=== PATIENT | female | born 1930 | race Caucasian/White ===

== ENCOUNTER 2018-09-14 17:11 | Inpatient (IN) | payer MEDICARE ==
--- NOTE | 2018-09-14 17:37 | ED Physician Chart ---
ED Chief Complaint/HPI - Patient Information Date Seen:: 09/14/18 Time Seen:: 17:25 Chief Complaint:: agitation History of Present Illness:: Patient's had nearly constant screaming for the last few months. She's also had an unknown amount of weight loss over the last 2 months. Patient is wheelchair-bound. Allergies:: Allergies Allergy/AdvReac Type Severity Reaction Status Date / Time codeine Allergy Verified 09/14/18 17:24 divalproex sodium Allergy Verified 09/14/18 17:23 [From Depakote] Sulfa (Sulfonamide Allergy Verified 09/14/18 17:25 Antibiotics) sulfamethoxazole Allergy Verified 09/14/18 17:23 [From Bactrim] trimethoprim [From Bactrim] Allergy Verified 09/14/18 17:23 sulfate Allergy Uncoded 09/14/18 17:24 Historian:: Family Member Review:: Nurse's Note Reviewed ED Review of Systems - Review of Systems General/Constitutional: No fever, No chills, No weight loss, No weakness, No diaphoresis, No edema, No loss of appetite Skin: No skin lesions, No rash, No bruising Head: No headache, No light-headedness Eyes: No loss of vision, No pain, No diplopia ENT: No earache, No nasal drainage, No sore throat, No tinnitus Neck: No neck pain, No swelling, No thyromegaly, No stiffness, No mass noted Cardio Vascular: No chest pain, No palpitations, No PND, No orthopnea, No edema Pulmonary: No SOB, No cough, No sputum, No wheezing GI: No nausea, No vomiting, No diarrhea, No pain, No melena, No hematochezia, No constipation, No hematemesis G/U: No dysuria, No frequency, No hematuria Musculoskeletal: No bone or joint pain, No back pain, No muscle pain Endocrine: No polyuria, No polydipsia Psychiatric: Prior psych history, Anxiety, Other (agitation) Hematopoietic: No bruising, No lymphadenopathy Allergic/Immuno: No urticaria, No angioedema Neurological: No syncope, No focal symptoms, No weakness, No paresthesia, No headache, No seizure, No dizziness, No confusion, No vertigo ED Past Medical History - Past Medical History Past Medical History: HTN, Dementia Family History: HTN Social History: Non Smoker, No Alcohol Surgical History: Appendectomy, Hysterectomy, other (tonsillectomy) Psychiatricy History: Dementia Medication: Reviewed ED Physical Exam - Physical Examination General/Constitutional: Awake, Well-developed, well-nourished Other Gen/Cons comments:: Chronically ill-appearing; almost constant screaming Head: Atraumatic Eyes: Lids, conjuctiva normal, PERRL Skin: Nl inspection, No rash ENMT: External ears, nose nl, Lips, teeth, gums nl Neck: No stridor Respiratory: Nl effort/Exclusion, Clear to Auscultation Other Cardio Vascular comments:: Heart sounds faint; pulse regular GI: No tenderness/rebounding/guarding Extremities: Normal digits & nails Neuro/Psych: No focal deficits ED Labs/Radiology/EKG Results - Lab Results Results: Laboratory Results WBC 13.2 Th/cmm (4.8-10.8) H 09/14/18 17:40 RBC 4.42 Mil/cmm (3.80-5.20) 09/14/18 17:40 Hgb 13.8 gm/dL (12-16) 09/14/18 17:40 Hct 40.5 % (41.0-60) L 09/14/18 17:40 MCV 91.7 fl (81-100) 09/14/18 17:40 MCH 31.2 pg (27.0-31.0) H 09/14/18 17:40 MCHC Differential 34.0 pg (28.0-36.0) 09/14/18 17:40 RDW 15.4 % (11.5-20.0) 09/14/18 17:40 Plt Count 425 Th/cmm (150-400) H 09/14/18 17:40 MPV 7.5 fl 09/14/18 17:40 Neutrophils % 83.8 % (40.0-80.0) H 09/14/18 17:40 Lymphocytes % 11.0 % (20.0-50.0) L 09/14/18 17:40 Monocytes % 4.5 % (2.0-10.0) 09/14/18 17:40 Eosinophils % 0.7 % (0.0-5.0) 09/14/18 17:40 Basophils % 0.0 % (0.0-2.0) 09/14/18 17:40 Sodium 139 mEq/L (136-145) 09/14/18 17:40 Potassium 4.1 mEq/L (3.5-5.1) 09/14/18 17:40 Chloride 103 mEq/L (98-107) 09/14/18 17:40 Carbon Dioxide 26.5 mEq/L (21.0-31.0) 09/14/18 17:40 Anion Gap 13.6 (7.0-16.0) 09/14/18 17:40 BUN 20 mg/dL (7-25) 09/14/18 17:40 Creatinine 0.7 mg/dL (0.6-1.2) 09/14/18 17:40 Est GFR ( Amer) TNP 09/14/18 17:40 Est GFR (Non-Af Amer) TNP 09/14/18 17:40 BUN/Creatinine Ratio 28.6 09/14/18 17:40 Glucose 125 mg/dL (70-105) H 09/14/18 17:40 Calcium 9.7 mg/dL (8.6-10.3) 09/14/18 17:40 Total Bilirubin 0.4 mg/dL (0.3-1.0) 09/14/18 17:40 AST 21 U/L (13-39) 09/14/18 17:40 ALT 15 U/L (7-52) 09/14/18 17:40 Alkaline Phosphatase 114 U/L (34-104) H 09/14/18 17:40 Total Protein 7.5 gm/dL (6.0-8.3) 09/14/18 17:40 Albumin 4.0 gm/dL (3.7-5.3) 09/14/18 17:40 Globulin 3.5 gm/dL 09/14/18 17:40 Albumin/Globulin Ratio 1.1 (1.0-1.8) 09/14/18 17:40 Triglycerides 139 mg/dL (<150) 09/14/18 17:40 Cholesterol 168 mg/dL (<200) 09/14/18 17:40 LDL Cholesterol Direct 94 mg/dL (75-193) 09/14/18 17:40 HDL Cholesterol 48 mg/dL (23-92) 09/14/18 17:40 - EKG Interpretations Rate & Rhythm: sinus tachycardia with a rate of 112 Norvell: normal axis Comments:: 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 Patient has a pulse ox of 97% on room air and was not observed to be coughing. Because of the patient's dementia and extreme agitation it would be very difficult to obtain a urine for urinalysis. ED Septic Shock - . Is Septic Shock (SBP<90, OR Lactate>4 mmol\L) present?: No ED Reassessment (Disposition) - Reassessment Reassessment Condition:: Unchanged - Diagnosis Diagnosis:: Dementia with extreme agitation - Patient Disposition Admitted to:: [facility] Admitting Medical Physician:: Vadim Taylor Admitting Psych Physician:: Brendan Espinoza
[2018-09-14 17:47] LABS: % EOSINOPHILS 0.7 % (0.0-5.0); % MONOCYTES 4.5 % (2.0-10.0); % NEUTROPHILS 83.8 % (40.0-80.0); EOSINOPHILE ABSOLUTE 0.1 Th/cmm (0.1-0.4); HEMATOCRIT 40.5 % (41.0-60); HEMOGLOBIN 13.8 gm/dL (12-16); LYMPHOCYTE ABSOLUTE 1.5 Th/cmm (1.5-3.0); MEAN CELL VOLUME 91.7 fl (81-100); MEAN CORPUSCULAR HEMOGLOBIN 31.2 pg (27.0-31.0); MEAN PLATELET VOLUME 7.5 fl; MONOCYTE ABSOLUTE 0.6 Th/cmm (0.3-1.0); PLATELET COUNT 425 Th/cmm (150-400); RED BLOOD COUNT 4.42 Mil/cmm (3.80-5.20); RED CELL DISTRIBUTION WIDTH 15.4 % (11.5-20.0); WHITE BLOOD COUNT 13.2 Th/cmm (4.8-10.8)
[2018-09-14 18:01] LABS: ALB/GLOB RATIO 1.1 (1.0-1.8); ALKALINE PHOSPHATASE 114 U/L (34-104); ANION GAP 13.6 (7.0-16.0); BILIRUBIN,TOTAL 0.4 mg/dL (0.3-1.0); BUN - UREA NITROGEN 20 mg/dL (7-25); CALCIUM SERUM 9.7 mg/dL (8.6-10.3); CARBON DIOXIDE 26.5 mEq/L (21.0-31.0); CHLORIDE 103 mEq/L (98-107); CHOLESTEROL 168 mg/dL (<200); CREATININE - SERUM 0.7 mg/dL (0.6-1.2); GLUCOSE 125 mg/dL (70-105); HDL -HIGH DENSITY LIPOPROTEIN 48 mg/dL (23-92); POTASSIUM SERUM 4.1 mEq/L (3.5-5.1); SGOT 21 U/L (13-39); SGPT/ALT 15 U/L (7-52); SODIUM SERUM 139 mEq/L (136-145); TOTAL PROTEIN,SERUM 7.5 gm/dL (6.0-8.3); TRIGLYCERIDES 139 mg/dL (<150)
[2018-09-14] MEDS ORDERED: Haloperidol Lactate 5 mg/mL 1mL Vial IM PRN (20:10)
[2018-09-14] MEDS ORDERED: Haloperidol Lactate 5 mg/mL 1mL Vial ONE (20:29)
[2018-09-14] MEDS ORDERED: Fleet Enema 135 mL RC PRN (22:37)
[2018-09-15] MEDS: cefTRIAXone 1 GM in Sodium Chloride 0.9% 50 ML IV SCH ×2 (01:29→22:47)
[2018-09-15 06:42] LABS: ALB/GLOB RATIO 1.1 (1.0-1.8); ALBUMIN 3.8 gm/dL (3.7-5.3); ALKALINE PHOSPHATASE 125 U/L (34-104); ANION GAP 15.4 (7.0-16.0); BILIRUBIN,TOTAL 0.4 mg/dL (0.3-1.0); BUN - UREA NITROGEN 18 mg/dL (7-25); CALCIUM SERUM 9.6 mg/dL (8.6-10.3); CHLORIDE 105 mEq/L (98-107); CREATININE - SERUM 0.6 mg/dL (0.6-1.2); GLUCOSE 143 mg/dL (70-105); POTASSIUM SERUM 3.4 mEq/L (3.5-5.1); SGOT 22 U/L (13-39); SGPT/ALT 14 U/L (7-52); SODIUM SERUM 141 mEq/L (136-145); TOTAL PROTEIN,SERUM 7.2 gm/dL (6.0-8.3)
[2018-09-15 06:55] LABS: % BASOPHILS 0.6 % (0.0-2.0); % EOSINOPHILS 1.1 % (0.0-5.0); % LYMPHOCYTES 10.1 % (20.0-50.0); % MONOCYTES 5.2 % (2.0-10.0); BASOPHILE ABSOLUTE 0.1 Th/cumm (0-0.2); EOSINOPHILE ABSOLUTE 0.1 Th/cmm (0.1-0.4); HEMATOCRIT 38.3 % (41.0-60); HEMOGLOBIN 12.7 gm/dL (12-16); LYMPHOCYTE ABSOLUTE 1.3 Th/cmm (1.5-3.0); MEAN CELL VOLUME 91.9 fl (81-100); MEAN CORPUSCULAR HEMOGLOBIN 30.5 pg (27.0-31.0); MEAN CORPUSCULAR HGB CONC 33.2 pg (28.0-36.0); MONOCYTE ABSOLUTE 0.7 Th/cmm (0.3-1.0); PLATELET COUNT 416 Th/cmm (150-400); RED BLOOD COUNT 4.17 Mil/cmm (3.80-5.20); RED CELL DISTRIBUTION WIDTH 15.4 % (11.5-20.0); WHITE BLOOD COUNT 13.2 Th/cmm (4.8-10.8)
--- NOTE | 2018-09-15 07:54 | Consultation ---
DATE OF CONSULTATION: 09/15/2018 PSYCHIATRIC CONSULT PATIENT'S AGE: 88. SEX: Female. PHYSICIAN: Dr. Taylor. BOTTLE HOUSE PUMPER: Dr. Vallecillo. TYPE OF THE REPORT: Psychiatric consult. REASON FOR THE CONSULT: Agitation. HISTORY OF PRESENT ILLNESS: The patient is an 88-year-old female with history of dementia. The patient was transferred from [facility] because of increased agitation and because of irritability and difficulty following directions. The patient has been easily agitated and irritable. Chart reviewed and the patient interviewed and discussed the patient's condition with the staff and reviewed records and labs. The patient has been yelling and screaming and during my interview, the patient was not able to follow any of my directions and can kept yelling and screaming constantly. She also has been restless and has been having mood swings. She also has been in angry mood and she was not able to answer any of my questions coherently. No information was able to be obtained from the patient because of her psychosis and because of her confusion. Most of the information was obtained from staff and from the chart and my trial to interview the patient. PAST PSYCHIATRIC HISTORY: The patient has history of dementia. PAST MEDICAL HISTORY: The patient has history of seizure disorder and the patient is on Dilantin. The patient also is status post hip surgery in November of last year. MENTAL STATUS EXAM: The patient appears her stated age. Yelling and screaming. Irritable mood. Disorganized thoughts. The patient is unable to answer any of my questions coherently and kept yelling and screaming during my interview. The patient also is restless and the patient is not able to follow any of my directions. ASSESSMENT: PRIMARY DIAGNOSIS: Dementia, severe, with psychotic features and behavioral disturbances. TREATMENT PLAN: We will continue to monitor her behavior and her condition. Also, we will add Risperdal in a dose of 0.25 mg twice a day and we will continue to follow up closely. Thanks to Dr. Taylor and we will follow up with you. [facility]# [id number]
[2018-09-15 08:16] LABS: URINE SOURCE CATH
[2018-09-15 08:18] LABS: URINE BILIRUBIN NEGATIVE (NEGATIVE); URINE BLOOD SMALL (NEGATIVE); URINE GLUCOSE (UA) NEGATIVE (NEGATIVE); URINE KETONE NEGATIVE (NEGATIVE); URINE LEUKOCYTE ESTERASE LARGE (NEGATIVE); URINE MICROSCOPIC INDICATED? YES; URINE NITRATE NEGATIVE (NEGATIVE); URINE PH 6.5 (4.6 - 8.0); URINE PROTEIN 30 mg/dL (NEGATIVE); URINE UROBILINOGEN 0.2 E.U./dL (0.2 - 1.0)
[2018-09-15 08:21] LABS: URINE CLARITY CLOUDY (CLEAR); URINE COLOR YELLOW
[2018-09-15 08:32] LABS: URINE BACTERIA MODERATE /hpf (NONE SEEN); URINE EPITHELIAL CELLS NONE SEEN /lpf (FEW); URINE WBC >100 /hpf (0-5)
--- NOTE | 2018-09-15 08:52 | Diagnostic Imaging Report ---
Portable chest x-ray HISTORY: Cough There is a severe scoliosis of the thoracic spine convexity to the right. Patient is rotated. Heart size is difficult to assess. No focal pulmonary processes. IMPRESSION: 1. No acute abnormalities 2. Severe scoliosis
--- NOTE | 2018-09-15 08:55 | Diagnostic Imaging Report ---
CT scan of the brain without intravenous contrast HISTORY: Stroke, CVA Total DLP equals 911 CTDI equals 44.2 Axial sections were obtained from the base of the skull to the vertex. Extensive artifact related to dental metallic hardware compromises evaluation of the posterior fossa. There is enlargement of the ventricular system size. Associated enlargement of cerebral sulci and subarachnoid cisterns. Findings are consistent with changes of generalized cerebral atrophy. No acute parenchymal abnormalities. No acute cerebral hemorrhage. Extensive hypodensity is seen within the supratentorial white matter regions without mass effect. The findings may be associated with chronic small vessel ischemic disease. No extra-axial masses or abnormal fluid collections. IMPRESSION: 1. No acute abnormalities 2. Cerebral atrophy 3. Extensive supratentorial white matter changes that may reflect chronic small vessel ischemic disease 4. Somewhat compromised exam of the posterior fossa related to artifact associated with metallic dental hardware
[2018-09-15] MEDS ORDERED: LOSARTAN PO SCH (09:00)
[2018-09-15] MEDS ORDERED: HYDROCHLOROTHIAZIDE PO SCH (09:00)
[2018-09-15] MEDS ORDERED: Probiotic Screen MC PRN (09:01)
[2018-09-15] MEDS ORDERED: cefTRIAXone 1 GM in Sodium Chloride 0.9% 50 ML IV ONE (09:24)
[2018-09-15] MEDS: Polyvinyl Alcohol Ophth Soln 15 mL Bottle EACH EYE SCH ×2 (10:27→17:32)
[2018-09-15] MEDS: Lactobacillus Rhamnosus GG 15 Billion CFU CAP.SPRINK PO SCH ×2 (10:28→17:33)
[2018-09-15] MEDS ORDERED: VTE Chemical Prophylaxis Screen/Admission MC PRN (15:51)
--- NOTE | 2018-09-15 17:26 | History & Physical ---
ADMIT DATE: 09/14/2018 PATIENT IDENTIFICATION: An 88-year-old female. CHIEF COMPLAINT: Increasing confusion and agitation. HISTORY OF PRESENT ILLNESS: An 88-year-old female presented to [facility] for evaluation of increasing agitation, aggressive behavior and significant change from the baseline. The patient has been having a significant amount of weight loss for last few months. The patient is pretty much wheelchair bound. She was evaluated by Emergency Room MD and noted to have a leukocytosis. According to the patient's family member that whenever she has this type of agitation and aggressive behavior, there is some infection playing a role. She was recently admitted at [facility] and she was diagnosed to have urinary tract infection. The patient is extremely agitated and unable to get the urine from her. She was also seen by the psychiatrist prior to my visit today. The patient currently does not provide any meaningful history. PAST MEDICAL HISTORY: Remarkable for: 1. Hypertension. 2. Dementia. 3. DJD. 4. Depression. 5. Glaucoma. MEDICATIONS AT HOME: The patient is taking multiple medicines which include eyedrops, mirtazapine, losartan, Lactobacillus, gabapentin, Fleet Enema, Aricept, Colace, Tylenol. ALLERGIES: THE PATIENT IS ALLERGIC TO CODEINE AND DEPAKOTE. SOCIAL HISTORY: She is a resident of [facility]. No history of smoking, alcohol, or drug use. FAMILY MEDICAL HISTORY: Unavailable. REVIEW OF SYSTEMS: Unable to get meaningful history from the patient. PHYSICAL EXAMINATION: GENERAL: An 88-year-old ill-appearing female lying in the bed. VITAL SIGNS: Temperature 97.7, pulse 86, respiratory rate was 18, blood pressure 163/77. HEENT: Normocephalic, atraumatic. Extraocular eye muscles are intact. Tongue was pink and coated. Absent upper and lower dentition noted. No facial asymmetry. NECK: Supple, no JVD, no hepatojugular reflex, no lymphadenopathy, thyromegaly or carotid bruit. HEART: Both heart sounds are regular. Grade 2/6 systolic murmur noted. CHEST: Lung equal in expansion, no expiratory wheezing. ABDOMEN: Soft. No guarding, no rigidity. Bowel sounds present. No palpable mass. EXTREMITIES: No edema, no cyanosis. Diffuse osteoarthritic changes noted. NEUROLOGIC: Unable to perform, though the patient is moving upper and lower extremities without any difficulty. AVAILABLE DIAGNOSTIC DATA: White count 13.2, hemoglobin 13.8, platelet count of 425. EKG normal sinus rhythm with a rate of 112. Old anterior wall W[place] noted. Chest x-ray done, which no congestion. CT head consistent with atrophy of brain. Urinalysis has been sent, which remarkable for cloudy urine, 30+ protein, large leukocyte esterase, small amount of blood, more than 100 wbc, moderate amount of bacteria. CLINICAL IMPRESSION: 1. Encephalopathy secondary to infectious etiology. 2. Urinary tract infection. 3. Hypertension. 4. Dementia. 5. Psychosis with dementia. 6. Degenerative joint disease. 7. Osteoporosis. 8. High risk for fall. PLAN: The patient is advised at this time to start IV Rocephin 1 gram daily, have Neurology and psychiatrist evaluation. Appropriate home medicine reconciliation. IV hydration, nutritional support, general nursing care and follow lab and follow business analysis consultant recommendations. Care plan has been reviewed and discussed with staff. [facility]# [id number]
[2018-09-15] MEDS: Heparin Sod 5,000Units/ML 5,000 UNITS/ML VIAL SUBQ SCH (20:29)
[2018-09-16] MEDS: Heparin Sod 5,000Units/ML 5,000 UNITS/ML VIAL SUBQ SCH ×2 (09:21→20:17)
[2018-09-16] MEDS: Lactobacillus Rhamnosus GG 15 Billion CFU CAP.SPRINK PO SCH ×2 (09:23→17:05)
[2018-09-16] MEDS: Polyvinyl Alcohol Ophth Soln 15 mL Bottle EACH EYE SCH ×2 (09:24→17:06)
[2018-09-16] MEDS: D5-0.45NS 1,000 ML IV SCH (13:33)
--- NOTE | 2018-09-16 21:56 | Progress Notes ---
DATE: 09/16/[address] Vallecillo. Case was discussed with staff of the patient, reviewed records. This is an 88-year-old female who was admitted on 09/14/2018. She was seen by Dr. Vallecillo yesterday because of extreme agitation, was initiated on Risperdal. The patient yesterday was very agitated, yelling and screaming, was unable to give any information. Today, she is more on the sedated side. The staff report that she is improving. She is also on Remeron 15 mg twice a day that was initiated by Dr. Taylor. The patient recommended to continue the same medication. The patient needs follow up with a psychiatrist when discharged. Thank you very much for allowing me to participate in the care of this most interesting lady. [facility]# [id number]
[2018-09-16] MEDS: cefTRIAXone 1 GM in Sodium Chloride 0.9% 50 ML IV SCH (22:05)
--- NOTE | 2018-09-17 02:07 | Progress Notes ---
DATE: 09/16/2018 IDENTIFICATION: An 88-year-old female. SUBJECTIVE: The patient seen and examined. The patient is lying in the bed. The patient has no new event. Urine culture is currently pending. The patient is not violent as per nursing staff, not aggressive as per nursing staff. PHYSICAL EXAMINATION: VITAL SIGNS: Temperature 97.6, pulse 88, respiratory rate 18, blood pressure 113/50. HEENT: Poor dentition. NECK: Supple, no JVD. HEART: Regular. CHEST: Lungs equal in expansion, no expiratory wheezing. ABDOMEN: Soft. EXTREMITIES: No edema. CLINICAL IMPRESSION: 1. Encephalopathy, infectious in etiology. 2. Complicated urinary tract infection. 3. Hypertension. 4. Dementia. 5. Degenerative joint disease. 6. Protein-calorie malnutrition. 7. Psychosis. 8. Osteoporosis. 9. High risk for fall. PLAN: 1. Continue antibiotic. 2. Await for cultures. 3. Provide IV fluid and nutritional support. 4. Psychiatric medication and psych followup. 5. General nursing care. 6. Follow labs. 7. Follow data warehouse consultant's recommendations. 8. Care plan reviewed and discussed with staff. JOB# [id number]
[2018-09-17 06:55] LABS: ALB/GLOB RATIO 1.1 (1.0-1.8); ALBUMIN 3.6 gm/dL (3.7-5.3); ALKALINE PHOSPHATASE 122 U/L (34-104); ANION GAP 11.9 (7.0-16.0); BILIRUBIN,TOTAL 0.5 mg/dL (0.3-1.0); BUN - UREA NITROGEN 16 mg/dL (7-25); CALCIUM SERUM 9.3 mg/dL (8.6-10.3); CARBON DIOXIDE 25.4 mEq/L (21.0-31.0); CHLORIDE 106 mEq/L (98-107); CREATININE - SERUM 0.5 mg/dL (0.6-1.2); GLUCOSE 119 mg/dL (70-105); POTASSIUM SERUM 3.3 mEq/L (3.5-5.1); SGOT 16 U/L (13-39); SGPT/ALT 12 U/L (7-52); SODIUM SERUM 140 mEq/L (136-145); TOTAL PROTEIN,SERUM 6.8 gm/dL (6.0-8.3)
[2018-09-17 06:56] LABS: % LYMPHOCYTES 12.2 % (20.0-50.0); % MONOCYTES 5.3 % (2.0-10.0); % NEUTROPHILS 81.5 % (40.0-80.0); EOSINOPHILE ABSOLUTE 0.1 Th/cmm (0.1-0.4); HEMATOCRIT 36.9 % (41.0-60); HEMOGLOBIN 12.2 gm/dL (12-16); LYMPHOCYTE ABSOLUTE 1.4 Th/cmm (1.5-3.0); MEAN CELL VOLUME 92.9 fl (81-100); MEAN CORPUSCULAR HEMOGLOBIN 30.6 pg (27.0-31.0); MEAN CORPUSCULAR HGB CONC 32.9 pg (28.0-36.0); MONOCYTE ABSOLUTE 0.6 Th/cmm (0.3-1.0); NEUTROPHILE ABSOLUTE 9.1 Th/cmm (1.8-8.0); PLATELET COUNT 343 Th/cmm (150-400); RED BLOOD COUNT 3.97 Mil/cmm (3.80-5.20); RED CELL DISTRIBUTION WIDTH 14.8 % (11.5-20.0); WHITE BLOOD COUNT 11.2 Th/cmm (4.8-10.8)
[2018-09-17] MEDS: Polyvinyl Alcohol Ophth Soln 15 mL Bottle EACH EYE SCH ×2 (08:34→17:11)
[2018-09-17] MEDS: Lactobacillus Rhamnosus GG 15 Billion CFU CAP.SPRINK PO SCH ×2 (08:35→16:56)
[2018-09-17] MEDS: Heparin Sod 5,000Units/ML 5,000 UNITS/ML VIAL SUBQ SCH ×2 (08:38→22:39)
[2018-09-17] MEDS: D5-0.45NS 1,000 ML IV SCH (13:16)
[2018-09-17] MEDS ORDERED: Potassium Chloride 20 mEq ER Tab PO ONE ×2 (13:42→13:45)
--- NOTE | 2018-09-17 22:17 | Progress Notes ---
DATE: 09/17/2018 Case was discussed with staff of the patient, reviewed records. The patient in general has been calmer, sleeping better, eating better. No side effects with the medication, no sedation, no nausea. She is not as agitated. The Risperdal has helped. The patient needs to be continued to be monitored. The patient needs follow up with the psychiatrist upon discharge. Thank you very much for allowing me to participate in the care of this most interesting gentleman. JOB# [id number]
[2018-09-17] MEDS: cefTRIAXone 1 GM in Sodium Chloride 0.9% 50 ML IV SCH (22:38)
--- NOTE | 2018-09-18 08:04 | Progress Notes ---
DATE: THE PATIENT'S IDENTIFICATION: An 88-year-old female. SUBJECTIVE: The patient was seen and examined. The patient is lying in the bed. The patient is more alert and awake. The patient was able to eat fairly well. OBJECTIVE: VITAL SIGNS: On exam; temperature 97, pulse is 80, respiratory rate 18, blood pressure 146/51. HEENT: No facial asymmetry. Poor dentition noted. NECK: Supple, no JVD, no hepatojugular reflex. No lymphadenopathy or thyromegaly. HEART: Both heart sounds are regular. CHEST AND LUNGS: Equal in expansion, no expiratory wheezing. ABDOMEN: Soft. No guarding. No rigidity. Bowel sounds are present. No palpable mass. EXTREMITIES: No edema, no cyanosis. NEUROLOGIC: Alert and awake, follows commands. AVAILABLE DIAGNOSTIC DATA: Has been reviewed. CLINICAL IMPRESSIONS: 1. Complicated urinary tract infection. 2. Encephalopathy. 3. Dementia. 4. Hypertension. 5. Degenerative joint disease. PLAN: The patient is currently clinically improving. At this time, the patient will be considered transfer to Geropsych Unit. Meanwhile, continue current medication as prescribed. Upon transfer, the patient's medication will be switched to p.o. antibiotic. We will give the patient's p.o. potassium as well. Follow up lab will be done. JOB# [id number]
[2018-09-18] MEDS: Lactobacillus Rhamnosus GG 15 Billion CFU CAP.SPRINK PO SCH ×2 (09:50→17:05)
[2018-09-18] MEDS: Heparin Sod 5,000Units/ML 5,000 UNITS/ML VIAL SUBQ SCH ×2 (09:59→20:35)
[2018-09-18] MEDS: D5-0.45NS 1,000 ML IV SCH (10:34)
[2018-09-18] MEDS: Polyvinyl Alcohol Ophth Soln 15 mL Bottle EACH EYE SCH ×3 (10:35→18:08)
--- NOTE | 2018-09-18 12:59 | Internal Medicine Prog Note ---
Internal Medicine Subjective - Subjective Service Date: 09/18/18 Patient seen and examined:: with staff Patient is:: awake, agitated, confused Patient Complaints of:: weight loss Per staff patient has:: no adverse event, no episodes of fall Internal Medicine Objective - Results Result Diagrams: 09/17/18 06:25 09/17/18 06:25 Recent Labs: Laboratory Last Values WBC 11.2 Th/cmm (4.8-10.8) H 09/17/18 06:25 RBC 3.97 Mil/cmm (3.80-5.20) 09/17/18 06:25 Hgb 12.2 gm/dL (12-16) 09/17/18 06:25 Hct 36.9 % (41.0-60) L 09/17/18 06:25 MCV 92.9 fl (81-100) 09/17/18 06:25 MCH 30.6 pg (27.0-31.0) 09/17/18 06:25 MCHC Differential 32.9 pg (28.0-36.0) 09/17/18 06:25 RDW 14.8 % (11.5-20.0) 09/17/18 06:25 Plt Count 343 Th/cmm (150-400) 09/17/18 06:25 MPV 8.0 fl 09/17/18 06:25 Neutrophils % 81.5 % (40.0-80.0) H 09/17/18 06:25 Lymphocytes % 12.2 % (20.0-50.0) L 09/17/18 06:25 Monocytes % 5.3 % (2.0-10.0) 09/17/18 06:25 Eosinophils % 1.0 % (0.0-5.0) 09/17/18 06:25 Basophils % 0.0 % (0.0-2.0) 09/17/18 06:25 Sodium 140 mEq/L (136-145) 09/17/18 06:25 Potassium 3.3 mEq/L (3.5-5.1) L 09/17/18 06:25 Chloride 106 mEq/L (98-107) 09/17/18 06:25 Carbon Dioxide 25.4 mEq/L (21.0-31.0) 09/17/18 06:25 Anion Gap 11.9 (7.0-16.0) 09/17/18 06:25 BUN 16 mg/dL (7-25) 09/17/18 06:25 Creatinine 0.5 mg/dL (0.6-1.2) L 09/17/18 06:25 Est GFR ( Amer) TNP 09/17/18 06:25 Est GFR (Non-Af Amer) TNP 09/17/18 06:25 BUN/Creatinine Ratio 32.0 09/17/18 06:25 Glucose 119 mg/dL (70-105) H 09/17/18 06:25 POC Glucose 125 MG/DL (70 - 105) H 09/15/18 09:36 Calcium 9.3 mg/dL (8.6-10.3) 09/17/18 06:25 Magnesium 2.0 mg/dL (1.9-2.7) 09/15/18 06:05 Total Bilirubin 0.5 mg/dL (0.3-1.0) 09/17/18 06:25 AST 16 U/L (13-39) 09/17/18 06:25 ALT 12 U/L (7-52) 09/17/18 06:25 Alkaline Phosphatase 122 U/L (34-104) H 09/17/18 06:25 Ammonia 71 umol/L (16-53) H 09/15/18 06:05 Total Protein 6.8 gm/dL (6.0-8.3) 09/17/18 06:25 Albumin 3.6 gm/dL (3.7-5.3) L 09/17/18 06:25 Globulin 3.2 gm/dL 09/17/18 06:25 Albumin/Globulin Ratio 1.1 (1.0-1.8) 09/17/18 06:25 Triglycerides 139 mg/dL (<150) 09/14/18 17:40 Cholesterol 168 mg/dL (<200) 09/14/18 17:40 LDL Cholesterol Direct 94 mg/dL (75-193) 09/14/18 17:40 HDL Cholesterol 48 mg/dL (23-92) 09/14/18 17:40 TSH 1.32 uIU/ml (0.34-5.60) 09/14/18 17:40 Urine Source CATH 09/15/18 08:00 Urine Color YELLOW 09/15/18 08:00 Urine Clarity CLOUDY (CLEAR) H 09/15/18 08:00 Urine pH 6.5 (4.6 - 8.0) 09/15/18 08:00 Ur Specific Irving 1.015 (1.005-1.030) 09/15/18 08:00 Urine Protein 30 mg/dL (NEGATIVE) H 09/15/18 08:00 Urine Glucose (UA) NEGATIVE mg/dL (NEGATIVE) 09/15/18 08:00 Urine Ketones NEGATIVE mg/dL (NEGATIVE) 09/15/18 08:00 Urine Blood SMALL (NEGATIVE) H 09/15/18 08:00 Urine Nitrate NEGATIVE (NEGATIVE) 09/15/18 08:00 Urine Bilirubin NEGATIVE (NEGATIVE) 09/15/18 08:00 Urine Urobilinogen 0.2 E.U./dL (0.2 - 1.0) 09/15/18 08:00 Ur Leukocyte Esterase LARGE (NEGATIVE) H 09/15/18 08:00 Urine RBC 10-25 /hpf (0-5) H 09/15/18 08:00 Urine WBC >100 /hpf (0-5) H 09/15/18 08:00 Ur Epithelial Cells NONE SEEN /lpf (FEW) 09/15/18 08:00 Urine Bacteria MODERATE /hpf (NONE SEEN) H 09/15/18 08:00 RPR NONREACTIVE (NONREACTIVE) 09/14/18 17:40 - Physical Exam Vitals and I&O: Vital Signs Temp 98 F 09/18/18 11:53 Pulse 80 09/18/18 11:53 Resp 18 09/18/18 11:53 BP 144/57 09/18/18 11:53 Pulse Ox 97 09/18/18 11:53 Intake & Output 09/17/18 09/18/18 09/18/18 18:59 06:59 18:59 Intake Total 1125 1000 Balance 1125 1000 Weight (lbs) 33.52 kg 34.156 kg Intake: Intake, IV Amount 1000 1000 D5-0.45NS 1,000 ml @ 50 1000 1000 mls/hr IV .Q20H VIC Rx#: [id number] Oral 125 Other: # Voids 3 3 # Bowel Movements 0 Weight Source Bedscale Bedscale Active Medications: Current Medications Acetaminophen (Tylenol) 650 mg PO Q4H PRN PRN Reason: Pain (Moderate) Stop: 11/14/18 05:35 Last Admin: 09/17/18 22:39 Dose: 650 mg Artificial Tears (Artificial Tears Ophth Soln) 2 drop EACH EYE BID [facility] Stop: 11/14/18 08:59 Last Admin: 09/18/18 10:40 Dose: Not Given Bisacodyl (Dulcolax 10 Mg Supp) 10 mg RC Q2D PRN PRN Reason: Constipation Stop: 11/13/18 22:36 Docusate Sodium (Colace) 100 mg PO BID [facility] Stop: 11/14/18 08:59 Last Admin: 09/18/18 09:47 Dose: 100 mg Donepezil HCl (Aricept) 5 mg PO HS [facility] Stop: 11/14/18 20:59 Last Admin: 09/17/18 22:39 Dose: 5 mg Gabapentin (Neurontin) 300 mg PO TID [facility] Stop: 11/14/18 08:59 Last Admin: 09/18/18 09:47 Dose: 300 mg Gentamicin Sulfate (Gentak 0.3% Ophth Soln) 1 drop EACH EYE TID [facility] Stop: 11/17/18 13:59 Heparin Sodium (Porcine) (Heparin) 5,000 units SUBQ Q12H [facility] Stop: 11/14/18 20:59 Last Admin: 09/18/18 09:59 Dose: 5,000 units Hydrochlorothiazide (Hctz) 25 mg PO DAILY [facility] Stop: 11/14/18 08:59 Last Admin: 09/18/18 09:56 Dose: 25 mg Ceftriaxone Sodium 1 gm/ (Sodium Chloride) 50 mls @ 100 mls/hr IV Q24HR [facility] Stop: 11/13/18 22:44 Last Admin: 09/17/18 22:38 Dose: 100 mls/hr Dextrose/Sodium Chloride (D5-0.45ns) 1,000 mls @ 50 mls/hr IV .Q20H [facility] Stop: 11/15/18 13:14 Last Admin: 09/18/18 10:34 Dose: 50 mls/hr Lactobacillus Rhamnosus (Culturelle 15b) 1 each PO BID [facility] Stop: 11/14/18 08:59 Last Admin: 09/18/18 09:50 Dose: 1 each Latanoprost (Xalatan 0.005% Ophth Soln) 1 drop EACH EYE HS [facility] Stop: 11/14/18 20:59 Last Admin: 09/17/18 23:17 Dose: 1 drop Losartan Potassium (Cozaar) 100 mg PO DAILY VIC Stop: 11/14/18 08:59 Last Admin: 09/18/18 09:56 Dose: 100 mg Mirtazapine (Remeron) 15 mg PO BID VIC; Protocol Stop: 11/14/18 08:59 Last Admin: 09/18/18 09:51 Dose: 15 mg Miscellaneous (Probiotic Screen) 1 ea PRN PRN PRN Reason: PROTOCOL Stop: 11/14/18 09:00 Miscellaneous (Vte Chemical Prophylaxis Screen/ Admission) 1 ea PRN PRN PRN Reason: PROTOCOL Stop: 11/14/18 15:50 Risperidone (Risperdal) 0.25 mg PO BID VIC; Protocol Stop: 11/14/18 11:59 Last Admin: 09/18/18 09:47 Dose: 0.25 mg Sodium Phosphate (Fleet Enema) 135 ml RC Q2D PRN PRN Reason: Constipation Stop: 11/13/18 22:36 Physical Exam: Patient is still very confused and agitated. General: demented Neck: Supple, No JVD Lungs: CTAB Cardiovascular: RRR, Normal S1 Abdomen: soft, non-tender Extremities: clear Neurological: no change, disorganized Internal Medicine Assmt/Plan - Assessment Assessment: Encephalopathy. UTI. Psychosis with Dementia. Osteoarthritis. High risk for fall. Htn. DJD.Depression. Glaucoma. - Plan Plan: Continuation of care. Monitor Vitals and Labs. Continue present meds as directed. Monitor Diet/Nutritional support. Monitor mental status progression. Monitor behavioral health status. Pain Management. Safety precaution. Supportive care. Fall precaution. Continue present care management. Nutritional Asmnt/Malnutr-PDOC - Dietary Evaluation Malnutrition Findings (Please click <Entered> for more info): see orders.
[2018-09-18] MEDS: Gentamicin 0.3% Ophth Soln 5mL Bottle EACH EYE SCH ×2 (17:06→20:51)
[2018-09-18] MEDS: cefTRIAXone 1 GM in Sodium Chloride 0.9% 50 ML IV SCH (22:39)
--- NOTE | 2018-09-19 00:11 | Progress Notes ---
DATE: 09/18/2018 SUBJECTIVE: The patient is seen and examined. PHYSICAL EXAMINATION: GENERAL: The patient is lying in the bed. The patient is very comfortable. No new event. VITAL SIGNS: Temperature 97.6, pulse 79, respiratory rate 18, blood pressure 145/90. HEENT: Poor dentition. Bilateral conjunctival congestion noted. NECK: Supple, no JVD. HEART: Regular. LUNGS: Clear to auscultation. ABDOMEN: Soft. EXTREMITIES: No edema. CLINICAL IMPRESSION: 1. Encephalopathy, improving. 2. Urinary tract infection. 3. Dementia. 4. Hypertension. 5. Degenerative joint disease. 6. Debility. 7. High risk for fall. PLAN: 1. Switch antibiotic to p.o. and transfer this patient to Geropsych unit. 2. Provide eye drops for conjunctivitis. 3. Continue other medicine as prescribed. 4. Care plan reviewed and discussed with staff. JOB# [id number]
[2018-09-19 04:59] LABS: % BASOPHILS 2.8 % (0.0-2.0); % EOSINOPHILS 2.1 % (0.0-5.0); % LYMPHOCYTES 13.3 % (20.0-50.0); % MONOCYTES 4.6 % (2.0-10.0); % NEUTROPHILS 77.2 % (40.0-80.0); BASOPHILE ABSOLUTE 0.3 Th/cumm (0-0.2); EOSINOPHILE ABSOLUTE 0.2 Th/cmm (0.1-0.4); HEMATOCRIT 34.1 % (41.0-60); HEMOGLOBIN 11.5 gm/dL (12-16); LYMPHOCYTE ABSOLUTE 1.3 Th/cmm (1.5-3.0); MEAN CELL VOLUME 91.6 fl (81-100); MEAN CORPUSCULAR HEMOGLOBIN 30.8 pg (27.0-31.0); MEAN CORPUSCULAR HGB CONC 33.6 pg (28.0-36.0); MEAN PLATELET VOLUME 8.2 fl; MONOCYTE ABSOLUTE 0.4 Th/cmm (0.3-1.0); NEUTROPHILE ABSOLUTE 7.3 Th/cmm (1.8-8.0); PLATELET COUNT 351 Th/cmm (150-400); RED BLOOD COUNT 3.73 Mil/cmm (3.80-5.20); RED CELL DISTRIBUTION WIDTH 14.6 % (11.5-20.0); WHITE BLOOD COUNT 9.5 Th/cmm (4.8-10.8)
[2018-09-19 05:52] LABS: ANION GAP 10.6 (7.0-16.0); BUN - UREA NITROGEN 7 mg/dL (7-25); CALCIUM SERUM 9.1 mg/dL (8.6-10.3); CARBON DIOXIDE 26.5 mEq/L (21.0-31.0); CHLORIDE 106 mEq/L (98-107); CREATININE - SERUM 0.4 mg/dL (0.6-1.2); GLUCOSE 108 mg/dL (70-105); POTASSIUM SERUM 3.1 mEq/L (3.5-5.1); SODIUM SERUM 140 mEq/L (136-145)
[2018-09-19] MEDS: D5-0.45NS 1,000 ML IV SCH (06:33)
[2018-09-19] MEDS: Lactobacillus Rhamnosus GG 15 Billion CFU CAP.SPRINK PO SCH ×2 (09:17→17:29)
[2018-09-19] MEDS: Heparin Sod 5,000Units/ML 5,000 UNITS/ML VIAL SUBQ SCH ×2 (09:18→22:16)
[2018-09-19] MEDS: Gentamicin 0.3% Ophth Soln 5mL Bottle EACH EYE SCH ×3 (09:18→22:16)
[2018-09-19] MEDS: Polyvinyl Alcohol Ophth Soln 15 mL Bottle EACH EYE SCH ×2 (09:18→17:28)
[2018-09-19] MEDS ORDERED: Potassium Chloride Elixir 20 mEq /15 mL UDC PO ONE (10:07)
--- NOTE | 2018-09-19 10:18 | Consultation ---
DATE OF CONSULTATION: 09/18/2018 HISTORY OF PRESENT ILLNESS: An 88-year-old female admitted on 09/14/2018. The patient noted to be very agitated, shouting inappropriate. Seems to be calm at the moment, but still very inappropriate, difficulty in communication. The patient is in the facility. PAST MEDICAL HISTORY: 1. Dementia. 2. Depression, psychosis. 3. Hypertension. 4. Degenerative joint disease. 5. Glaucoma. MEDICATIONS: Per reconciliation. Here, the patient is on Tylenol, donepezil, gabapentin 300 t.i.d., HCTZ and losartan, mirtazapine, Risperdal. REVIEW OF SYSTEMS: Twelve-point negative except for above. PHYSICAL EXAMINATION: VITAL SIGNS: Temperature 98.0, blood pressure 144/57, pulse is 80. NECK: Supple. No neck bruits. CARDIAC: Normal heart sounds. LUNGS: Clear. ABDOMEN: Soft. NEUROLOGIC: The patient is lying in bed. The patient is awake, alert. She has mittens on. She tries to take the IVs out. The patient, when you talk to her, does not seem to even understand. She will not give me her name. She rambles on inappropriately. It is almost like she has aphasia with inability to understand what I am saying and also is unable to name any objects such as pen and glasses. CRANIAL: Pupils react to light. Full eye movement, no nystagmus. No facial weakness. MOTOR: She will lift both arms up. She withdraws lower extremity, but weaker. Reflexes -1 upper extremity, difficult to get the lower extremity. INVESTIGATIONS: CT scan of the head shows severe atrophy. LABORATORY DATA: WBC 11.2, hemoglobin 12.2, platelets okay. The patient's workup shows ammonia to be high at 71 on 09/15. UA shows wbc's over 100. ASSESSMENT: 1. Encephalopathy. 2. Psychosis, probably made worse by patient's urinary tract infection with underlying dementia, seems to be pretty severe, with severe atrophy. 3. Considering her behavior, considering her possibility of aphasia, raises a possibility of FTD. At this time, I agree with present management, the patient's antipsychotic medication and antibiotics. JOB# [id number]
--- NOTE | 2018-09-19 19:37 | Progress Notes ---
DATE: SUBJECTIVE: Chart was reviewed and the patient interviewed. Also discussed the patient's condition with the staff and reviewed records and labs. The patient is still agitated and is still actively hallucinating and actively talking to herself. The patient also is still confused. The patient also is still rambling and is having difficulty expressing her needs. Otherwise, the patient continued to take Remeron at a dose of 50 mg twice a day and Risperdal 0.5 mg twice a day. ASSESSMENT: The patient is still psychotic and is still agitated. TREATMENT PLAN: We will increase Risperdal to 0.5 mg twice a day. Also, continue to monitor her behavior and her condition closely. Also, the patient is a candidate for Geropsych unit if she continued to be confused and she continues to be agitated. [facility]# [id number]
[2018-09-19] MEDS: cefTRIAXone 1 GM in Sodium Chloride 0.9% 50 ML IV SCH (22:15)
--- NOTE | 2018-09-19 23:13 | Progress Notes ---
DATE: 09/19/2018 SUBJECTIVE: The patient is in bed, somewhat sleepy, will awaken, somewhat less agitated than before. Still confused. MEDICATIONS: Donepezil, gabapentin, hydrochlorothiazide, Cozaar, Remeron, Risperdal. OBJECTIVE: VITAL SIGNS: 98.5, blood pressure 113/72, pulse is 96. NECK: Supple. No neck bruits. CARDIOVASCULAR: Normal heart sounds. LUNGS: Clear. NEUROLOGIC: The patient is sleepy, but less agitated, still very confused. Really does not even comprehend sometime when I asked her a question. Not able to name objects. INVESTIGATIONS: CT scan of the head shows severe atrophy. UA positive for wbc's. ASSESSMENT: 1. Encephalopathy. 2. Psychosis with underlying dementia, probably made worse urinary tract infection, pretty severe atrophy. The patient has abnormal behavior, possibility of frontotemporal dementia along with aphasia. PLAN: Continue present antipsychotic medication, antibiotics. JOB# [id number]
--- NOTE | 2018-09-20 03:41 | Progress Notes ---
DATE: IDENTIFICATION: An 88-year-old female. SUBJECTIVE: The patient is seen and examined. The patient is lying in the bed. No new event. Potassium reported low. PHYSICAL EXAMINATION: VITAL SIGNS: Temperature 98.3, pulse 70, respiratory rate 18, blood pressure 154/70. HEENT: No facial asymmetry. NECK: Supple, no JVD. HEART: Regular. LUNGS: Clear to auscultate. ABDOMEN: Soft. No guarding, no rigidity. Bowel sounds present. No palpable mass. EXTREMITIES: No edema. CLINICAL IMPRESSION: 1. Encephalopathy. 2. Urinary tract infection. 3. Dementia. 4. Osteoarthritis. 5. High risk for fall. 6. Degenerative joint disease. 7. Glaucoma. PLAN: 1. Replace potassium. 2. Nutritional support. 3. P.o. antibiotic. 4. General nursing care. 5. PT, OT. 6. Psych followup. 7. General nursing care. 8. Continue current treatment plan. 9. Care plan reviewed and discussed with staff. JOB# [id number]
[2018-09-20] MEDS: Lactobacillus Rhamnosus GG 15 Billion CFU CAP.SPRINK PO SCH ×2 (08:23→16:41)
[2018-09-20] MEDS: Heparin Sod 5,000Units/ML 5,000 UNITS/ML VIAL SUBQ SCH (08:32)
[2018-09-20] MEDS: Polyvinyl Alcohol Ophth Soln 15 mL Bottle EACH EYE SCH ×2 (08:32→16:41)
[2018-09-20] MEDS: Gentamicin 0.3% Ophth Soln 5mL Bottle EACH EYE SCH ×2 (08:32→13:34)
--- NOTE | 2018-10-02 10:12 | Discharge Summary ---
DATE OF DISCHARGE: 09/20/2018 MEDICAL DISCHARGE SUMMARY PATIENT'S ID: An 88-year-old female. Date of transfer to [facility] is 09/20/2018. PRINCIPAL DIAGNOSES: 1. Altered mental status secondary to infectious encephalopathy. 2. Complicated urinary tract infection. 3. Dementia. 4. Degenerative joint disease. 5. Osteoarthritis. 6. Glaucoma. 7. Hypokalemia. 8. High risk for fall. 9. Psychotic disorder. 10. Debility. 11. Hypertension. BRIEF STATEMENT FOR THE REASON FOR ADMISSION: An 88-year-old female presented to Emergency Room for evaluation of increasing agitation and altered mental status. The patient was noted to have leukocytosis with urinary tract infection. The patient was advised to be admitted for further treatment. Please refer to my medical H and P for further information. HOSPITAL COURSE: The patient was admitted to Med/Surg floor where the patient was placed on IV antibiotic. The patient was seen by neurologist as well as psychiatrist. Further workup noted to have a complicated urinary tract infection. The patient was given appropriate antibiotic. Blood cultures were negative. Neurologist did agree that the patient's altered mental status was secondary to encephalopathy. The patient did have a significant improvement from her mental status though the patient still has psychotic behavior. For that, the patient was followed by Dr. Yang. He suggested that the patient should be [facility]. The patient was accepted and transferred to [facility] on 09/19/2018. The patient will be transfer to [facility] on 09/20/2018. The patient was followed by geriatric psychiatrist as well as myself. At the time of discharge, all of her medications were reconciled. [facility]# [id number]
== END 2018-09-20 17:39 | DRG 872 ==
LOC: ER 17:11 → MSI 21:55
PROVIDERS: ADMIT Internal Medicine; ATTEND Internal Medicine
DX: A41.9 Sepsis, unspecified organism (principal); G93.40 Encephalopathy, unspecified; N39.0 Urinary tract infection, site not specified; F03.91 Unspecified dementia, unspecified severity, with behavioral disturbance; E46 Unspecified protein-calorie malnutrition; Z68.1 Body mass index [BMI] 19.9 or less, adult; M19.90 Unspecified osteoarthritis, unspecified site; M81.0 Age-related osteoporosis without current pathological fracture; I10 Essential (primary) hypertension; G40.909 Epilepsy, unspecified, not intractable, without status epilepticus; H40.9 Unspecified glaucoma; F29 Unspecified psychosis not due to a substance or known physiological condition; Z91.81 History of falling; Z90.49 Acquired absence of other specified parts of digestive tract; Z90.710 Acquired absence of both cervix and uterus
CPT/HCPCS: 36415-UA; 70450-TC; 71045-TC; 80048-TC; 80053-TC; 80061-TC; 81001-TC; 82140-TC; 82948-90; 83735-TC; 84443-TC; 85025-TC; 86592-TC; 87086-90; 93005; 96374; J0696; J1200; J1630; J1644; J2060; Z7610

== ENCOUNTER 2018-09-20 17:39 | Inpatient (IN) | payer MEDICARE ==
[2018-09-20 19:20] VITALS: BP 137/65
[2018-09-20] MEDS ORDERED: Magnesium Hydroxide (MOM) 30 mL UDC PO PRN (20:40)
[2018-09-20] MEDS ORDERED: Non-Formulary Item 1 EA (Mirtazapine [Mirtazapine] 7.5 MG) PO SCH (21:00)
[2018-09-20] MEDS: Heparin Sod 5,000Units/ML 5,000 UNITS/ML VIAL SUBQ SCH ×2 (21:30→21:36)
[2018-09-20] MEDS: Gentamicin 0.3% Ophth Soln 5mL Bottle EACH EYE SCH (21:34)
--- NOTE | 2018-09-20 22:42 | Progress Notes ---
DATE: PSYCHIATRIC PROGRESS NOTE SUBJECTIVE: Chart was reviewed and the patient interviewed. Also discussed the patient's condition with the staff and reviewed records and labs. The patient is sleepy and she is still calm and quiet. The patient seems to be slightly groggy this morning. The patient also has difficulty waking up this morning. Blood pressure also is dropping and today, her blood pressure is low. Otherwise, the patient is compliant with taking her medications and no agitation. ASSESSMENT: The patient is less anxious and sleeping. TREATMENT PLAN: We will decrease her Risperdal to 0.25 mg at bedtime and also decrease Remeron to 7.5 mg at bedtime and continue to follow up. [facility]# [id number]
--- NOTE | 2018-09-21 03:56 | Progress Notes ---
DATE: 09/20/2018 SUBJECTIVE: The patient seen and examined. The patient is lying in the bed. The patient is nonverbal. Awaiting transfer to Geropsych Unit. PHYSICAL EXAMINATION: VITAL SIGNS: Temperature 96.5, pulse 66, respiratory rate 18, blood pressure 124/51. HEENT: No facial asymmetry. NECK: Supple, no JVD, no lymphadenopathy or thyromegaly. HEART: Both heart sounds are regular. CHEST AND LUNGS: Equal in expansion, no expiratory wheezing. ABDOMEN: Soft. EXTREMITIES: No edema. NEUROLOGIC: Alert and awake, trying to follow commands. Available MAR has been reviewed. CLINICAL IMPRESSION: 1. Complicated urinary tract infection. 2. Encephalopathy, improved. 3. Hypertension. 4. Dementia. 5. Degenerative joint disease. 6. High risk for fall. PLAN: The patient is stable for discharge to Geropsych Unit. I have switched patient's IV antibiotic to p.o. Cipro for now. The patient will be followed by myself. Case discussed with the patient's assigned nurse. JOB# [id number]
[2018-09-21] MEDS: Lactobacillus Rhamnosus GG 15 Billion CFU CAP.SPRINK PO SCH ×2 (08:30→16:47)
[2018-09-21] MEDS: Heparin Sod 5,000Units/ML 5,000 UNITS/ML VIAL SUBQ SCH ×2 (08:31→21:26)
[2018-09-21] MEDS: Polyvinyl Alcohol Ophth Soln 15 mL Bottle EACH EYE SCH ×2 (08:33→17:00)
[2018-09-21] MEDS: Gentamicin 0.3% Ophth Soln 5mL Bottle EACH EYE SCH ×3 (08:33→21:33)
[2018-09-21] MEDS ORDERED: risperiDONE 1 mg/mL 30 mL Bottle PO SCH (09:00)
[2018-09-21] MEDS ORDERED: Non-Formulary Item 1 EA (Cranberry Fruit [Cranberry] 450 MG) PO SCH (09:00)
[2018-09-21] MEDS ORDERED: ACETAMINOPHEN PO PRN (09:14)
[2018-09-21] MEDS ORDERED: Fleet Enema 135 mL RC PRN (09:14)
--- NOTE | 2018-09-21 09:45 | History & Physical ---
ADMIT DATE: 09/20/2018 PATIENT IDENTIFICATION: An 88-year-old female. CHIEF COMPLAINT: "I am okay." HISTORY OF PRESENT ILLNESS: An 88-year-old female admitted by me at Med/Surg floor for increasing confusion and agitation along with encephalopathy where the patient was diagnosed to have complicated urinary tract infection. The patient was treated and stabilized and the patient is now being transferred to [facility] for further treatment. PAST MEDICAL HISTORY: Remarkable for, 1. Hypertension. 2. Dementia. 3. DJD. 4. Depression. 5. Glaucoma. MEDICATIONS: At the time of transfer has been reviewed and reconciled appropriately. ALLERGIES: THE PATIENT IS ALLERGIC TO CODEINE AND DEPAKOTE. SOCIAL HISTORY: She is a resident of care home. No smoking, alcohol or drug use. FAMILY MEDICAL HISTORY: Negative for diabetes and hypertension. REVIEW OF SYSTEMS: Unable to get meaningful history from the patient due to fluctuating mental status. PHYSICAL EXAMINATION: GENERAL: The patient is alert, awake, lying in the bed without any acute distress. VITAL SIGNS: Temperature 97.6, pulse is 74, respiratory rate 18, blood pressure is 146/80. SKIN: Warm to touch. Adequate skin turgor. HEENT: Normocephalic, atraumatic. Extraocular muscles are intact. Bilateral conjunctival congestion noted. Tongue was pink and coated. NECK: Supple, no JVD, no hepatojugular reflex. No lymphadenopathy, thyromegaly, or carotid bruit. HEART: Both heart sounds are regular. Grade 2/6 systolic murmur noted. CHEST AND LUNGS: Equal in expansion, no expiratory wheezing. ABDOMEN: Soft. No guarding, no rigidity. Bowel sounds present. No palpable mass. EXTREMITIES: No edema, no cyanosis. Diffuse osteoarthritic changes involving upper and lower extremities. NEUROLOGIC: Alert, awake, trying to follow commands, moving upper and lower extremity without any difficulty, some degree of spasticity noted. AVAILABLE DIAGNOSTIC DATA: Has been reviewed. CLINICAL IMPRESSION: 1. Psychiatric disorder. 2. Dementia. 3. Bilateral conjunctivitis. 4. Urinary tract infection. 5. Hypertension. 6. Dementia. 7. Osteoporosis. 8. Degenerative joint disease. 9. Fall risk. PLAN: 1. Continue Cipro for 5 days for UTI. 2. Gentamicin eyedrops for her conjunctivitis until it clears for at least 5 days. 3. Antihypertensive medicine. 4. Fall precautions. 5. Nutritional support. 6. General nursing care. 7. Appropriate home medicine reconciliation. 8. We will continue to follow this patient during the stay in the hospital. 9. Care plan reviewed and discussed with staff. JOB# [id number]
[2018-09-22] MEDS: Lactobacillus Rhamnosus GG 15 Billion CFU CAP.SPRINK PO SCH ×2 (08:39→16:24)
[2018-09-22] MEDS: Heparin Sod 5,000Units/ML 5,000 UNITS/ML VIAL SUBQ SCH ×2 (08:40→21:06)
[2018-09-22] MEDS: Polyvinyl Alcohol Ophth Soln 15 mL Bottle EACH EYE SCH ×2 (08:41→16:24)
[2018-09-22] MEDS: Gentamicin 0.3% Ophth Soln 5mL Bottle EACH EYE SCH ×3 (08:41→21:06)
[2018-09-22] MEDS: risperiDONE 1 mg/mL 30 mL Bottle PO SCH ×2 (08:42→16:24)
[2018-09-22] MEDS ORDERED: Probiotic Screen MC PRN (16:31)
--- NOTE | 2018-09-22 16:35 | Psychiatric Evaluation ---
DATE OF SERVICE: PSYCHIATRIC INITIAL EVALUATION AND MENTAL STATUS EXAM AGE: 88. SEX: Female. PHYSICIAN: Dr. Vallecillo. CHIEF COMPLAINT: Agitation and that shouting behavior. HISTORY OF PRESENT ILLNESS: The patient is an 88-year-old female who was transferred from [facility] because of increased agitation and shouting behavior. The patient has been increasingly irritable and increasingly agitated. The patient also has been having difficulty communication and has been not able to follow up with the staff directions. She also has been easily irritable and angry mood. PAST PSYCHIATRIC HISTORY: The patient has history of dementia as well as depression with psychosis. PAST MEDICAL HISTORY: The patient has hypertension and degenerative joint disease and glaucoma. SOCIAL HISTORY: The patient lives in a mcc. No known alcohol or drug use. No known legal issues or abuse issues. ALLERGIES: No known allergies. MENTAL STATUS EXAMINATION: The patient appears her stated age. Anxious. Irritable mood. Actively hallucinating and talking to herself. Disorganized thoughts. The patient did not answer question regarding hallucinations or delusions, but seems to be preoccupied. She did not answer question regarding suicide or homicide. The patient is alert and oriented to situation, place and person. Intact impaired, immediate, and recent memory, but intact remote memory. Poor insight and poor judgment. ASSESSMENT: PRIMARY DIAGNOSIS: Unspecified psychosis. SECONDARY DIAGNOSES: Dementia with psychosis and behavioral disturbances. TREATMENT PLAN: We will monitor the patient's condition and medications closely. We will start individual as well as milieu psychotherapy. We will adjust psychotropic medications and the patient is taking Risperdal 0.5 mg at bedtime and we will increase it to 0.5 mg twice a day and continue to follow up. ESTIMATED LENGTH OF STAY: 5-7 days. THE PATIENT'S STRENGTHS AND WEAKNESSES: The patient's strength is not clear at this time. Weakness is her ineffective coping and her agitation. AFTER DISCHARGE PLAN: Outpatient treatment and followup will continue and the patient will return to her [facility]. [facility]# [id number]
--- NOTE | 2018-09-22 22:09 | Progress Notes ---
DATE: SUBJECTIVE: Chart reviewed and the patient interviewed. Also discussed the patient's condition with the staff and reviewed records and labs. The patient is still confused and she is still rambling and unable to carry on coherent conversation. The patient also is still suspicious and paranoid. She is still hyperverbal, yelling, and screaming for no reason. The patient also still seems to be preoccupied and responding to stimuli. Otherwise, the patient is compliant with taking her medications and no side effects of medications. ASSESSMENT: The patient is still psychotic and is still agitated. TREATMENT PLAN: Continue to monitor her behavior and her condition closely. Also, we will increase Risperdal to 0.5 mg twice a day and continue to work on her behavior and her condition closely. JOB# [id number]
[2018-09-23] MEDS: Heparin Sod 5,000Units/ML 5,000 UNITS/ML VIAL SUBQ SCH ×2 (08:37→21:15)
[2018-09-23] MEDS: Gentamicin 0.3% Ophth Soln 5mL Bottle EACH EYE SCH ×3 (08:37→21:14)
[2018-09-23] MEDS: Lactobacillus Rhamnosus GG 15 Billion CFU CAP.SPRINK PO SCH ×2 (08:37→16:41)
[2018-09-23] MEDS: Polyvinyl Alcohol Ophth Soln 15 mL Bottle EACH EYE SCH ×2 (08:38→16:41)
[2018-09-23] MEDS: risperiDONE 1 mg/mL 30 mL Bottle PO SCH ×2 (08:38→16:41)
--- NOTE | 2018-09-24 01:32 | Progress Notes ---
DATE: 09/23/2018 SUBJECTIVE: Chart was reviewed and the patient interviewed. Also discussed the patient's condition with the staff and reviewed records and labs. The patient is still demanding and she is still confused. The patient also is having episodes of yelling for no apparent reason. The patient also has refused to take her medications at times, but most of the time the patient is compliant with taking her Risperdal, Remeron, Aricept, and gabapentin. ASSESSMENT: The patient is still agitated and needs close monitoring. TREATMENT PLAN: Continue monitoring her behavior and her condition closely. Also, continue adjusting psychotropic medications and followup. [facility]# [id number]
[2018-09-24] MEDS: Gentamicin 0.3% Ophth Soln 5mL Bottle EACH EYE SCH ×3 (12:15→21:38)
[2018-09-24] MEDS: Lactobacillus Rhamnosus GG 15 Billion CFU CAP.SPRINK PO SCH ×2 (12:15→16:41)
[2018-09-24] MEDS: risperiDONE 1 mg/mL 30 mL Bottle PO SCH ×2 (12:16→16:41)
[2018-09-24] MEDS: Polyvinyl Alcohol Ophth Soln 15 mL Bottle EACH EYE SCH ×2 (12:16→16:41)
--- NOTE | 2018-09-24 21:05 | Progress Notes ---
DATE: 09/24/2018 IDENTIFICATION: An 88-year-old female. SUBJECTIVE: The patient seen and examined. The patient is lying in the bed. No new event. OJBETIVE: VITAL SIGNS: Temperature 97.6, pulse 56, respiratory rate 18, blood pressure 96/56. Medication admission record has been reviewed. HEENT: No facial asymmetry. NECK: Supple, no JVD. HEART: Regular. LUNGS: Clear. ABDOMEN: Soft, no guarding or rigidity. Bowel sounds present. No palpable mass. EXTREMITIES: No edema. CLINICAL IMPRESSION: 1. Psychotic disorder. 2. Conjunctivitis. 3. Glaucoma. 4. Hypertension. 5. Degenerative joint disease. 6. Complicated urinary tract infection. 7. Dementia. 8. Fall risk. PLAN: 1. Discontinue antibiotic for tomorrow. 2. Continue eyedrops for 3 more days. 3. PT. 4. Psych medication. 5. Psych followup. 6. General nursing care. 7. Discontinue heparin in the view of her high risk for fall. 8. Monitor blood pressure. 9. Nutritional support. 10. Care plan reviewed and discussed with staff. JOB# [id number]
--- NOTE | 2018-09-24 22:42 | Progress Notes ---
DATE: 09/24/2018 SUBJECTIVE: Chart reviewed and the patient interviewed. Also discussed the patient's condition with the staff and reviewed records and labs. The patient is still confused and still have episodes of yelling and screaming for no reason. The patient also is still paranoid and suspicious and is demanding at time. She also is still in angry mood. Otherwise, the patient today seems to be more compliant with taking her medications with no side effects. ASSESSMENT: The patient is still psychotic and confused. TREATMENT PLAN: Continue to monitor her behavior and her condition closely. Also continue adjusting psychotropic medications and followup. JOB# [id number]
[2018-09-25] MEDS: Polyvinyl Alcohol Ophth Soln 15 mL Bottle EACH EYE SCH ×2 (09:07→16:08)
[2018-09-25] MEDS: Gentamicin 0.3% Ophth Soln 5mL Bottle EACH EYE SCH ×3 (09:07→21:17)
[2018-09-25] MEDS: Lactobacillus Rhamnosus GG 15 Billion CFU CAP.SPRINK PO SCH ×2 (09:07→16:08)
[2018-09-25] MEDS: risperiDONE 1 mg/mL 30 mL Bottle PO SCH ×2 (09:08→16:08)
--- NOTE | 2018-09-25 21:50 | Progress Notes ---
DATE: 09/25/2018 PSYCHIATRIC PROGRESS NOTE SUBJECTIVE: Chart was reviewed and the patient interviewed. Also discussed the patient's condition with the staff and reviewed records and labs. The patient continued to be psychotic and actively hallucinating. The patient also is still talking to herself and having episodes of yelling, saying "mom," repeatedly. She also seems to be preoccupied. The patient also is still reluctant encouragement to take her medications. The patient needs a lot of encouragement from staff to take her medications. ASSESSMENT: The patient is still psychotic. TREATMENT PLAN: Continue monitoring her behavior and her condition closely. Also, continue working on her irritability and psychosis. Continue to follow up. [facility]# [id number]
[2018-09-26] MEDS: risperiDONE 1 mg/mL 30 mL Bottle PO SCH ×2 (09:45→18:02)
[2018-09-26] MEDS: Polyvinyl Alcohol Ophth Soln 15 mL Bottle EACH EYE SCH ×2 (13:12→18:02)
[2018-09-26] MEDS: Lactobacillus Rhamnosus GG 15 Billion CFU CAP.SPRINK PO SCH ×2 (13:12→18:02)
[2018-09-26] MEDS: Gentamicin 0.3% Ophth Soln 5mL Bottle EACH EYE SCH ×2 (13:12→20:54)
--- NOTE | 2018-09-26 22:47 | Progress Notes ---
DATE: 09/26/2018 The patient coming in from [facility] with increased agitation, shouting behaviors, increasingly irritable, agitated, difficulty with communication, history of dementia as well, Dr. Vallecillo seeing the patient over the past few days, still psychotic, hallucinating, talking to self, episodes of yelling, preoccupied. The patient is refusing to speak with me today mostly withdrawn, keeping to herself, sleeping, but arousable, but not interacting. Staff noting she is pretty confused, AO to name only, needing a lot of prompting, redirection, ongoing concerns about impulsivity, safety. We will continue to monitor on an inpatient basis. Social service is in touch with daughter. JOB# [id number]
[2018-09-27] MEDS: Lactobacillus Rhamnosus GG 15 Billion CFU CAP.SPRINK PO SCH ×2 (09:05→17:45)
[2018-09-27] MEDS: Gentamicin 0.3% Ophth Soln 5mL Bottle EACH EYE SCH ×3 (09:06→21:17)
[2018-09-27] MEDS: Polyvinyl Alcohol Ophth Soln 15 mL Bottle EACH EYE SCH ×2 (09:06→17:46)
[2018-09-27] MEDS: risperiDONE 1 mg/mL 30 mL Bottle PO SCH ×2 (09:07→17:46)
--- NOTE | 2018-09-27 10:11 | Progress Notes ---
DATE: 09/27/2018 SUBJECTIVE: Chart was reviewed and the patient interviewed. Also discussed the patient's condition with the staff and reviewed records and labs. The patient continued to be confused. The patient also still needs redirections and the patient is still nonsensical and his thought processes are disorganized. The patient also still has episodes of yelling, "mom," but seems to be less than before. Otherwise, the patient is compliant with taking her medications with no side effects. ASSESSMENT: The patient is still psychotic and needs lot of redirections. TREATMENT PLAN: Continue Risperdal 0.25 mg twice a day and Aricept 5 mg at bedtime and Remeron 7.5 mg at bedtime. Also, continue to work on her severe irritability and anxiety and continue to follow up. [facility]# [id number]
[2018-09-28] MEDS: Lactobacillus Rhamnosus GG 15 Billion CFU CAP.SPRINK PO SCH ×2 (08:26→17:59)
[2018-09-28] MEDS: Polyvinyl Alcohol Ophth Soln 15 mL Bottle EACH EYE SCH ×2 (08:28→18:00)
[2018-09-28] MEDS: risperiDONE 1 mg/mL 30 mL Bottle PO SCH ×2 (08:29→18:00)
--- NOTE | 2018-09-28 18:59 | Progress Notes ---
DATE: SUBJECTIVE: Chart reviewed and the patient interviewed. Also discussed the patient's condition with the staff and reviewed records and labs. The patient is calmer today and she is not screaming and yelling like before. The patient also seems to be slightly groggy and sleepy. She also seems to have less irritability and slightly easier to redirect her. The patient also continued to comply with taking her medications with no side effects of medications. ASSESSMENT: The patient is less irritable and less agitated. TREATMENT PLAN: We will continue to monitor her behavior and her condition closely. Also, we will decrease Seroquel to 0.25 mg twice a day since the patient seems to be slightly sedated today and we will continue to adjust psychotropic medications and work on her behavior. JOB# [id number]
[2018-09-29] MEDS: risperiDONE 1 mg/mL 30 mL Bottle PO SCH ×2 (09:08→16:24)
[2018-09-29] MEDS: Lactobacillus Rhamnosus GG 15 Billion CFU CAP.SPRINK PO SCH ×2 (09:08→16:23)
[2018-09-29] MEDS: Polyvinyl Alcohol Ophth Soln 15 mL Bottle EACH EYE SCH ×2 (09:08→16:23)
--- NOTE | 2018-09-30 04:09 | Progress Notes ---
DATE: SUBJECTIVE: Chart reviewed and the patient interviewed. Also discussed the patient's condition with the staff and reviewed records and labs. The patient is still in angry and in irritable mood. The patient was yelling and screaming for no apparent reason and kept mentioning different names and confused and asking where she is at and continued yelling and screaming. Continue anxious and irritability. She also continued to be restless and continued to be unable to follow any of directions. ASSESSMENT: The patient is still agitated and irritable. TREATMENT PLAN: We will continue to monitor behavior and continue to adjust psychotropic medications and we will increase Risperdal to 0.5 mg twice a day and continue to follow up. [facility]# [id number]
[2018-09-30] MEDS: Polyvinyl Alcohol Ophth Soln 15 mL Bottle EACH EYE SCH ×2 (08:00→16:41)
[2018-09-30] MEDS: Lactobacillus Rhamnosus GG 15 Billion CFU CAP.SPRINK PO SCH ×2 (08:00→16:42)
[2018-09-30] MEDS: risperiDONE 1 mg/mL 30 mL Bottle PO SCH ×2 (08:00→16:41)
--- NOTE | 2018-09-30 22:42 | Progress Notes ---
DATE: 09/30/2018 An 88-year-old female who was transferred from [facility] with increased agitation, shouting behaviors, irritable, agitated. [id number], the patient refusing to speak with me this morning. Remains unruly, still agitated, upset. Dr. Vallecillo noting that she is still very angry, yelling, screaming at times, anxious, not able to really be cared for at a lower level of care and still unruly. Medications were noted. ASSESSMENT: The patient is still unruly, agitated, still acute, ongoing behavioral disturbances. PLAN: We will continue to monitor and titrate medications. JOB# [id number]
[2018-10-01] MEDS: Polyvinyl Alcohol Ophth Soln 15 mL Bottle EACH EYE SCH ×2 (09:46→16:05)
[2018-10-01] MEDS: risperiDONE 1 mg/mL 30 mL Bottle PO SCH ×2 (09:46→16:05)
[2018-10-01] MEDS: Lactobacillus Rhamnosus GG 15 Billion CFU CAP.SPRINK PO SCH ×2 (09:46→16:05)
--- NOTE | 2018-10-01 19:38 | Progress Notes ---
DATE: SUBJECTIVE: The patient seen on 10/01/2018. The patient is coming in for starting behaviors, agitation. On [id number], this morning, the patient slept fairly well with electro mechanical technician awakenings, amenable, talking to me, but she is pretty confused, disoriented, just asking me over and over, "why I am here, why am I here." She knows her name. She does not know where she is or the date or the year, currently in a [facility] chair, trying to get up at times, yelling and screaming intermittently poor orientation and some agitation. ASSESSMENT: Ongoing behavioural disturbances, but very confused on exam, disoriented. Currently on low dose Risperdal, Remeron. We will await study. She is also on Aricept. She may benefit from dosing of Namenda. We will continue to monitor. JOB# [id number]
--- NOTE | 2018-10-02 00:05 | Progress Notes ---
DATE: 10/01/2018 DATE OF SERVICE: 10/01/2018 SUBJECTIVE: The patient seen and examined. The patient is lying in the bed. The patient does not provide a meaningful history. The patient discussed with nursing staff about their concerns. PHYSICAL EXAMINATION: VITAL SIGNS: Temperature 98.2, pulse 74, respiratory rate 18, blood pressure 110/66. HEENT: Poor dentition. Bilateral conjunctival congestion decreased. NECK: Supple, no JVD. HEART: Regular. LUNGS: Clear to auscultate. ABDOMEN: Soft, no guarding or rigidity. Bowel sounds present. No palpable mass. EXTREMITIES: No edema. CLINICAL IMPRESSION: 1. Alzheimer dementia. 2. Hypertension. 3. Degenerative joint disease. 4. Osteoporosis. 5. Psychotic disorder. 6. Status post completed antibiotic for urinary tract infection. PLAN: 1. Psych medication. 2. Dementia medication. 3. Fall precautions. 4. Monitor blood pressure. 5. Antihypertensive medicine. 6. Eyedrops for glaucoma. 7. Nutritional support. 8. General nursing care. 9. Care plan reviewed and discussed with staff. JOB# [id number]
[2018-10-02] MEDS: Lactobacillus Rhamnosus GG 15 Billion CFU CAP.SPRINK PO SCH ×2 (10:03→17:13)
[2018-10-02] MEDS: Polyvinyl Alcohol Ophth Soln 15 mL Bottle EACH EYE SCH ×2 (10:04→17:13)
[2018-10-02] MEDS: risperiDONE 1 mg/mL 30 mL Bottle PO SCH ×2 (10:04→17:13)
--- NOTE | 2018-10-03 01:52 | Progress Notes ---
DATE: SUBJECTIVE: Chart was reviewed and the patient interviewed. Also discussed the patient's condition with the staff and reviewed records and labs. The patient is still confused and still has disorganized thoughts. She also is still yelling and screaming and severely anxious. The patient also still needs redirections, but she is still resisting care and she gets aggressive during helping her with her ADLs. Otherwise, the patient is compliant with taking medications with no side effects of medications. ASSESSMENT: The patient is still psychotic and aggressive. PLAN: We will continue monitoring her behavior closely. Also, we will increase the Risperdal to 1 mg twice a day and will continue to follow up. [facility]# [id number]
[2018-10-03] MEDS: Lactobacillus Rhamnosus GG 15 Billion CFU CAP.SPRINK PO SCH ×2 (08:57→16:29)
[2018-10-03] MEDS: risperiDONE 1 mg/mL 30 mL Bottle PO SCH ×2 (10:04→17:55)
[2018-10-03] MEDS: Polyvinyl Alcohol Ophth Soln 15 mL Bottle EACH EYE SCH ×2 (10:04→17:55)
--- NOTE | 2018-10-04 00:04 | Progress Notes ---
DATE: 10/03/2018 IDENTIFICATION: An 88-year-old female. SUBJECTIVE: The patient seen and examined. The patient is lying in the bed. No new event. The patient has been sitting in the chair. No new complaint. PHYSICAL EXAMINATION: VITAL SIGNS: Temperature 97.2, pulse 81, respiratory rate is 18, blood pressure 134/55. HEENT: No facial asymmetry. Tongue more pink and coated. NECK: Supple, no JVD. HEART: Regular. CHEST AND LUNGS: Equal in expansion, no expiratory wheezing. ABDOMEN: Soft. No guarding, no rigidity. Bowel sounds present. No palpable mass. EXTREMITIES: No edema. CLINICAL IMPRESSION: 1. Depression. 2. Dementia. 3. Hypertension. 4. Glaucoma. 5. Degenerative joint disease. 6. Status post complete treatment for conjunctivitis. 7. Dry eyes. 8. Fall risk. 9. Osteoporosis. PLAN: 1. Artificial tear drops. 2. Aricept. 3. Hydrochlorothiazide. 4. Eye drops for glaucoma. 5. Cozaar for hypertension. 6. Dementia medication. 7. Symptoms management. 8. Psych medication and psych followup. 9. Fall precautions. 10. Nutritional support. 11. Care plan reviewed and discussed with staff. JOB# [id number]
--- NOTE | 2018-10-04 02:24 | Progress Notes ---
DATE: 10/03/2018 The patient continues to be somewhat confused, disorganized and continues to have episodes of yelling and screaming. She continues to be at times anxious, but in general, she is progressing better. She is demented, confused, and continues to need redirection. No side effects of the medication, no sedation, no nausea and she is on Aricept 10 mg at bedtime and Risperdal that was increased yesterday to 1 mg twice a day with no side effects, no sedation or nausea, no extrapyramidal symptoms. We will continue to work with the patient in group therapy, milieu therapy, adjust the medication as needed. JOB# [id number]
[2018-10-04] MEDS: Lactobacillus Rhamnosus GG 15 Billion CFU CAP.SPRINK PO SCH (09:18)
[2018-10-04] MEDS: Polyvinyl Alcohol Ophth Soln 15 mL Bottle EACH EYE SCH (09:36)
--- NOTE | 2018-10-04 23:03 | Progress Notes ---
DATE: 10/04/[address] Vallecillo. Case was discussed with staff of the patient with recently plans and goals. The patient apparently is much calmer according to staff, she is doing much better. She is calm, cooperative. No acting out behavior in the last 2 days since the medication was increased. No sedation, no nausea, no extrapyramidal symptoms. The patient will be going to [facility], which is a nursing facility. So at this point, the patient continue to be at a lesser level of care since she is showing progress and the patient will be discharged to a lesser level of care. JOB# [id number]
--- NOTE | 2018-10-06 07:26 | Discharge Summary ---
DATE OF DISCHARGE: 10/04/2018 PATIENT'S AGE: 88-year-old. SEX: Female. PHYSICIAN: Ten Vallecillo MD, MPH FINAL DIAGNOSIS: PRIMARY DIAGNOSIS: Unspecified psychosis. SECONDARY DIAGNOSIS: Dementia, moderate to severe, with psychotic features and behavioral disturbances. REASON FOR HOSPITALIZATION: The patient was admitted to the hospital because of increased agitation and because of irritability and inability to follow directions in the intermediate. HOSPITAL COURSE: The patient continued to be severely irritable and agitated. The patient also was uncooperative with treatment and uncooperative with taking her medications. The patient needed lots of redirections. She was aggressive with the staff and she was in angry and in irritable mood. The patient was in the beginning refusing to take Risperdal, but later on the patient was taking Risperdal in a liquid form. Gradually, the patient's affect was brighter and the patient was calmer and not as agitated. The patient also was easier to redirect her. She also was interacting more. The patient denies any intention to harm herself or others. The patient was discharged from the hospital. Physical exam of the patient showed no major medical issues or major medical problems. AFTER DISCHARGE PLANS: The patient discharged from the hospital back to the intermediate with plans to follow her up there. EXPECTED OUTCOME AFTER DISCHARGE: Fair if the patient continued to take psychotropic medications and follow up with discharge plans. [facility]# [id number]
== END 2018-10-04 15:50 | DRG 885 ==
LOC: GERO 17:39
PROVIDERS: ADMIT Psychiatry & Neurology Psychiatry; ATTEND Psychiatry & Neurology Psychiatry
DX: F29 Unspecified psychosis not due to a substance or known physiological condition (principal); N39.0 Urinary tract infection, site not specified; G93.40 Encephalopathy, unspecified; F02.81 Dementia in other diseases classified elsewhere, unspecified severity, with behavioral disturbance; G30.9 Alzheimer's disease, unspecified; H10.9 Unspecified conjunctivitis; M19.90 Unspecified osteoarthritis, unspecified site; F41.9 Anxiety disorder, unspecified; I10 Essential (primary) hypertension; H40.9 Unspecified glaucoma; M81.0 Age-related osteoporosis without current pathological fracture; F32.9 Major depressive disorder, single episode, unspecified; Z91.81 History of falling
CPT/HCPCS: J1644; Z7610

== ENCOUNTER 2018-10-27 20:49 | Inpatient (IN) | payer MEDICARE, MEDICAID ==
--- NOTE | 2018-10-27 21:24 | ED Physician Chart ---
ED Chief Complaint/HPI - Patient Information Date Seen:: 10/27/18 Time Seen:: 21:20 Chief Complaint:: agitation History of Present Illness:: 88 yr old female with hx of dementia psychosis here from intermediate with agitation and hx of continous yelling on resperidol hx of utis and daughter thinks she may have one againg since she is cofused sleepy and not her self Allergies:: Allergies Allergy/AdvReac Type Severity Reaction Status Date / Time codeine Allergy Verified 09/14/18 17:24 divalproex sodium Allergy Verified 09/14/18 17:23 [From Depakote] Sulfa (Sulfonamide Allergy Verified 09/14/18 17:25 Antibiotics) sulfamethoxazole Allergy Verified 09/14/18 17:23 [From Bactrim] trimethoprim [From Bactrim] Allergy Verified 09/14/18 17:23 sulfate Allergy Uncoded 09/14/18 17:24 Vitals:: Vital Signs - 8 hr 10/27/18 20:50 Temp 100.9 F HR 99 RR 20 BP 101/54 O2 Sat % 95 ED Review of Systems - Review of Systems Skin: No skin lesions Head: No headache Eyes: No loss of vision ENT: Other (bad hearing) Neck: No neck pain Cardio Vascular: No chest pain Pulmonary: No SOB GI: No vomiting, No diarrhea G/U: No dysuria Endocrine: No polyuria Psychiatric: Prior psych history ED Past Medical History - Past Medical History Past Medical History: Other (see nurses notes) Family Medical History - Family Member Mother History Unknown: Yes ED Physical Exam - Physical Examination General/Constitutional: Awake Head: Atraumatic Eyes: Lids, conjuctiva normal Skin: Nl inspection ENMT: External ears, nose nl Neck: Nontender Respiratory: Nl effort/Exclusion Cardio Vascular: RRR GI: No tenderness/rebounding/guarding Extremities: No tenderness or effusion ED Assessment - Assessment General Assessment: psychosis depression ED Septic Shock - . Is Septic Shock (SBP<90, OR Lactate>4 mmol\L) present?: No - <6hrs of presentation: Vital Signs: Vital Signs - 8 hr 10/27/18 20:50 Temp 100.9 F HR 99 RR 20 BP 101/54 O2 Sat % 95 ED Reassessment (Disposition) - Reassessment Reassessment:: psychosi depression - Diagnosis Diagnosis:: as above - Patient Disposition Admitted to:: [facility] Condition at Disposition:: Stable
[2018-10-27 22:05] LABS: EOSINOPHILE ABSOLUTE 0.1 Th/cmm (0.1-0.4); MONOCYTE ABSOLUTE 0.2 Th/cmm (0.3-1.0); RED CELL DISTRIBUTION WIDTH 13.6 % (11.5-20.0); WHITE BLOOD COUNT 9.1 Th/cmm (4.8-10.8)
[2018-10-27 22:12] LABS: % BASOPHILS 0.5 % (0.0-2.0); % EOSINOPHILS 0.7 % (0.0-5.0); % LYMPHOCYTES 6.9 % (20.0-50.0); % MONOCYTES 2.3 % (2.0-10.0); % NEUTROPHILS 89.6 % (40.0-80.0); HEMATOCRIT 34.4 % (41.0-60); HEMOGLOBIN 11.5 gm/dL (12-16); LYMPHOCYTE ABSOLUTE 0.6 Th/cmm (1.5-3.0); MEAN CELL VOLUME 95.2 fl (81-100); MEAN CORPUSCULAR HEMOGLOBIN 31.9 pg (27.0-31.0); MEAN CORPUSCULAR HGB CONC 33.5 pg (28.0-36.0); NEUTROPHILE ABSOLUTE 8.2 Th/cmm (1.8-8.0); PLATELET COUNT 314 Th/cmm (150-400); RED BLOOD COUNT 3.62 Mil/cmm (3.80-5.20)
[2018-10-27] MEDS ORDERED: cefTRIAXone 1 GM in Sodium Chloride 0.9% 50 ML IV ONE (22:14)
[2018-10-27] MEDS ORDERED: Sodium Chloride 0.9% 1,000 ML IV ONE (22:15)
[2018-10-27 22:17] LABS: NEUTROPHILS 89.6 % (40-80)
[2018-10-27 22:18] LABS: EOSINOPHIL 0.7 % (0-5); LYMPHOCYTE 6.9 % (20-50); MONOCYTE 2.3 % (2-10)
[2018-10-27 23:11] LABS: ALB/GLOB RATIO 1.1 (1.0-1.8); ALBUMIN 3.3 gm/dL (3.7-5.3); ALKALINE PHOSPHATASE 122 U/L (34-104); ANION GAP 10.6 (7.0-16.0); BILIRUBIN,TOTAL 0.4 mg/dL (0.3-1.0); BUN - UREA NITROGEN 19 mg/dL (7-25); CALCIUM SERUM 9.2 mg/dL (8.6-10.3); CARBON DIOXIDE 28.3 mEq/L (21.0-31.0); CHLORIDE 101 mEq/L (98-107); CREATININE - SERUM 0.5 mg/dL (0.6-1.2); GLUCOSE 95 mg/dL (70-105); POTASSIUM SERUM 3.9 mEq/L (3.5-5.1); SGOT 22 U/L (13-39); SGPT/ALT 22 U/L (7-52); SODIUM SERUM 136 mEq/L (136-145); TOTAL PROTEIN,SERUM 6.4 gm/dL (6.0-8.3)
[2018-10-28 02:58] LABS: MEAN CELL VOLUME 94.8 fl (81-100); MEAN CORPUSCULAR HEMOGLOBIN 32.2 pg (27.0-31.0); MEAN CORPUSCULAR HGB CONC 33.9 pg (28.0-36.0); PLATELET COUNT 173 Th/cmm (150-400); RED BLOOD COUNT 2.16 Mil/cmm (3.80-5.20); RED CELL DISTRIBUTION WIDTH 13.6 % (11.5-20.0); WHITE BLOOD COUNT 4.5 Th/cmm (4.8-10.8)
[2018-10-28 03:06] LABS: AMYLASE SERUM 35 U/L (29-103); LIPASE 23 U/L (11-82)
[2018-10-28] MEDS ORDERED: Norepinephrine 4 mg/4mL Vial IV ONE (03:25)
[2018-10-28] MEDS ORDERED: Piperacillin Sodium/Tazobact 3.375 gm Vial IV ONE (04:53)
[2018-10-28] MEDS: D5-0.45NS 1,000 ML IV SCH ×3 (05:00→22:25)
[2018-10-28 06:07] VITALS: BP 122/46
[2018-10-28 06:33] LABS: ALB/GLOB RATIO 1.1 (1.0-1.8); ALKALINE PHOSPHATASE 110 U/L (34-104); ANION GAP 10.7 (7.0-16.0); BILIRUBIN,TOTAL 0.5 mg/dL (0.3-1.0); BUN - UREA NITROGEN 16 mg/dL (7-25); CALCIUM SERUM 8.3 mg/dL (8.6-10.3); CARBON DIOXIDE 22.9 mEq/L (21.0-31.0); CHLORIDE 106 mEq/L (98-107); CREATININE - SERUM 0.5 mg/dL (0.6-1.2); GLUCOSE 106 mg/dL (70-105); POTASSIUM SERUM 3.6 mEq/L (3.5-5.1); SGOT 19 U/L (13-39); SGPT/ALT 18 U/L (7-52); SODIUM SERUM 136 mEq/L (136-145); TOTAL PROTEIN,SERUM 5.7 gm/dL (6.0-8.3)
[2018-10-28] MEDS ORDERED: Piperacillin Sodium/Tazobact 2.25 gm Vial IV ONE (06:59)
[2018-10-28] MEDS ORDERED: Diatrizoate Meglumine/Diatri 30 mL Sol PO ONE (08:30)
--- NOTE | 2018-10-28 08:46 | Diagnostic Imaging Report ---
Portable chest x-ray HISTORY: Shortness of breath Compared with the prior exam of September 14, 2018, there is a severe scoliosis of the thoracolumbar spine. Accentuation of interstitial markings in the left lower lobe. However, no acute focal processes are seen. After scarring calcination seen in the aorta. IMPRESSION: 1. No definite acute pulmonary abnormalities
[2018-10-28 09:01] LABS: BAND NEUTROPHILE 0 % (0-10); LYMPHOCYTE 17 % (20-50); NEUTROPHILS 77 % (40-80)
[2018-10-28 09:02] LABS: BASOPHIL 0 % (0-3); EOSINOPHIL 2 % (0-5); MONOCYTE 4 % (2-10); PLATELET ESTIMATE ADEQUATE (NORMAL)
[2018-10-28 09:04] LABS: HEMATOCRIT 20.5 % (41.0-60)
--- NOTE | 2018-10-28 12:19 | Consultation ---
DATE OF CONSULTATION: 10/28/2018 PSYCHIATRIC CONSULT AGE: 88 SEX: Female. PHYSICIAN: Dr. Taylor. EXT JS DEVELOPER: Dr. Vallecillo. CHIEF COMPLAINT: Increased agitation and uncontrolled screaming. HISTORY OF PRESENT ILLNESS: The patient is an 88-year-old female who is living in [facility]. The patient was transferred to the hospital because of increased irritability and agitation and uncontrollable screaming for no reason. The patient has been feeling hopeless and helpless and has been yelling and screaming constantly for no reason. She also has not been ____ angry and in irritable mood. Also, hemoglobin dropped down to 7 and that is why the patient is in ICU. PAST PSYCHIATRIC HISTORY: The patient has a history of dementia and depression and psychosis. MEDICATIONS: The patient is taking Remeron, Risperdal, trazodone. SOCIAL HISTORY: The patient lives in [facility]. No known alcohol or drug use. MENTAL STATUS EXAM: The patient appears her stated age. Anxious. "Irritable mood." ____ referring to the mittens in her hand. The patient is irritable and is agitated and has difficulty following directions during my interview and seems to be severely paranoid. The patient denied suicidal or homicidal ideations. The patient is alert, but seems to be disoriented to time, place, person and situation. Impaired immediate and recent memory and her remote memory partially intact and she remembered her day and month, but not the year. ASSESSMENT: PRIMARY DIAGNOSIS: Unspecified psychosis. TREATMENT PLAN: We will continue to monitor her behavior and her condition closely. We will start individual as well as milieu therapy. We will also adjust psychotropic medications. The patient also is a candidate for Geropsych when medically cleared. Thanks to Dr. Taylor and we will follow up with you. JOB# [id number]
[2018-10-28] MEDS ORDERED: Fleet Enema 135 mL RC PRN (14:49)
[2018-10-28] MEDS ORDERED: ACETAMINOPHEN PO PRN (14:49)
--- NOTE | 2018-10-28 15:41 | History & Physical ---
ADMIT DATE: 10/28/2018 CHIEF COMPLAINT: Unable to obtain. HISTORY SOURCE: Reviewing the chart, talking to the Emergency Room MD. HISTORY OF PRESENT ILLNESS: An 88-year-old female with a history of Alzheimer's dementia, hypertension, DJD, glaucoma, depression, resides in a senior care, brought into the Emergency Room by paramedics after the patient was noted to have increasing agitation and aggressive behavior and disturbing to others. The patient was noted to have in the emergency room fever of 100.5 and hypotension. The patient was advised to be admitted in the medical floor. During her Emergency Room stay, the patient was extremely hypotensive, which required more than 2 liter of fluid along with Levophed drip. There was a question about urinary tract infection, but there was no evidence of urinary tract infection. The patient did have some dysphagia in senior care. The patient does not provide a meaningful history, so now patient being admitted to the hospital for further management. PAST MEDICAL HISTORY: Remarkable for: 1. Hypertension. 2. Dementia. 3. Degenerative joint disease. 4. Depression. 5. Glaucoma. MEDICATIONS: At the time of transfer has been reviewed and reconciled as well. ALLERGIES: THE PATIENT IS ALLERGIC TO CODEINE, DEPAKOTE AND SULFA. SOCIAL HISTORY: She is a resident of senior care. No smoking, alcohol or drug use. FAMILY HISTORY: Unavailable. REVIEW OF SYSTEMS: Unable to get meaningful history from the patient. PHYSICAL EXAMINATION: GENERAL: An 88-year-old, alert, awake, following simple command, not following any complex command, lying in the bed without any acute distress. VITAL SIGNS: Temperature at this time reported 98.6, pulse 80, respiratory rate is 18, blood pressure currently is 145/73, O2 sat of 99%. On arrival to Emergency Room, the patient's systolic blood pressure was 70. HEENT: Normocephalic, atraumatic. Extraocular muscles intact. Tongue was pink and coated. Absent upper and lower dentition noted. No facial asymmetry. NECK: Supple, no JVD, no hepatojugular reflex. No lymphadenopathy, thyromegaly, or carotid bruit. HEART: Both heart sounds are regular. Grade 2/6 systolic murmur noted. CHEST: Lung equal in expansion, no expiratory wheezing. ABDOMEN: Soft. No guarding, no rigidity. Liver and spleen palpable. No palpable mass. EXTREMITIES: No edema, no cyanosis. Diffuse osteoarthritic changes noted. Peripheral pulses are +1. NEUROLOGIC: Alert and awake, follows simple command. No facial asymmetry. Moving upper and lower extremities without any difficulty. AVAILABLE DIAGNOSTIC DATA: White count of 9.1, hemoglobin of 11.5 which subsequently came to 7.0, platelet count of 314. BUN and creatinine is 19 and 0.5, potassium 3.6, lactic acid 0.47, total bilirubin of 0.5, AST, ALT are 19 and 18, total protein 5.7, albumin 3, amylase and lipase of 25 and 30. Chest x-ray done on 10/28/2018 read by radiologist as no definite cardiopulmonary disease. CT scan of the abdomen and pelvis was requested, which is currently pending. CLINICAL IMPRESSION: 1. An 88-year-old resident of senior care, has significant psychiatric history, brought in to the Emergency Room for evaluation and management of increasing agitation and confusion. The patient was noted to have hypotension and fever on admission, which did require resuscitation with IV fluid and Levophed as well. The patient was now being admitted to ICU. Differential diagnosis of low-grade fever with hypotension with negative lactic acid level, needs to determine. Infectious etiology is always possible, though at the same time medication related as well as a cardiac etiology needs to ruled out. 2. Dementia. 3. Psychotic disorder exacerbation. 4. Hypertension by history. 5. Glaucoma. 6. Degenerative joint disease. 7. High risk for fall. PLAN: In the view of her symptomology, the patient is admitted to ICU though patient has remained hemodynamically stable. We will continue IV fluid for now. Discontinue Levophed drip. Continue to provide broad-spectrum antibiotic -- Zosyn considering patient may have healthcare-acquired infection either aspiration pneumonia or urinary tract infection though urinalysis is not supporting urinary tract infection. The patient may need further redo evaluation of urine and chest x-ray after aggressive hydration. The patient will be placed on appropriate home medication reconciliation. Blood cultures have been done. We will obtain psychiatric consult from Dr. Vallecillo and Infectious Disease consultation with Dr. Bhaskar Nicole for now. We will continue to monitor her vital signs and cardiac monitoring and we will give further recommendations once other lab data are available. I have discussed with the patient, assigned nurse about my treatment plan. JOB# [id number]
[2018-10-28] MEDS: Lactobacillus Rhamnosus GG 15 Billion CFU CAP.SPRINK PO SCH (17:10)
[2018-10-28] MEDS: Polyvinyl Alcohol Ophth Soln 15 mL Bottle EACH EYE SCH (17:10)
[2018-10-28 19:10] LABS: MEAN CELL VOLUME 92.1 fl (81-100); MEAN CORPUSCULAR HEMOGLOBIN 31.8 pg (27.0-31.0); MEAN CORPUSCULAR HGB CONC 34.6 pg (28.0-36.0); RED BLOOD COUNT 4.63 Mil/cmm (3.80-5.20); RED CELL DISTRIBUTION WIDTH 14.3 % (11.5-20.0)
[2018-10-28 19:11] LABS: WHITE BLOOD COUNT 9.2 Th/cmm (4.8-10.8)
[2018-10-28 19:12] LABS: HEMATOCRIT 42.7 % (41.0-60); HEMOGLOBIN 14.8 gm/dL (12-16); PLATELET COUNT 242 Th/cmm (150-400)
[2018-10-28 20:03] LABS: BAND NEUTROPHILE 3 % (0-10); NEUTROPHILS 80 % (40-80)
[2018-10-28 20:04] LABS: BASOPHIL 0 % (0-3); EOSINOPHIL 3 % (0-5); LYMPHOCYTE 12 % (20-50); MONOCYTE 2 % (2-10); PLATELET ESTIMATE ADEQUATE (NORMAL)
[2018-10-28] MEDS ORDERED: Non-Formulary Item 1 EA (Mirtazapine [Mirtazapine] 7.5 MG) PO SCH (21:00)
[2018-10-29 05:13] LABS: HEMATOCRIT 41.5 % (41.0-60); HEMOGLOBIN 13.9 gm/dL (12-16); MEAN CELL VOLUME 92.5 fl (81-100); MEAN CORPUSCULAR HEMOGLOBIN 30.9 pg (27.0-31.0); MEAN CORPUSCULAR HGB CONC 33.4 pg (28.0-36.0); PLATELET COUNT 228 Th/cmm (150-400); RED BLOOD COUNT 4.49 Mil/cmm (3.80-5.20); RED CELL DISTRIBUTION WIDTH 14.8 % (11.5-20.0); WHITE BLOOD COUNT 7.2 Th/cmm (4.8-10.8)
[2018-10-29 05:30] LABS: ALB/GLOB RATIO 1.1 (1.0-1.8); ALKALINE PHOSPHATASE 126 U/L (34-104); ANION GAP 9.1 (7.0-16.0); BILIRUBIN,TOTAL 0.7 mg/dL (0.3-1.0); BUN - UREA NITROGEN 9 mg/dL (7-25); CALCIUM SERUM 8.6 mg/dL (8.6-10.3); CARBON DIOXIDE 25.2 mEq/L (21.0-31.0); CHLORIDE 105 mEq/L (98-107); CREATININE - SERUM 0.4 mg/dL (0.6-1.2); GLUCOSE 96 mg/dL (70-105); MAGNESIUM 1.7 mg/dL (1.9-2.7); POTASSIUM SERUM 3.3 mEq/L (3.5-5.1); SGOT 25 U/L (13-39); SGPT/ALT 23 U/L (7-52); SODIUM SERUM 136 mEq/L (136-145); TOTAL PROTEIN,SERUM 5.7 gm/dL (6.0-8.3)
[2018-10-29 07:21] LABS: BAND NEUTROPHILE 0 % (0-10); BASOPHIL 0 % (0-3); EOSINOPHIL 2 % (0-5); LYMPHOCYTE 11 % (20-50); MONOCYTE 7 % (2-10); NEUTROPHILS 80 % (40-80); PLATELET ESTIMATE ADEQUATE (NORMAL)
[2018-10-29] MEDS: Lactobacillus Rhamnosus GG 15 Billion CFU CAP.SPRINK PO SCH ×2 (08:14→16:42)
[2018-10-29] MEDS: Polyvinyl Alcohol Ophth Soln 15 mL Bottle EACH EYE SCH ×2 (08:15→16:42)
--- NOTE | 2018-10-29 08:16 | Consultation ---
DATE OF CONSULTATION: INFECTIOUS DISEASE CONSULTATION REFERRING PHYSICIAN: Dr. Taylor. REASON FOR CONSULTATION: Suspect sepsis. HISTORY OF PRESENT ILLNESS: The patient is an 88-year-old female with a past medical history of dementia, hypertension, DJD, glaucoma, depression, [facility] from [facility] for increasing agitation and aggressive behavior and disturbing others. The patient was noted to have a temperature of 100.5 degrees Fahrenheit. The patient was started on Rocephin and vancomycin. Zosyn was added, later then discontinued today. The patient remains afebrile. Sepsis was suspected and ID consult was called for the antibiotic management. PAST MEDICAL HISTORY: Includes hypertension, dementia, DJD, depression, glaucoma and meningitis. ALLERGIES: THE PATIENT IS ALLERGIC TO DEPAKOTE AND SULFA. MEDICATIONS: As per medication reconciliation sheet. Antibiotic cordoba, the patient is on ____. SOCIAL HISTORY: The [facility] in a [facility]. No history of smoking, alcohol or drug use. REVIEW OF SYSTEMS: Unable to obtain. PHYSICAL EXAMINATION: GENERAL: The patient is comfortable, lying in bed, not in acute distress. HEENT: Head is normocephalic, atraumatic. Oral cavity moist, pink tongue. EYES: No pallor, no icterus. Pupils PERRLA, EOMI. NECK: Supple, no JVD, no carotid bruit. Trachea in midline. CHEST: Bilateral breath sounds. No crackles or wheezing. HEART: S1, S2 within normal limits. Regular rhythm. No murmur, no gallop. ABDOMEN: Soft, nontender, nondistended. Bowel sounds present. EXTREMITIES: No cyanosis, no clubbing, no edema. NEUROLOGIC: Alert and awake. LABORATORY DATA: Current lab shows WBC count is 9200, hemoglobin 14.8, hematocrit 42.5, platelets are 242,000, neutrophil is pending. Sodium 136, potassium 3.6, chloride 106, bicarbonate is 30.6. Sodium 136, potassium 3.6, chloride 106, bicarbonate is 22.9, BUN is 16, creatinine 0.5, glucose is 106. LFTs reviewed. Blood cultures negative. IMPRESSION: 1. Hypertension, improved. 2. Fever, improved. 3. Dementia. 4. Degenerative joint disease. 5. Depression. 6. Glaucoma. RECOMMENDATIONS: We will continue same treatment. The patient is off antibiotic, but if the patient develops fever or the patient's condition deteriorates, may resume the antibiotic including Zosyn. JOB# [id number]
--- NOTE | 2018-10-29 09:30 | Diagnostic Imaging Report ---
CT scan of the chest without intravenous contrast HISTORY: Shortness of breath Total DLP equals 150 CTDI equals 4.7 Axial sections were obtained from a level above the clavicles down to level below the diaphragm. There is a severe scoliosis of the thoracolumbar spine. Evaluation of the vascular and hilar structures limited due to the absence of intravenous contrast. There are small bilateral pleural effusions. No definite focal pulmonary parenchymal processes. The heart size appears generous. No obvious abnormal mediastinal or hilar masses. IMPRESSION: 1. Small bilateral pleural effusions. No definite focal pulmonary parenchymal processes. 2. Somewhat generous heart size 3. Limited evaluation of the vascular and hilar structures due to the absence of intravenous contrast.
--- NOTE | 2018-10-29 09:37 | Diagnostic Imaging Report ---
CT scan abdomen and pelvis with and without intravenous contrast. HISTORY gastrointestinal bleeding Total DLP equals 500 CTDI equals 11.0 Axial sections were obtained from the xiphoid process down to the pubic symphysis following gestation which is contrast. Limited sections through the lower chest demonstrate small bilateral pleural effusions (left greater than right). There is a severe scoliosis. No focal hepatic lesions are seen. The spleen appears normal. There is very limited/suboptimal delineation of the margins of the stomach and proximal small bowel as the patient was unable to tolerate sufficient oral/bowel contrast. Limited intra-abdominal fat. Margins of the pancreas are not well delineated. No focal renal lesions. No hydronephrosis. Atherosclerotic calcification seen. The exam of the pelvis is somewhat limited due to artifact associated with surgical hardware about the right hip. Mildly distended stool-filled and contrast-filled large bowel noted. There is a small amount of what appears to be loculated free fluid in the right lower pelvis. Etiology uncertain. Clinical correlation is needed. IMPRESSION: 1. Very limited exam as the patient was unable to tolerate sufficient oral/bowel contrast. Poor delineation of the stomach and proximal small bowel. 2. Small amount of free fluid within the right lower pelvis. Etiology uncertain. Clinical correlation is needed 3. No free intraperitoneal air. 4. Small bilateral pleural effusions 5. Severe scoliosis
[2018-10-29] MEDS: D5-0.45NS 1,000 ML IV SCH (13:45)
--- NOTE | 2018-10-29 16:36 | Progress Notes ---
DATE: IDENTIFICATION: An 88-year-old female. SUBJECTIVE: The patient is seen and examined. The patient is lying in the bed. The patient remained hemodynamically stable. Blood cultures are so far negative. Hemoglobin is reported 13.9. The patient's potassium is 3.3. The patient did eat a little and she takes her medication by mouth. PHYSICAL EXAMINATION: VITAL SIGNS: Temperature 98, pulse is 61, respiratory rate 16, blood pressure 107/50. HEENT: No facial asymmetry. Poor dentition noted. NECK: Supple, no JVD. HEART: Regular. LUNGS: Clear to auscultate. ABDOMEN: Soft. No guarding or rigidity. Bowel sounds present. No palpable mass. EXTREMITIES: No edema. CLINICAL IMPRESSION: 1. Hypotension, resolved. 2. Hypertension. 3. Dementia. 4. Psychotic disorder. 5. Hypokalemia. 6. Hypertension. 7. Degenerative joint disease. 8. High risk for fall. 9. Psychotic disorder exacerbation. PLAN: 1. Transfer this patient to telemetry unit. 2. Continue IV antibiotic for now. 3. Potassium supplement. 4. Follow up lab. 5. PT, OT. 6. General nursing care. 7. If the patient is stable, the patient will be discharged to Geropsych Unit. JOB# [id number]
--- NOTE | 2018-10-30 02:00 | Consultation ---
DATE OF CONSULTATION: 10/29/2018 SUBJECTIVE: Chart was reviewed and the patient interviewed and discussed the patient with the staff in ICU. The patient is still having episodes of yelling and screaming, but not as much. During my interview, the patient said "I am depressed." The patient then started yelling and screaming when I was about to leave the room. The patient could not elaborate for why she feels depressed. She seems to be sad. It seems like being in [facility] has been bothering her. Otherwise, the patient is compliant with taking her medications with no side effects. ASSESSMENT: The patient is still depressed and also still has episodes of agitation. TREATMENT PLAN: Continue monitoring her behavior and her condition and continue also stabilizing psychotropic medications and followup. JOB# [id number]
[2018-10-30] MEDS: D5-0.45NS 1,000 ML IV SCH (04:00)
[2018-10-30 05:34] LABS: % BASOPHILS 0.1 % (0.0-2.0); % EOSINOPHILS 2.1 % (0.0-5.0); % LYMPHOCYTES 11.2 % (20.0-50.0); % MONOCYTES 10.2 % (2.0-10.0); % NEUTROPHILS 76.4 % (40.0-80.0); EOSINOPHILE ABSOLUTE 0.1 Th/cmm (0.1-0.4); HEMATOCRIT 43.1 % (41.0-60); HEMOGLOBIN 14.2 gm/dL (12-16); LYMPHOCYTE ABSOLUTE 0.7 Th/cmm (1.5-3.0); MEAN CORPUSCULAR HEMOGLOBIN 30.6 pg (27.0-31.0); MEAN CORPUSCULAR HGB CONC 32.8 pg (28.0-36.0); MONOCYTE ABSOLUTE 0.7 Th/cmm (0.3-1.0); PLATELET COUNT 227 Th/cmm (150-400); RED BLOOD COUNT 4.64 Mil/cmm (3.80-5.20); RED CELL DISTRIBUTION WIDTH 14.4 % (11.5-20.0); WHITE BLOOD COUNT 6.5 Th/cmm (4.8-10.8)
[2018-10-30 05:54] LABS: ALBUMIN 2.9 gm/dL (3.7-5.3); ALKALINE PHOSPHATASE 130 U/L (34-104); ANION GAP 10.8 (7.0-16.0); BILIRUBIN,TOTAL 0.5 mg/dL (0.3-1.0); BUN - UREA NITROGEN 8 mg/dL (7-25); CALCIUM SERUM 8.3 mg/dL (8.6-10.3); CARBON DIOXIDE 26.4 mEq/L (21.0-31.0); CHLORIDE 103 mEq/L (98-107); CREATININE - SERUM 0.5 mg/dL (0.6-1.2); GLUCOSE 96 mg/dL (70-105); POTASSIUM SERUM 3.2 mEq/L (3.5-5.1); SGOT 25 U/L (13-39); SGPT/ALT 23 U/L (7-52); SODIUM SERUM 137 mEq/L (136-145); TOTAL PROTEIN,SERUM 5.7 gm/dL (6.0-8.3)
[2018-10-30] MEDS: Lactobacillus Rhamnosus GG 15 Billion CFU CAP.SPRINK PO SCH ×2 (08:58→17:18)
[2018-10-30] MEDS: Polyvinyl Alcohol Ophth Soln 15 mL Bottle EACH EYE SCH ×2 (08:58→17:18)
[2018-10-30] MEDS ORDERED: Potassium Chloride 20 mEq ER Tab PO ONE (13:00)
[2018-10-30] MEDS: Albuterol/Ipratropium Neb 3 ML AERS HHN PRN (15:16)
--- NOTE | 2018-10-30 23:11 | Progress Notes ---
DATE: 10/30/2018 SUBJECTIVE: Chart was reviewed and the patient interviewed. Also discussed the patient's condition with the staff and reviewed records and labs. The patient is still having episodes of yelling and screaming, but seems to be less than before. The patient also still needs lots of redirections. She also still gets easily agitated, especially when staff tried to help her with her ADLs. Otherwise, the patient is compliant with taking her medications and she still seems to be depressed. ASSESSMENT: The patient is still agitated and depressed. TREATMENT PLAN: We will continue monitoring her behavior and her condition closely. Also, continue adjusting psychotropic medications and work on behavioral modification. JOB# [id number]
--- NOTE | 2018-10-31 01:29 | Progress Notes ---
DATE: 10/30/2018 IDENTIFICATION: This is an 88-year-old female. SUBJECTIVE: The patient seen and examined. The patient is lying in the bed. The patient does not provide any meaningful history. The patient is on Telemetry unit. PHYSICAL EXAMINATION: VITAL SIGNS: Temperature 98.7, pulse is 100, respiratory rate 18, blood pressure 132/90. HEENT: No facial asymmetry. NECK: Supple, no JVD. HEART: Irregular. CHEST AND LUNGS: Equal in expansion, no expiratory wheezing. ABDOMEN: Soft. No guarding, no rigidity. Bowel sounds present. No palpable mass. EXTREMITIES: No edema. AVAILABLE DIAGNOSTIC DATA: White count of 6.5, hemoglobin 14.2, platelet count of 227. Potassium of 3.2, chloride of 103. BUN and creatinine 8 and 0.5. Alkaline phosphatase 130, albumin of 2.9. Stool occult blood came out positive. Blood cultures and MRSA growth is currently unremarkable. CLINICAL IMPRESSION: 1. Status post hypotension, etiology probably from medication associated with sepsis. 2. Dementia. 3. Psychotic disorder. 4. Degenerative joint disease. 5. High risk for fall. 6. Hypokalemia. PLAN: 1. Replace potassium. 2. Discontinue antibiotic. 3. PT and OT. 4. General nursing care. 5. Psych followup. 6. The patient can be discharged to psych facility once the patient is accepted. JOB# [id number]
[2018-10-31 05:23] LABS: % BASOPHILS 0.1 % (0.0-2.0); % EOSINOPHILS 0.4 % (0.0-5.0); % LYMPHOCYTES 14.4 % (20.0-50.0); % MONOCYTES 10.4 % (2.0-10.0); % NEUTROPHILS 74.7 % (40.0-80.0); LYMPHOCYTE ABSOLUTE 1.1 Th/cmm (1.5-3.0); MEAN CELL VOLUME 93.1 fl (81-100); MEAN CORPUSCULAR HGB CONC 33.3 pg (28.0-36.0); MONOCYTE ABSOLUTE 0.8 Th/cmm (0.3-1.0); NEUTROPHILE ABSOLUTE 5.4 Th/cmm (1.8-8.0); PLATELET COUNT 237 Th/cmm (150-400); RED BLOOD COUNT 4.52 Mil/cmm (3.80-5.20); RED CELL DISTRIBUTION WIDTH 14.2 % (11.5-20.0); WHITE BLOOD COUNT 7.3 Th/cmm (4.8-10.8)
[2018-10-31 05:35] LABS: ALB/GLOB RATIO 1.1 (1.0-1.8); ALBUMIN 2.7 gm/dL (3.7-5.3); ALKALINE PHOSPHATASE 122 U/L (34-104); ANION GAP 10.6 (7.0-16.0); BILIRUBIN,TOTAL 0.5 mg/dL (0.3-1.0); BUN - UREA NITROGEN 13 mg/dL (7-25); CALCIUM SERUM 8.2 mg/dL (8.6-10.3); CARBON DIOXIDE 27.3 mEq/L (21.0-31.0); CHLORIDE 101 mEq/L (98-107); CREATININE - SERUM 0.6 mg/dL (0.6-1.2); GLUCOSE 98 mg/dL (70-105); MAGNESIUM 1.7 mg/dL (1.9-2.7); SGOT 43 U/L (13-39); SGPT/ALT 21 U/L (7-52); SODIUM SERUM 136 mEq/L (136-145); TOTAL PROTEIN,SERUM 5.2 gm/dL (6.0-8.3)
[2018-10-31 05:48] LABS: POTASSIUM SERUM 2.9 mEq/L (3.5-5.1)
--- NOTE | 2018-10-31 06:27 | Progress Notes ---
DATE: SUBJECTIVE: Chart reviewed and the patient interviewed. Also discussed the patient's condition with the staff and reviewed records and labs. The patient is still restless and is still easily agitated, but seems to be calmer than before. The patient also still needs redirections. She still has episodes of yelling and screaming, but seems to be less than before. Otherwise, she is compliant with taking medications and there are no side effects of medications. ASSESSMENT: The patient seems to be slightly calmer. TREATMENT PLAN: Continue monitoring her behavior and her condition and continue to work on behavior modification and on her irritability. JOB# [id number]
[2018-10-31] MEDS: Albuterol/Ipratropium Neb 3 ML AERS HHN PRN (07:09)
[2018-10-31] MEDS: Lactobacillus Rhamnosus GG 15 Billion CFU CAP.SPRINK PO SCH ×2 (08:44→16:19)
[2018-10-31] MEDS: Polyvinyl Alcohol Ophth Soln 15 mL Bottle EACH EYE SCH ×2 (08:47→16:19)
[2018-10-31] MEDS ORDERED: Potassium Chloride Elixir 20 mEq /15 mL UDC PO ONE (10:25)
[2018-10-31] MEDS ORDERED: Mag Sulfate 2gm/50mL Premix 2 GM/50 ML BAG IV ONE (13:53)
--- NOTE | 2018-10-31 23:25 | Discharge Summary ---
DATE OF DISCHARGE: 10/31/2018 CLINICAL IMPRESSION: 1. Symptomatic anemia, status post blood transfusion, etiology multifactorial. 2. Hypotension, multifactorial etiology, secondary to medication related with and poor p.o. intake. 3. Protein-calorie malnutrition. 4. Dementia. 5. Psychiatric disorder. 6. Degenerative joint disease. 7. Hypokalemia. 8. Osteoporosis. 9. High risk for fall. 10. Debility. 11. Hypomagnesemia. REASON FOR ADMISSION: An 88-year-old female transferred from skilled nursing to acute care facility for increasing agitation and aggressive behavior. The patient was seen by Emergency Room MD and noted to have hypotension and severe anemia. The patient was advised to be admitted. Please refer to my medical H and P for further information. HOSPITAL COURSE: The patient was admitted to ICU in the view of hypotension and severe anemia. Blood transfusion was given, IV fluid was given. In the Emergency Room Levophed drip was started, but subsequently discontinued. The patient was empirically placed on IV antibiotic. Infectious Disease consultation was requested along with psychiatrist. The patient was seen by Infectious Disease and empiric antibiotic was continued. The patient did have a CT scan of her chest in order to evaluate for aspiration pneumonia, which revealed small bilateral pleural effusion, but no definite focal pulmonary ____. The patient was also noted to have questionable UTI, but there was no clinical evidence of UTI. The patient did not have any drop of hemoglobin and low blood pressure after the patient was resuscitated. The patient was subsequently transferred to telemetry unit. The patient did have electrolyte imbalance, which was corrected as well. The patient was followed by psychiatrist and accepted to psych unit. The patient was discharged to psychiatric [facility] Unit where the patient will be followed by myself as well as psychiatrist. Nutritional support will be provided. JOB# [id number]
== END 2018-10-31 18:54 | disposition home or self-care (01) | DRG 315 ==
LOC: ER 20:49 → UNDOADMIN 10-28 02:43 → ICU 10-28 02:43 → TELE 10-30 11:15
PROVIDERS: ADMIT Internal Medicine; ATTEND Internal Medicine
PROC: 30233N1 Transfusion of Nonautologous Red Blood Cells into Peripheral Vein, Percutaneous Approach (ICD-10-PCS; principal; 2018-10-28)
DX: I95.89 Other hypotension (principal); F23 Brief psychotic disorder; Z68.1 Body mass index [BMI] 19.9 or less, adult; J90 Pleural effusion, not elsewhere classified; E44.0 Moderate protein-calorie malnutrition; D64.9 Anemia, unspecified; I10 Essential (primary) hypertension; E87.6 Hypokalemia; G30.9 Alzheimer's disease, unspecified; F02.80 Dementia in other diseases classified elsewhere, unspecified severity, without behavioral disturbance, psychotic disturbance, mood disturbance, and anxiety; M19.90 Unspecified osteoarthritis, unspecified site; H40.9 Unspecified glaucoma; F32.9 Major depressive disorder, single episode, unspecified; R50.9 Fever, unspecified; M81.0 Age-related osteoporosis without current pathological fracture; E83.42 Hypomagnesemia; Z88.5 Allergy status to narcotic agent; Z91.81 History of falling; Z88.2 Allergy status to sulfonamides
CPT/HCPCS: 36415-UA; 71045-TC; 71250-TC; 80053-TC; 82150-TC; 82270-TC; 82948-90; 83605; 83690-TC; 83735-TC; 84484-TC; 85007-TC; 85025-TC; 86850-TC; 86900-TC; 86901-TC; 86922-TC; 93005; 94640; 94760; 96375; J0696; J2543; J3370; J3475; J3480; J7030; J7040; P9016; X6452; Z7610

== ENCOUNTER 2018-10-31 19:31 | Inpatient (IN) | payer MEDICARE, MEDICAID ==
--- NOTE | 2018-10-31 21:03 | Progress Notes ---
DATE: IDENTIFICATION: An 88-year-old female. SUBJECTIVE: The patient seen and examined. The patient is nonverbal, does not provide any meaningful history. PHYSICAL EXAMINATION: VITAL SIGNS: Temperature 97.8, pulse 64, respiratory rate 18, blood pressure 104/61. HEENT: No facial asymmetry. NECK: Supple, no JVD. HEART: Regular. LUNGS: Clear to auscultation. ABDOMEN: Soft. No guarding, no rigidity. EXTREMITIES: No edema. AVAILABLE DIAGNOSTIC DATA: Potassium of 2.9 with normal BUN and creatinine, albumin of 2.7. CLINICAL IMPRESSION: 1. Hypokalemia. 2. Protein-calorie malnutrition. 3. Severe anemia status post blood transfusion. No active evidence of any gastrointestinal bleed. 4. Alzheimer's type dementia. 5. Psychotic disorder. 6. Degenerative joint disease. 7. Osteoporosis. 8. High risk for fall. PLAN: 1. Replace potassium. 2. DC antibiotic. 3. Transfer this patient to [facility]. 4. We will continue to follow this patient at [facility]. 5. Follow up lab will be done tomorrow at [facility]. 6. Care plan reviewed and discussed with staff. JOB# [id number]
[2018-10-31 21:57] VITALS: BP 117/58
[2018-10-31] MEDS ORDERED: Maalox 30 mL Cup PO PRN (22:12)
[2018-10-31] MEDS ORDERED: Albuterol/Ipratropium Neb 3 ML AERS HHN PRN (22:21)
[2018-10-31] MEDS ORDERED: Magnesium Hydroxide (MOM) 30 mL UDC PO PRN (22:21)
[2018-10-31] MEDS ORDERED: Fleet Enema 135 mL RC PRN (22:21)
[2018-10-31] MEDS ORDERED: Heparin Sod 5,000Units/ML 5,000 UNITS/ML VIAL SUBQ SCH (22:30)
[2018-11-01 08:14] LABS: CHOLESTEROL 121 mg/dL (<200); HDL -HIGH DENSITY LIPOPROTEIN 34 mg/dL (23-92); TRIGLYCERIDES 84 mg/dL (<150)
[2018-11-01] MEDS: Polyvinyl Alcohol Ophth Soln 15 mL Bottle EACH EYE SCH ×2 (09:01→17:20)
[2018-11-01] MEDS: Multivitamin Tab PO SCH (09:55)
[2018-11-01] MEDS: Lactobacillus Rhamnosus GG 15 Billion CFU CAP.SPRINK PO SCH ×2 (09:56→17:21)
[2018-11-01 11:44] LABS: ANION GAP 16.3 (7.0-16.0); BUN - UREA NITROGEN 16 mg/dL (7-25); CALCIUM SERUM 8.5 mg/dL (8.6-10.3); CARBON DIOXIDE 21.1 mEq/L (21.0-31.0); CHLORIDE 104 mEq/L (98-107); CREATININE - SERUM 0.4 mg/dL (0.6-1.2); GLUCOSE 81 mg/dL (70-105); MAGNESIUM 2.2 mg/dL (1.9-2.7); POTASSIUM SERUM 3.4 mEq/L (3.5-5.1); SODIUM SERUM 138 mEq/L (136-145)
--- NOTE | 2018-11-01 11:49 | History & Physical ---
ADMIT DATE: PATIENT IDENTIFICATION: The patient is an 88-year-old female. CHIEF COMPLAINT: None, unable to provide. HISTORY OF PRESENT ILLNESS: An 88-year-old resident of long-term initially presented to [facility] Emergency Room for aggressive behavior with agitation, where the patient was noted to have fever, hypotension, and severe anemia, which did require ICU admissions. The patient was medically stabilized and [facility]. The patient does not provide a meaningful history due to her underlying dementia. PAST MEDICAL HISTORY: Remarkable for: 1. Dementia. 2. Degenerative joint disease. 3. Depression. 4. Glaucoma. 5. History of urinary tract infection. MEDICATIONS: Has been reviewed and reconciled. ALLERGIES: CODEINE, DEPAKOTE, AND SULFA. SOCIAL HISTORY: She is a resident of long-term. No history of smoking cigarette, alcohol, or drug use. FAMILY HISTORY: Unavailable. REVIEW OF SYSTEMS: Unable to get meaningful history from the patient. PHYSICAL EXAMINATION: GENERAL: The patient is an 88-year-old, alert, awake, lying in the bed, screaming at times not following any commands, but looks very comfortable. VITAL SIGNS: Temperature 97.6, pulse is 84, respiratory rate 18, blood pressure 136/80. SKIN: Warm to touch. Adequate skin turgor. No petechia, no purpura. HEENT: Normocephalic, atraumatic. Extraocular muscles are intact. Tongue was pink and coated. Absent upper and lower dentition noted. No facial asymmetry. NECK: Supple, no JVD, no hepatojugular reflex. No lymphadenopathy, thyromegaly, or carotid bruit. HEART: Both heart sounds are regular. CHEST AND LUNGS: Equal in expansion, no expiratory wheezing. ABDOMEN: Soft. No guarding, no rigidity. Liver and spleen not palpable. No palpable mass. EXTREMITIES: No edema, no cyanosis, no calf tenderness noted. Peripheral pulses are +2. Diffuse osteoarthritic changes noted on the major and minor joint. NEUROLOGIC: The patient is alert, awake, lying in the bed without any acute distress. No facial asymmetry noted. Moving upper and lower extremity without any difficulty. Due to her dementia, complete neurological examination is not possible. AVAILABLE DIAGNOSTIC DATA: None for my review. CLINICAL IMPRESSION: 1. Hypokalemia, hypomagnesemia, replaced yesterday and needs further evaluation. 2. History of hypertension, currently normotensive. 3. Psychotic disorder exacerbation. 4. Dementia. 5. Dysphagia. 6. Glaucoma. 7. Degenerative joint disease. 8. High risk for fall. PLAN: 1. Psychotic evaluation and management deferred to psychiatrist. 2. Basic metabolic panel and magnesium will be checked. 3. The patient is to resume her prior medications for her underlying problems. The patient will have continuation of medication for her hypertension, which is Cozaar and losartan along with Xalatan for the glaucoma and the patient currently on DVT prophylaxis with heparin, which I will discontinue. The patient will be followed by us during the stay in the hospital, p.r.n. inhalation therapy will be continued. Further recommendation will be given once admission labs are available. The patient is medically stable at this time to participate in activity per the Ger[facility] Unit. I sincerely thank you, Dr. Ten Vallecillo for giving me the opportunity to prior participating in patient of yours. [facility]# [id number]
[2018-11-01] MEDS ORDERED: Potassium Chloride 20 mEq ER Tab PO ONE (14:10)
--- NOTE | 2018-11-01 19:21 | Psychiatric Evaluation ---
DATE OF SERVICE: PSYCHIATRIC INITIAL EVALUATION AND MENTAL STATUS EXAM THE PATIENT'S AGE: 88. SEX: Female. PHYSICIAN: Dr. Vallecillo. CHIEF COMPLAINT: Confusion and agitation. HISTORY OF PRESENT ILLNESS: The patient is an 88-year-old female who was transferred from med-surg unit to the Geropsych Unit because of increased agitation and confusion. The patient has been agitated and shouting and screaming and also resisting care and getting agitated and aggressive with the staff when they try to help her with her ADLs. The patient has dementia and has been extremely paranoid. PAST PSYCHIATRIC HISTORY: The patient has history of dementia with psychosis as well as depression. PAST MEDICAL HISTORY: The patient has hypertension and degenerative joint disease as well as glaucoma. SOCIAL HISTORY: The patient lives in a nursing facility. No known alcohol or drug use. No history of abuse or any legal issues. ALLERGIES: No known allergies. MENTAL STATUS EXAMINATION: The patient appears her stated age. Anxious. Confused. Unable to carry on coherent conversation. The patient gets irritable and agitated easily, especially when asking her questions. The patient did not answer questions regarding auditory or visual hallucinations, but actively responding. The patient did not answer questions regarding suicide or homicide. The patient is alert, but disoriented to time, place, person and situation. Impaired immediate, recent and remote memories. Poor insight and judgment. ASSESSMENT: PRIMARY DIAGNOSIS: Unspecified psychosis. SECONDARY DIAGNOSES: Dementia, severe, with psychosis and behavioral disturbances. TREATMENT PLAN: We will monitor the patient's behavior and condition closely. We will start individual as well as milieu psychotherapy. We will continue current psychotropic medications and we will adjust the dose of Remeron and Risperdal. ESTIMATED LENGTH OF STAY: 5-7 days. THE PATIENT'S STRENGTHS AND WEAKNESSES: The patient is compliant with taking her medications. Weaknesses are her poor impulse control and her forgetfulness and confusion. AFTER DISCHARGE PLAN: The patient will return to nursing facility and outpatient treatment and followup. CRITERIA FOR DISCHARGE: The patient will not be agitated or psychotic and we will stabilize psychotropic medications and we will establish outpatient treatment plans. JOB# [id number]
[2018-11-01] MEDS ORDERED: Non-Formulary Item 1 EA (Mirtazapine [Mirtazapine] 7.5 MG) PO SCH (21:00)
[2018-11-02 06:09] LABS: A1C 5.3 % (4.8-5.6)
[2018-11-02] MEDS: Lactobacillus Rhamnosus GG 15 Billion CFU CAP.SPRINK PO SCH ×2 (08:34→16:04)
[2018-11-02] MEDS: Multivitamin Tab PO SCH (08:34)
[2018-11-02] MEDS: Polyvinyl Alcohol Ophth Soln 15 mL Bottle EACH EYE SCH ×2 (08:49→16:02)
[2018-11-02 11:29] LABS: % BASOPHILS 1.2 % (0.0-2.0); % EOSINOPHILS 0.1 % (0.0-5.0); % LYMPHOCYTES 8.6 % (20.0-50.0); % NEUTROPHILS 87.1 % (40.0-80.0); BASOPHILE ABSOLUTE 0.1 Th/cumm (0-0.2); HEMATOCRIT 46.2 % (41.0-60); LYMPHOCYTE ABSOLUTE 0.8 Th/cmm (1.5-3.0); MEAN CELL VOLUME 93.1 fl (81-100); MEAN CORPUSCULAR HEMOGLOBIN 30.3 pg (27.0-31.0); MEAN CORPUSCULAR HGB CONC 32.5 pg (28.0-36.0); MONOCYTE ABSOLUTE 0.3 Th/cmm (0.3-1.0); NEUTROPHILE ABSOLUTE 7.9 Th/cmm (1.8-8.0); PLATELET COUNT 284 Th/cmm (150-400); RED BLOOD COUNT 4.96 Mil/cmm (3.80-5.20); RED CELL DISTRIBUTION WIDTH 14.4 % (11.5-20.0); WHITE BLOOD COUNT 9.1 Th/cmm (4.8-10.8)
[2018-11-02 11:41] LABS: ALB/GLOB RATIO 1.1 (1.0-1.8); ALKALINE PHOSPHATASE 113 U/L (34-104); ANION GAP 13.8 (7.0-16.0); BILIRUBIN,TOTAL 0.6 mg/dL (0.3-1.0); BUN - UREA NITROGEN 19 mg/dL (7-25); CALCIUM SERUM 8.4 mg/dL (8.6-10.3); CARBON DIOXIDE 23.9 mEq/L (21.0-31.0); CHLORIDE 106 mEq/L (98-107); CREATININE - SERUM 0.5 mg/dL (0.6-1.2); GLUCOSE 92 mg/dL (70-105); POTASSIUM SERUM 3.7 mEq/L (3.5-5.1); SGOT 48 U/L (13-39); SGPT/ALT 24 U/L (7-52); SODIUM SERUM 140 mEq/L (136-145); TOTAL PROTEIN,SERUM 5.7 gm/dL (6.0-8.3)
[2018-11-02 12:11] LABS: ALLEN TEST Positive; PaCO2 31.3 mmHg (35.0-45.0); PaO2 92.8 mmHg (80.0-100.0); sO2c 97.5 % (92.0-100.0)
--- NOTE | 2018-11-02 12:40 | Diagnostic Imaging Report ---
Exam: Portable summation of chest HISTORY: Shortness of breath Findings: Portable summation of the chest at 1123 views compared to prior examination 10/27/2018 demonstrates extensive left basilar infiltrate and effusion. Severe scoliosis again appreciated. There is evidence of osteopenia. The right lung parenchyma is well aerated IMPRESSION: left lower lobe infiltrate and effusion. Follow-up exams recommended.
[2018-11-02] MEDS ORDERED: Nitroglycerin 0.2 mg/hr Tdm TD SCH (12:45)
[2018-11-02] MEDS ORDERED: Albuterol/Ipratropium Neb 3 ML AERS HHN PRN (12:56)
[2018-11-02] MEDS ORDERED: Albuterol/Ipratropium Neb 3 ML AERS HHN SCH (13:00)
[2018-11-02] MEDS ORDERED: Furosemide 40 mg/4mL UDC PO SCH (17:00)
[2018-11-03] MEDS ORDERED: Potassium Chloride 20 mEq ER Tab PO SCH (09:00)
--- NOTE | 2018-11-03 17:23 | Discharge Summary ---
DATE OF DISCHARGE: 11/02/2018 AGE: 88. SEX: Female. FINAL DIAGNOSIS/PRIMARY DIAGNOSIS: Unspecified psychosis. SECONDARY DIAGNOSIS: Dementia, moderate to severe psychosis and behavioral disturbances. REASON FOR HOSPITALIZATION: The patient was transferred from Med/Surg unit because of confusion and agitation and shouting behavior. HOSPITAL COURSE: The patient was admitted to the [facility]ops[facility] Unit. The patient was still agitated and restless. The patient was given Risperdal in a dose of 1 mg in the morning and 1 mg at bedtime. The patient was at times refused to take medications. The patient was still agitated and restless and about the same time, Dr. Taylor decided to transfer the patient to Med/Surg because of other complications with her medical condition. AFTER DISCHARGE PLANS: The patient discharged from the hospital to ICU with plans for follow her up there. EXPECTED OUTCOME AFTER DISCHARGE: Depends on the patient's condition in ICU. [facility]# [id number]
== END 2018-11-02 18:45 | disposition short-term general hospital (02) | DRG 885 ==
LOC: GERO 19:31
PROVIDERS: ADMIT Psychiatry & Neurology Psychiatry; ATTEND Psychiatry & Neurology Psychiatry
DX: F23 Brief psychotic disorder (principal); E46 Unspecified protein-calorie malnutrition; F02.81 Dementia in other diseases classified elsewhere, unspecified severity, with behavioral disturbance; Z68.1 Body mass index [BMI] 19.9 or less, adult; E87.6 Hypokalemia; D64.9 Anemia, unspecified; G30.9 Alzheimer's disease, unspecified; M19.90 Unspecified osteoarthritis, unspecified site; M81.0 Age-related osteoporosis without current pathological fracture; I10 Essential (primary) hypertension; H40.9 Unspecified glaucoma; E83.42 Hypomagnesemia; R13.10 Dysphagia, unspecified; Z91.81 History of falling; Z88.5 Allergy status to narcotic agent; Z88.2 Allergy status to sulfonamides
CPT/HCPCS: 36415-UA; 36600-90; 71045-TC; 80048-TC; 80053-TC; 80061-TC; 82803-TC; 83036-90; 83735-TC; 83880-TC; 84484-TC; 85025-TC; 93005; 93307-TC; 94640; 94760; J1644; Z7610

== ENCOUNTER 2018-11-02 19:22 | Inpatient (IN) | payer MEDICARE, MEDICAID ==
[2018-11-02 21:01] VITALS: BP 107/67
--- NOTE | 2018-11-02 22:11 | Progress Notes ---
DATE: SUBJECTIVE: Chart was reviewed and the patient interviewed. Also discussed the patient's condition with the staff and reviewed records and labs. The patient still has yelling and screaming episodes and still has difficulty following staff directions. The patient also is restless and she is still easily agitated. She also still has severe mood swings. The patient also still has difficulty swallowing medications. Also, according to staff, the patient lost weight. Dr. Taylor is aware of her weight loss. Otherwise, the patient is compliant with taking her medications with no side effects. ASSESSMENT: The patient is still psychotic and is still irritable and agitated. TREATMENT PLAN: Continue to monitor her behavior and her condition closely. Also, increase Risperdal to 1 mg twice a day and 1 mg at bedtime. Also, we will do swallow evaluation and continue to follow up. [facility]# [id number]
--- NOTE | 2018-11-03 00:52 | Progress Notes ---
DATE: IDENTIFICATION: The patient is an 88-year-old female. SUBJECTIVE: The patient seen and examined and I was called to see the patient because the patient was altered and not following any commands. Upon my arrival, the patient is alert, awake and talking and eating her own food with minimal help. The patient has dementia and has a period of agitations. The patient has been on Risperdal along with Remeron and other medications for her psychotic illness. PHYSICAL EXAMINATION: VITAL SIGNS: Temperature 97.6, pulse is 100, respiratory rate is 18, blood pressure 132/86. HEENT: No facial asymmetry. NECK: Supple, no JVD. HEART: Regular. CHEST: Lung equal in size. Mild expiratory wheezing. ABDOMEN: Soft. No guarding, no rigidity. Bowel sounds present. No palpable mass. EXTREMITIES: No edema. AVAILABLE DIAGNOSTIC DATA: White count of 9.1, hemoglobin 15, platelet count 284, pH of 7.46, pCO2 of 31.3, pO2 of 92, BUN, and creatinine 19 and 0.5. B-type natriuretic to 1160. Currently, the patient is not on diuretics. IMPRESSION: 1. Her episode of acute respiratory distress earlier. The patient's chest x-ray is currently pending. BNP is elevated. The patient looks comfortable with currently prescribed medication. The patient has no sign of infection at this time and her creatinine is also reported normal. 2. Psychotic disorder exacerbation. 3. Dementia. 4. High risk for fall. 5. Dysphagia. PLAN: In the view of elevated BNP, the patient currently on hypertensive medications. I will cut down the dose of Cozaar to 50 mg. We will start the patient on Lasix and potassium for now. We will evaluate the chest x-ray. If the patient's condition deteriorates, then we will consider the patient to be transferred. Otherwise, we will try to manage this patient's to [facility] Unit. Hydrochlorothiazide will be discontinued as well. The patient will have follow up lab and I will follow this patient closely. The patient may need to be transferred to telemetry unit, if the patient has respiratory distress. I will also get the 2D echocardiogram and Cardiology evaluation. JOB# [id number]
[2018-11-03 05:27] LABS: % BASOPHILS 0.1 % (0.0-2.0); % EOSINOPHILS 1.5 % (0.0-5.0); % LYMPHOCYTES 20.8 % (20.0-50.0); % MONOCYTES 10.2 % (2.0-10.0); % NEUTROPHILS 67.4 % (40.0-80.0); EOSINOPHILE ABSOLUTE 0.1 Th/cmm (0.1-0.4); HEMATOCRIT 47.4 % (41.0-60); HEMOGLOBIN 15.6 gm/dL (12-16); LYMPHOCYTE ABSOLUTE 1.4 Th/cmm (1.5-3.0); MONOCYTE ABSOLUTE 0.7 Th/cmm (0.3-1.0); NEUTROPHILE ABSOLUTE 4.5 Th/cmm (1.8-8.0); PLATELET COUNT 317 Th/cmm (150-400); RED BLOOD COUNT 5.04 Mil/cmm (3.80-5.20)
[2018-11-03 05:43] LABS: WHITE BLOOD COUNT 6.7 Th/cmm (4.8-10.8)
[2018-11-03 05:45] LABS: ALB/GLOB RATIO 1.1 (1.0-1.8); ALBUMIN 3.3 gm/dL (3.7-5.3); ALKALINE PHOSPHATASE 119 U/L (34-104); ANION GAP 12.5 (7.0-16.0); BILIRUBIN,TOTAL 0.6 mg/dL (0.3-1.0); BUN - UREA NITROGEN 17 mg/dL (7-25); CALCIUM SERUM 8.6 mg/dL (8.6-10.3); CARBON DIOXIDE 31.4 mEq/L (21.0-31.0); CHLORIDE 101 mEq/L (98-107); CREATININE - SERUM 0.5 mg/dL (0.6-1.2); GLUCOSE 94 mg/dL (70-105); MAGNESIUM 1.9 mg/dL (1.9-2.7); SGOT 43 U/L (13-39); SGPT/ALT 26 U/L (7-52); SODIUM SERUM 142 mEq/L (136-145); TOTAL PROTEIN,SERUM 6.4 gm/dL (6.0-8.3)
[2018-11-03 06:10] LABS: POTASSIUM SERUM 2.9 mEq/L (3.5-5.1)
[2018-11-03] MEDS ORDERED: POTASSIUM PHOSPHATE IV ONE (07:26)
[2018-11-03] MEDS ORDERED: SODIUM CHLORIDE IV ONE (07:26)
[2018-11-03] MEDS ORDERED: Albuterol/Ipratropium Neb 3 ML AERS HHN PRN ×2 (07:32→08:59)
--- NOTE | 2018-11-03 08:20 | Diagnostic Imaging Report ---
Exam: Portable chest x-ray HISTORY: Hypotension Prior exam: 11/02/2018 Findings: Portable exam of chest was reviewed. The study demonstrates unchanged appearance of the scoliotic convexity of the thoracolumbar spine. Again noted left basilar infiltrate and effusion slightly decreased compared to the prior study.. The right lung parenchyma is well aerated. IMPRESSION: Slight decrease in left basilar infiltrate and effusion compared to prior study of 11/02/2018.
[2018-11-03] MEDS ORDERED: Fleet Enema 135 mL RC PRN (08:59)
[2018-11-03] MEDS: Potassium Chloride 20 mEq ER Tab PO SCH (09:00)
[2018-11-03] MEDS: Polyvinyl Alcohol Ophth Soln 15 mL Bottle EACH EYE SCH ×2 (09:00→17:49)
[2018-11-03] MEDS: Multivitamin Tab PO SCH (09:00)
[2018-11-03] MEDS: Lactobacillus Rhamnosus GG 15 Billion CFU CAP.SPRINK PO SCH ×2 (09:00→17:45)
[2018-11-03] MEDS: Aspirin 81mg Chewable Tab PO SCH (09:00)
[2018-11-03] MEDS ORDERED: Potassium Chloride 20 mEq ER Tab PO ONE (09:20)
[2018-11-03] MEDS ORDERED: VTE Chemical Prophylaxis Screen/Admission MC PRN (09:24)
--- NOTE | 2018-11-03 10:18 | History & Physical ---
ADMIT DATE: PATIENT IDENTIFICATION: The patient is an 88-year-old female. CHIEF COMPLAINT: Unable to obtain, but respiratory distress noted by nursing staff. HISTORY OF PRESENT ILLNESS: An 88-year-old female, resident of detention, followed by me at [facility] Unit while she was getting her psychiatric treatment and I was managing her medical illness, where the patient was noted to have acute respiratory distress associated with altered mental status. I was called in to see the patient and I did evaluate her. After being evaluated by me, it was noted her BNP was more than 2000 and troponin was 2. EKG was nondiagnostic. Based on her abnormal labs with respiratory distress, I advised the patient to be transferred to ICU. I do not get any meaningful history from the patient due to underlying dementia. PAST MEDICAL HISTORY: Remarkable for: 1. Dementia. 2. Depression. 3. Hypertension. 4. Degenerative joint disease. 5. History of recurrent urinary tract infection. MEDICATIONS: Currently, the patient has been placed on medication, which includes breathing treatment, DuoNeb, Lipitor, Coreg, Aricept, Lasix, potassium, Neurontin, Xalatan, Ativan, Cozaar, Namenda, Remeron, Nitro-Dur patch and potassium. ALLERGIES: The patient is allergic to CODEINE, DEPAKOTE, SULFA. SOCIAL HISTORY: The patient resides in a detention. No history of smoking cigarette, alcohol, or drug use. FAMILY MEDICAL HISTORY: Unavailable. REVIEW OF SYSTEMS: Unable to obtain meaningful history from the patient. PHYSICAL EXAMINATION: GENERAL: The patient is alert, awake, follows simple commands. VITAL SIGNS: Temperature 98.6, pulse 85, respiratory rate 18, blood pressure is 150/90. HEENT: Normocephalic, atraumatic. Extraocular muscles are intact. Tongue was pink and coated. Poor dentition noted. Multiple absent teeth noted. NECK: Supple, no JVD, no hepatojugular reflex. No lymphadenopathy, thyromegaly or carotid bruit. HEART: Both heart sounds are regular. Grade 2/6 systolic murmur noted. CHEST AND LUNGS: Equal in expansion with no expiratory wheezing. Fine basilar crackles noted. ABDOMEN: Soft. No guarding, no rigidity. Bowel sounds are present. No palpable mass. EXTREMITIES: No edema, no cyanosis. Peripheral pulses are +1. No calf tenderness noted. NEUROLOGIC: Alert, awake, follows commands. Decreased power throughout the upper and lower extremity noted. AVAILABLE DIAGNOSTIC DATA: Performed on 11/02/2018, reviewed, which did reveal the patient's BNP of more than 2000. Chest x-ray revealed questionable infiltrate. The ABG was pO2 of 92.1, pCO2 of 31.3 with pH of 7.46 and hemoglobin was also reported normal. EKG was nondiagnostic for any acute ST-T changes, representing acute ischemia. Troponin was reported 2. CLINICAL IMPRESSION: 1. Acute respiratory distress, etiology most likely secondary to acute pulmonary edema in the presence of elevated BNP of more than 2000 and chest x-ray has infiltrate, though there is a left lower lobe infiltrate, clinically looks more like acute pulmonary edema, etiology of pulmonary edema most likely secondary to cardiac in origin, considering troponin has been significantly elevated. The patient's troponin has been elevated to 2. 2. Coronary artery disease with most likely non-Q wave myocardial infarction. 3. Dementia. 4. Hypertension. 5. Psychotic disorder. 6. Degenerative joint disease. 7. Osteoporosis. 8. Dysphagia. PLAN: The patient has been transferred to ICU. At this time, the patient will be placed on oxygen, nitrates, beta blockers, statins, low molecular weight heparin, aspirin along with other medication as patient is receiving. Cardiac enzymes will be obtained as well along with Cardiology consultation from Dr. Christiano Nicole. We will follow Dr. Nicole's recommendation. The patient will be also followed by psychiatrist since the patient was followed by psychiatrist in Geropsych Unit. We will discuss with the patient's family about the patient's current condition, diagnosis and treatment plan. In the view of her advanced age, I do not think the patient is an ideal candidate for aggressive intervention. We will also obtain 2D echocardiogram as well in order to evaluate wall motion abnormality as well as valvular disease. The patient's overall long-term prognosis is guarded. Symptomatic therapy will be ordered as well. Care plan has been reviewed and discussed with assigned RN. JOB# [id number]
[2018-11-03] MEDS: Nitroglycerin 0.2 mg/hr Tdm TD SCH (10:52)
[2018-11-03] MEDS: Albuterol/Ipratropium Neb 3 ML AERS HHN SCH ×2 (13:09→19:00)
--- NOTE | 2018-11-03 13:38 | General Progress Note ---
Subjective - Review of Systems Service Date: 11/03/18 Subjective: Patient is still lethargic patient failed swallow eval Objective - Results Result Diagrams: 11/03/18 04:45 11/03/18 04:45 Recent Labs: Laboratory Last Values WBC 6.7 Th/cmm (4.8-10.8) D 11/03/18 04:45 RBC 5.04 Mil/cmm (3.80-5.20) 11/03/18 04:45 Hgb 15.6 gm/dL (12-16) 11/03/18 04:45 Hct 47.4 % (41.0-60) 11/03/18 04:45 MCV 94.0 fl (81-100) 11/03/18 04:45 MCH 31.0 pg (27.0-31.0) 11/03/18 04:45 MCHC Differential 33.0 pg (28.0-36.0) 11/03/18 04:45 RDW 14.0 % (11.5-20.0) 11/03/18 04:45 Plt Count 317 Th/cmm (150-400) 11/03/18 04:45 MPV 7.9 fl 11/03/18 04:45 Neutrophils % 67.4 % (40.0-80.0) 11/03/18 04:45 Lymphocytes % 20.8 % (20.0-50.0) 11/03/18 04:45 Monocytes % 10.2 % (2.0-10.0) H 11/03/18 04:45 Eosinophils % 1.5 % (0.0-5.0) 11/03/18 04:45 Basophils % 0.1 % (0.0-2.0) 11/03/18 04:45 Sodium 142 mEq/L (136-145) 11/03/18 04:45 Potassium 2.9 mEq/L (3.5-5.1) L* 11/03/18 04:45 Chloride 101 mEq/L (98-107) 11/03/18 04:45 Carbon Dioxide 31.4 mEq/L (21.0-31.0) H 11/03/18 04:45 Anion Gap 12.5 (7.0-16.0) 11/03/18 04:45 BUN 17 mg/dL (7-25) 11/03/18 04:45 Creatinine 0.5 mg/dL (0.6-1.2) L 11/03/18 04:45 Est GFR ( Amer) TNP 11/03/18 04:45 Est GFR (Non-Af Amer) TNP 11/03/18 04:45 BUN/Creatinine Ratio 34.0 11/03/18 04:45 Glucose 94 mg/dL (70-105) 11/03/18 04:45 Calcium 8.6 mg/dL (8.6-10.3) 11/03/18 04:45 Magnesium 1.9 mg/dL (1.9-2.7) 11/03/18 04:45 Total Bilirubin 0.6 mg/dL (0.3-1.0) 11/03/18 04:45 AST 43 U/L (13-39) H 11/03/18 04:45 ALT 26 U/L (7-52) 11/03/18 04:45 Alkaline Phosphatase 119 U/L (34-104) H 11/03/18 04:45 Troponin I 1.57 ng/mL (0.01-0.05) H* D 11/03/18 04:45 B-Natriuretic Peptide 891.0 pg/mL (5.0-100.0) H 11/03/18 04:45 Total Protein 6.4 gm/dL (6.0-8.3) 11/03/18 04:45 Albumin 3.3 gm/dL (3.7-5.3) L 11/03/18 04:45 Globulin 3.1 gm/dL 11/03/18 04:45 Albumin/Globulin Ratio 1.1 (1.0-1.8) 11/03/18 04:45 - Physical Exam Vitals and I&O: Vital Signs Temp 97.5 F 11/03/18 04:00 Pulse 90 11/03/18 13:19 Resp 26 11/03/18 13:19 BP 152/93 11/03/18 10:52 Pulse Ox 98 11/03/18 13:19 Intake & Output 11/02/18 11/03/18 11/03/18 18:59 06:59 18:59 Intake Total 200 Balance 200 Weight (lbs) 36.287 kg Intake: Oral 200 Other: # Voids 4 # Bowel Movements 2 Stool Characteristics Soft Soft Brown Brown Weight Source Bedscale Active Medications: Current Medications Acetaminophen (Tylenol) 325 mg PO Q4HR PRN PRN Reason: Pain (Mild) Stop: 01/02/19 08:58 Albuterol/Ipratropium (Duoneb Neb) 3 ml HHN [id number] [facility] Stop: 01/02/19 12:59 Last Admin: 11/03/18 13:09 Dose: 3 ml Albuterol/Ipratropium (Duoneb Neb) 3 ml HHN Q2H PRN PRN Reason: Wheezing Stop: 01/02/19 07:31 Albuterol/Ipratropium (Duoneb Neb) 3 ml HHN [id number] [facility]IC Stop: 01/02/19 12:59 Albuterol/Ipratropium (Duoneb Neb) 3 ml HHN Q2H PRN PRN Reason: Wheezing Stop: 01/02/19 08:58 Artificial Tears (Artificial Tears Ophth Soln) 2 drop EACH EYE BID [facility] Stop: 01/02/19 08:59 Aspirin (Aspirin Chewable) 81 mg PO DAILY [facility] Stop: 01/02/19 09:14 Atorvastatin Calcium (Lipitor) 40 mg PO DAILY [facility]; Protocol Stop: 01/02/19 09:14 Bisacodyl (Dulcolax 10 Mg Supp) 10 mg RC Q2D PRN PRN Reason: Constipation Stop: 01/02/19 08:58 Carvedilol (Coreg) 3.125 mg PO BID [facility] Stop: 01/02/19 08:59 Donepezil HCl (Aricept) 10 mg PO HS [facility] Stop: 01/02/19 20:59 Enoxaparin Sodium (Lovenox) 40 mg SUBQ Q12HR [facility] Stop: 01/02/19 20:59 Furosemide (Lasix) 40 mg IVP DAILY [facility] Stop: 01/01/19 22:59 Last Admin: 11/03/18 10:51 Dose: 40 mg Gabapentin (Neurontin) 300 mg PO TID [facility] Stop: 01/02/19 08:59 Lactobacillus Rhamnosus (Culturelle 15b) 1 each PO BID [facility] Stop: 01/02/19 08:59 Latanoprost (Xalatan 0.005% Ophth Soln) 1 drop EACH EYE HS [facility] Stop: 01/02/19 20:59 Lorazepam (Ativan) 0.5 mg PO Q4HR PRN; Protocol PRN Reason: Agitation Stop: 01/02/19 08:58 Last Admin: 11/03/18 10:53 Dose: 0.5 mg Losartan Potassium (Cozaar) 25 mg PO DAILY [facility] Stop: 01/02/19 08:59 Memantine (Namenda) 5 mg PO DAILY [facility] Stop: 01/02/19 08:59 Mirtazapine (Remeron) 7.5 mg PO HS [facility]; Protocol Stop: 01/02/19 20:59 Miscellaneous (Vte Chemical Prophylaxis Screen/ Admission) 1 ea MC PRN PRN PRN Reason: PROTOCOL Stop: 01/02/19 09:23 Multivitamins/Vitamin C (Theragran) 1 tab PO DAILY [facility] Stop: 01/02/19 08:59 Nitroglycerin (Transderm-Nitro) 1 patch TD DAILY [facility] Stop: 01/02/19 08:59 Last Admin: 11/03/18 10:52 Dose: 1 patch Potassium Chloride (Klor-Con) 20 meq PO DAILY [facility] Stop: 01/02/19 08:59 Risperidone (Risperdal) 1 mg PO DAILY [facility]; Protocol Stop: 01/02/19 08:59 Risperidone (Risperdal) 1 mg PO HS [facility]; Protocol Stop: 01/02/19 20:59 Senna (Senna) 8.6 mg PO BID [facility] Stop: 01/02/19 08:59 Sodium Phosphate (Fleet Enema) 135 ml RC Q2D PRN PRN Reason: IF DULCOLAX INEFFECTIVE Stop: 01/02/19 08:58 Trazodone HCl (Desyrel) 25 mg PO HS PRN; Protocol PRN Reason: Insomnia Stop: 01/02/19 08:58 General: No acute distress HEENT: Mucous membr. moist/pink Neck: Supple, JVD, +2 carotid pulse wo bruit (flight) Cardiovascular: Regular rate, Normal S1, Normal S2, Systolic murmurs Lungs: Clear to auscultation, Normal air movement Abdomen: Bowel sounds, Soft, Other (no organomegaly) Extremities: Edema (no edema) Neurological: Reflexes 2+ - Procedures Procedures: Procedures Procedure Code Date TRANSFUSE NONAUT RED BLOOD CELLS IN PERIPH VEIN, [facility] 49709S8 10/28/18 Assessment/Plan - Assessment Assessment: Non-Q-wave myocardial infarction Congestive heart failure systolic dysfunction acute Cardiomyopathy Major depression Schizoaffective disorder Dementia Osteoporosis Dysphagia protein calorie malnutrition Urinary tract infection - Plan Plan: Continue present management patient to have anticoagulation
--- NOTE | 2018-11-03 13:50 | Cardiology ---
11/02/[address] Vallecillo. M-MODE ECHOCARDIOGRAM: Mitral valve, anterior leaflet of mitral valve shows decreased excursion, EF velocity. Posterior leaflet of the mitral valve shows decreased excursion. Left ventricular posterior wall shows increased thickness, normal excursion. Interventricular septum shows increased thickness, normal excursion, hypertrophy of the left ventricle, ejection fraction 35%. Left atrium shows normal dimension, normal excursion of aortic leaflets. CONCLUSION: Hypertrophy of the left ventricle, cardiomyopathy, and ejection fraction 35%. 2D ECHO: Long axis view showed enlarged left ventricular cavity with decreased ejection fraction. Mitral valve shows decreased excursion. Left atrium normal. Aortic root shows normal dimension, normal excursion of aortic leaflets. Short view of mitral valve normal. Short axis view of aortic valve normal. Apical four chamber view shows enlarged left ventricular cavity with decreased ejection fraction, hypertrophy of the left ventricle 35%. Left atrium normal. Right ventricular cavity, right atrium normal, no pericardial effusion. CONCLUSION: Hypertrophy of the left ventricle, cardiomyopathy, and ejection fraction 35%. Doppler study shows moderate mitral regurgitation, moderate aortic regurgitation, mild tricuspid regurgitation, right ventricular systolic pressure 29 mmHg. [facility]# [id number]
--- NOTE | 2018-11-03 14:40 | Progress Notes ---
DATE: The patient was transferred from [facility] Med-Surg floor because of complications in her physical condition. Dr. Taylor is continued to monitor her condition in ICU. The patient is currently calm, but still has episodes of irritability and agitation. At this time, because of her medical condition. I will hold the psychotropic medications until further evaluation of her medical condition as well as her psychological condition and will continue to follow up. [facility]# [id number]
[2018-11-03] MEDS: Enoxaparin 40 mg/0.4 mL 0.4mL Syr SUBQ SCH (20:12)
--- NOTE | 2018-11-03 21:26 | Consultation ---
DATE OF CONSULTATION: 11/03/[address] Taylor. HISTORY AND PHYSICAL: This is an 88-year-old female patient who was transferred from [facility] because of altered level of consciousness, possibly secondary to medication. The patient is still at the present time is lethargic and the patient failed swallow evaluation. The patient has elevated troponin level and hence Cardiology consult is requested. PAST MEDICAL HISTORY: Dementia, major depression, hypertension, urinary tract infection, psychotic disorders, schizoaffective disorder, osteoporosis, dysphagia. FAMILY HISTORY: Unremarkable. SOCIAL HISTORY: No history of smoking, alcohol abuse. ALLERGIES: No known allergies. PHYSICAL EXAMINATION: VITAL SIGNS: Blood pressure 130/80, pulse 78, respirations 28. HEAD: Normocephalic. No lumps. EYES: Pupils equal, reactive to light. Fundi show AV nicking, sclerae white, conjunctivae pink. NECK: Carotid 2+. Normal upstroke. JVD flat. Thyroid not palpable. Lymph nodes not palpable. CHEST: Shows increased AP diameter. No kyphosis, scoliosis. LUNGS: Bilateral bronchovesicular breath sounds. HEART: PMI fifth intercostal space with lateral to midclavicular line. S1, S2, S3, S4. ABDOMEN: Soft. Liver, spleen not palpable. No organomegaly. Bowel sounds active. NEUROLOGIC: Unremarkable. EXTREMITIES: Peripheral pulses 2+. No pedal edema. CLINICAL IMPRESSION: Non-Q-wave myocardial infarction, dementia, major depression, hypertension, urinary tract infection, psychotic disorder, osteoporosis, schizoaffective disorder, and dysphagia. PLAN: The patient to continue on Lovenox. We will get echocardiogram and monitor the patient. JOB# [id number]
[2018-11-04 05:02] LABS: % BASOPHILS 0.1 % (0.0-2.0); % EOSINOPHILS 0.8 % (0.0-5.0); % LYMPHOCYTES 19.6 % (20.0-50.0); % MONOCYTES 5.8 % (2.0-10.0); % NEUTROPHILS 73.7 % (40.0-80.0); EOSINOPHILE ABSOLUTE 0.1 Th/cmm (0.1-0.4); HEMATOCRIT 44.4 % (41.0-60); HEMOGLOBIN 14.6 gm/dL (12-16); LYMPHOCYTE ABSOLUTE 1.4 Th/cmm (1.5-3.0); MEAN CELL VOLUME 93.5 fl (81-100); MEAN CORPUSCULAR HEMOGLOBIN 30.7 pg (27.0-31.0); MEAN CORPUSCULAR HGB CONC 32.9 pg (28.0-36.0); MONOCYTE ABSOLUTE 0.4 Th/cmm (0.3-1.0); NEUTROPHILE ABSOLUTE 5.3 Th/cmm (1.8-8.0); PLATELET COUNT 293 Th/cmm (150-400); RED BLOOD COUNT 4.75 Mil/cmm (3.80-5.20); RED CELL DISTRIBUTION WIDTH 14.3 % (11.5-20.0); WHITE BLOOD COUNT 7.2 Th/cmm (4.8-10.8)
[2018-11-04 05:23] LABS: ALKALINE PHOSPHATASE 105 U/L (34-104); ANION GAP 11.9 (7.0-16.0); BILIRUBIN,TOTAL 0.6 mg/dL (0.3-1.0); BUN - UREA NITROGEN 18 mg/dL (7-25); CALCIUM SERUM 8.6 mg/dL (8.6-10.3); CARBON DIOXIDE 30.3 mEq/L (21.0-31.0); CHLORIDE 104 mEq/L (98-107); CHOLESTEROL 131 mg/dL (<200); CREATININE - SERUM 0.5 mg/dL (0.6-1.2); GLUCOSE 84 mg/dL (70-105); HDL -HIGH DENSITY LIPOPROTEIN 33 mg/dL (23-92); MAGNESIUM 1.9 mg/dL (1.9-2.7); POTASSIUM SERUM 3.2 mEq/L (3.5-5.1); SGOT 31 U/L (13-39); SGPT/ALT 21 U/L (7-52); SODIUM SERUM 143 mEq/L (136-145); TOTAL PROTEIN,SERUM 6.1 gm/dL (6.0-8.3); TRIGLYCERIDES 113 mg/dL (<150)
[2018-11-04] MEDS: Albuterol/Ipratropium Neb 3 ML AERS HHN SCH ×3 (06:44→19:12)
[2018-11-04] MEDS: Lactobacillus Rhamnosus GG 15 Billion CFU CAP.SPRINK PO SCH ×2 (09:03→17:01)
[2018-11-04] MEDS: Potassium Chloride 20 mEq ER Tab PO SCH (09:03)
[2018-11-04] MEDS: Aspirin 81mg Chewable Tab PO SCH (09:04)
[2018-11-04] MEDS: Multivitamin Tab PO SCH (09:05)
[2018-11-04] MEDS: Enoxaparin 40 mg/0.4 mL 0.4mL Syr SUBQ SCH ×2 (09:06→20:56)
--- NOTE | 2018-11-04 09:27 | Diagnostic Imaging Report ---
Exam: Portable chest x-ray HISTORY: Congestive heart failure Findings: Portable upright examination of chest at 0730 hours reviewed and compared to prior study of the 11/03/2018. The study again demonstrates NG tube with the tip in the stomach. Severe scoliosis thoracic spine again appreciated. Unchanged appearance of left basilar infiltrate and small effusion. IMPRESSION: Unchanged upper approximation 11/03/2018, mild left basilar infiltrate and effusion.
--- NOTE | 2018-11-04 09:31 | Diagnostic Imaging Report ---
Exam: KUB of the abdomen. HISTORY NG tube placement Findings: Portable supine examination of the abdomen at 2108 demonstrates NG tube in the stomach.
[2018-11-04] MEDS: Nitroglycerin 0.2 mg/hr Tdm TD SCH ×2 (10:20→10:26)
[2018-11-04] MEDS: Polyvinyl Alcohol Ophth Soln 15 mL Bottle EACH EYE SCH ×2 (10:29→17:02)
--- NOTE | 2018-11-04 15:14 | General Progress Note ---
Subjective - Review of Systems Service Date: 11/04/18 Subjective: Patient is still lethargic patient failed swallow eval Objective - Results Result Diagrams: 11/04/18 04:35 11/04/18 04:35 Recent Labs: Laboratory Last Values WBC 7.2 Th/cmm (4.8-10.8) 11/04/18 04:35 RBC 4.75 Mil/cmm (3.80-5.20) 11/04/18 04:35 Hgb 14.6 gm/dL (12-16) 11/04/18 04:35 Hct 44.4 % (41.0-60) 11/04/18 04:35 MCV 93.5 fl (81-100) 11/04/18 04:35 MCH 30.7 pg (27.0-31.0) 11/04/18 04:35 MCHC Differential 32.9 pg (28.0-36.0) 11/04/18 04:35 RDW 14.3 % (11.5-20.0) 11/04/18 04:35 Plt Count 293 Th/cmm (150-400) 11/04/18 04:35 MPV 7.8 fl 11/04/18 04:35 Neutrophils % 73.7 % (40.0-80.0) 11/04/18 04:35 Lymphocytes % 19.6 % (20.0-50.0) L 11/04/18 04:35 Monocytes % 5.8 % (2.0-10.0) 11/04/18 04:35 Eosinophils % 0.8 % (0.0-5.0) 11/04/18 04:35 Basophils % 0.1 % (0.0-2.0) 11/04/18 04:35 Sodium 143 mEq/L (136-145) 11/04/18 04:35 Potassium 3.2 mEq/L (3.5-5.1) L 11/04/18 04:35 Chloride 104 mEq/L (98-107) 11/04/18 04:35 Carbon Dioxide 30.3 mEq/L (21.0-31.0) 11/04/18 04:35 Anion Gap 11.9 (7.0-16.0) 11/04/18 04:35 BUN 18 mg/dL (7-25) 11/04/18 04:35 Creatinine 0.5 mg/dL (0.6-1.2) L 11/04/18 04:35 Est GFR ( Amer) TNP 11/04/18 04:35 Est GFR (Non-Af Amer) TNP 11/04/18 04:35 BUN/Creatinine Ratio 36.0 11/04/18 04:35 Glucose 84 mg/dL (70-105) 11/04/18 04:35 Calcium 8.6 mg/dL (8.6-10.3) 11/04/18 04:35 Magnesium 1.9 mg/dL (1.9-2.7) 11/04/18 04:35 Total Bilirubin 0.6 mg/dL (0.3-1.0) 11/04/18 04:35 AST 31 U/L (13-39) 11/04/18 04:35 ALT 21 U/L (7-52) 11/04/18 04:35 Alkaline Phosphatase 105 U/L (34-104) H 11/04/18 04:35 Troponin I 0.81 ng/mL (0.01-0.05) H* D 11/04/18 04:35 B-Natriuretic Peptide 891.0 pg/mL (5.0-100.0) H 11/03/18 04:45 Total Protein 6.1 gm/dL (6.0-8.3) 11/04/18 04:35 Albumin 3.0 gm/dL (3.7-5.3) L 11/04/18 04:35 Globulin 3.1 gm/dL 11/04/18 04:35 Albumin/Globulin Ratio 1.0 (1.0-1.8) 11/04/18 04:35 Triglycerides 113 mg/dL (<150) 11/04/18 04:35 Cholesterol 131 mg/dL (<200) 11/04/18 04:35 LDL Cholesterol Direct 72 mg/dL (75-193) L 11/04/18 04:35 HDL Cholesterol 33 mg/dL (23-92) 11/04/18 04:35 - Physical Exam Vitals and I&O: Vital Signs Temp 97.8 F 11/04/18 12:00 Pulse 93 11/04/18 15:00 Resp 24 11/04/18 15:00 BP 122/73 11/04/18 15:00 Pulse Ox 96 11/04/18 15:00 Intake & Output 11/03/18 11/04/18 11/04/18 18:59 06:59 18:59 Intake Total 150 Output Total 700 200 Balance -700 -50 Weight (lbs) 32.857 kg 34.019 kg Intake: Oral 150 Output: Urine 700 200 Other: # Bowel Movements 1 Stool Characteristics Soft Brown Weight Source Bedscale Bedscale Active Medications: Current Medications Acetaminophen (Tylenol) 325 mg PO Q4HR PRN PRN Reason: Pain (Mild) Stop: 01/02/19 08:58 Albuterol/Ipratropium (Duoneb Neb) 3 ml HHN [id number] [facility] Stop: 01/02/19 12:59 Last Admin: 11/04/18 12:33 Dose: 3 ml Albuterol/Ipratropium (Duoneb Neb) 3 ml HHN Q2H PRN PRN Reason: Wheezing Stop: 01/02/19 08:58 Artificial Tears (Artificial Tears Ophth Soln) 2 drop EACH EYE BID [facility] Stop: 01/02/19 08:59 Last Admin: 11/04/18 10:29 Dose: 2 drop Aspirin (Aspirin Chewable) 81 mg PO DAILY [facility] Stop: 01/02/19 09:14 Last Admin: 11/04/18 09:04 Dose: 81 mg Atorvastatin Calcium (Lipitor) 40 mg PO DAILY [facility]; Protocol Stop: 01/02/19 09:14 Last Admin: 11/04/18 09:03 Dose: 40 mg Bisacodyl (Dulcolax 10 Mg Supp) 10 mg RC Q2D PRN PRN Reason: Constipation Stop: 01/02/19 08:58 Carvedilol (Coreg) 3.125 mg PO BID [facility] Stop: 01/02/19 08:59 Last Admin: 11/04/18 09:03 Dose: 3.125 mg Donepezil HCl (Aricept) 10 mg PO HS [facility] Stop: 01/02/19 20:59 Last Admin: 11/03/18 20:12 Dose: 10 mg Enoxaparin Sodium (Lovenox) 40 mg SUBQ Q12HR [facility] Stop: 01/02/19 20:59 Last Admin: 11/04/18 09:06 Dose: 40 mg Furosemide (Lasix) 40 mg IVP DAILY [facility] Stop: 01/01/19 22:59 Last Admin: 11/04/18 09:05 Dose: 40 mg Gabapentin (Neurontin) 300 mg PO TID [facility] Stop: 01/02/19 08:59 Last Admin: 11/04/18 14:56 Dose: 300 mg Lactobacillus Rhamnosus (Culturelle 15b) 1 each PO BID [facility] Stop: 01/02/19 08:59 Last Admin: 11/04/18 09:03 Dose: 1 each Latanoprost (Xalatan 0.005% Ophth Soln) 1 drop EACH EYE HS [facility] Stop: 01/02/19 20:59 Last Admin: 11/03/18 20:14 Dose: 1 drop Lorazepam (Ativan) 0.5 mg PO Q4HR PRN; Protocol PRN Reason: Agitation Stop: 01/02/19 08:58 Last Admin: 11/03/18 10:53 Dose: 0.5 mg Losartan Potassium (Cozaar) 25 mg PO DAILY [facility] Stop: 01/02/19 08:59 Last Admin: 11/04/18 09:02 Dose: Not Given Memantine (Namenda) 5 mg PO DAILY [facility] Stop: 01/02/19 08:59 Last Admin: 11/04/18 09:02 Dose: 5 mg Mirtazapine (Remeron) 7.5 mg PO HS [facility]; Protocol Stop: 01/02/19 20:59 Last Admin: 11/03/18 20:12 Dose: 7.5 mg Miscellaneous (Vte Chemical Prophylaxis Screen/ Admission) 1 ea PRN PRN PRN Reason: PROTOCOL Stop: 01/02/19 09:23 Multivitamins/Vitamin C (Theragran) 1 tab PO DAILY [facility] Stop: 01/02/19 08:59 Last Admin: 11/04/18 09:05 Dose: 1 tab Nitroglycerin (Transderm-Nitro) 1 patch TD DAILY [facility] Stop: 01/02/19 08:59 Last Admin: 11/04/18 10:26 Dose: 1 patch Potassium Chloride (Klor-Con) 20 meq PO DAILY [facility] Stop: 01/02/19 08:59 Last Admin: 11/04/18 09:03 Dose: 20 meq Risperidone (Risperdal) 1 mg PO DAILY [facility]; Protocol Stop: 01/02/19 08:59 Last Admin: 11/04/18 09:00 Dose: Not Given Risperidone (Risperdal) 1 mg PO HS [facility]; Protocol Stop: 01/02/19 20:59 Senna (Senna) 8.6 mg PO BID [facility] Stop: 01/02/19 08:59 Last Admin: 11/04/18 09:02 Dose: 8.6 mg Sodium Phosphate (Fleet Enema) 135 ml RC Q2D PRN PRN Reason: IF DULCOLAX INEFFECTIVE Stop: 01/02/19 08:58 Trazodone HCl (Desyrel) 25 mg PO HS PRN; Protocol PRN Reason: Insomnia Stop: 01/02/19 08:58 General: No acute distress HEENT: Mucous membr. moist/pink Neck: Supple, JVD, +2 carotid pulse wo bruit (flight) Cardiovascular: Regular rate, Normal S1, Normal S2, Systolic murmurs Lungs: Clear to auscultation, Normal air movement Abdomen: Bowel sounds, Soft, Other (no organomegaly) Extremities: Edema (no edema) Neurological: Reflexes 2+ - Procedures Procedures: Procedures Procedure Code Date TRANSFUSE NONAUT RED BLOOD CELLS IN PERIPH VEIN, [facility] [id number] 10/28/18 Assessment/Plan - Assessment Assessment: Non-Q-wave myocardial infarction Congestive heart failure systolic dysfunction acute Cardiomyopathy Major depression Schizoaffective disorder Dementia Osteoporosis Dysphagia protein calorie malnutrition Urinary tract infection - Plan Plan: Continue present management patient to have anticoagulation Nutritional Asmnt/Malnutr-PDOC - Dietary Evaluation Malnutrition Findings (Please click <Entered> for more info): Nutritional Asmnt/Malnutrition Start: 11/03/18 15: 31 Text: Status: Active Freq: Protocol: Document 11/03/18 15:31 MBON (Rec: 11/03/18 16:02 [email or web address] [id number]) Nutritional Asmnt/Malnutrition Patient General Information Nutritional Screening High Risk Diagnosis NON Q-Wave OK Pertinent Medical Hx/Surgical Hx Dementia, Deperssion, HTN, Degenerative joihnt disease, HX of recurrent UTI Subjective Information A 88 years old female was admitted from snf d/t Non Q-WAVE OK. Per chart, Pt is currently on NPO d/t swallow eval. Current Diet Order/ Nutrition Support NPO Pertinent Medications Lipitor, Dulcolax, Lovenox, Lasix, Cultreelle, Cozaar, Remeron, Theragran, Senna, Fleet Enema Pertinent Labs 11/03 POTASS 2.9, Cr 0.5, Alb 3 .3 Nutritional Hx/Data Height 1.5 m Height (Calculated Centimeters) 149.9 Current Weight (lbs) 36.287 kg Weight (Calculated Kilograms) 36.3 Weight (Calculated Grams) 99699.4 [place] Body Weight 43.2 kg Body Mass Index (BMI) 16.1 Weight Status Underweight GI Symptoms GI Symptoms None Last BM 11/03 Skin Integrity/Comment: Anthony 13, Discoloration on right wrist amd right hand, reddened on sacral Current %PO Negligible < 25% Estimated Nutritional Goals BEE in Kcals: Adj wt of IBW Calories/Kcals/Kg 30-35 Kcal/kg Kcals Calculated 6301-9083 Kcal Protein: Adj wt of IBW Protein g/k-1.2 g/kg Protein Calculated 40-48 g Fluid: ml 4085-8269 ml (1ml/Kcal) Nutritional Problem 1. Problem Problem Inadequate Oral Intake Etiology Swallow Eval Signs/Symptoms: NPO status Malnutrition Related to Morbid Obesity Malnutrition related to morbid obesity No Intervention/Recommendation Comments 1. Monitor NPO status, wt, labs and skin integrity 2. F/U as high risk in 1-2 days Expected Outcomes/Goals Expected Outcomes/Goals 1. PO intake to meet at least 75% of nutritional needs. 2. Wt stability, skin to remain intact, labs to approach WNL.
[2018-11-05 05:06] LABS: % BASOPHILS 0.1 % (0.0-2.0); % EOSINOPHILS 0.6 % (0.0-5.0); % LYMPHOCYTES 15.1 % (20.0-50.0); % MONOCYTES 3.7 % (2.0-10.0); % NEUTROPHILS 80.5 % (40.0-80.0); EOSINOPHILE ABSOLUTE 0.1 Th/cmm (0.1-0.4); HEMATOCRIT 44.1 % (41.0-60); HEMOGLOBIN 14.7 gm/dL (12-16); LYMPHOCYTE ABSOLUTE 1.4 Th/cmm (1.5-3.0); MEAN CELL VOLUME 93.5 fl (81-100); MEAN CORPUSCULAR HEMOGLOBIN 31.1 pg (27.0-31.0); MEAN CORPUSCULAR HGB CONC 33.3 pg (28.0-36.0); MONOCYTE ABSOLUTE 0.4 Th/cmm (0.3-1.0); NEUTROPHILE ABSOLUTE 7.6 Th/cmm (1.8-8.0); PLATELET COUNT 272 Th/cmm (150-400); RED BLOOD COUNT 4.72 Mil/cmm (3.80-5.20); RED CELL DISTRIBUTION WIDTH 14.2 % (11.5-20.0); WHITE BLOOD COUNT 9.5 Th/cmm (4.8-10.8)
[2018-11-05 05:37] LABS: ALKALINE PHOSPHATASE 108 U/L (34-104); ANION GAP 12.2 (7.0-16.0); BILIRUBIN,TOTAL 0.6 mg/dL (0.3-1.0); BUN - UREA NITROGEN 23 mg/dL (7-25); CALCIUM SERUM 8.5 mg/dL (8.6-10.3); CARBON DIOXIDE 28.9 mEq/L (21.0-31.0); CHLORIDE 98 mEq/L (98-107); CREATININE - SERUM 0.5 mg/dL (0.6-1.2); GLUCOSE 104 mg/dL (70-105); MAGNESIUM 1.8 mg/dL (1.9-2.7); POTASSIUM SERUM 3.1 mEq/L (3.5-5.1); SGOT 28 U/L (13-39); SGPT/ALT 21 U/L (7-52); SODIUM SERUM 136 mEq/L (136-145); TOTAL PROTEIN,SERUM 6.1 gm/dL (6.0-8.3)
[2018-11-05] MEDS: Albuterol/Ipratropium Neb 3 ML AERS HHN SCH ×3 (06:47→18:59)
[2018-11-05] MEDS: Potassium Chloride 20 mEq ER Tab PO SCH (08:57)
[2018-11-05] MEDS: Lactobacillus Rhamnosus GG 15 Billion CFU CAP.SPRINK PO SCH ×2 (08:57→16:51)
[2018-11-05] MEDS: Aspirin 81mg Chewable Tab PO SCH (08:57)
[2018-11-05] MEDS: Multivitamin Tab PO SCH (08:57)
[2018-11-05] MEDS: Nitroglycerin 0.2 mg/hr Tdm TD SCH (08:58)
[2018-11-05] MEDS: Enoxaparin 40 mg/0.4 mL 0.4mL Syr SUBQ SCH ×2 (09:01→21:02)
[2018-11-05] MEDS: Polyvinyl Alcohol Ophth Soln 15 mL Bottle EACH EYE SCH ×2 (09:03→16:50)
--- NOTE | 2018-11-05 10:38 | Diagnostic Imaging Report ---
Exam: Portable chest x-ray HISTORY: NG tube placement Findings: Portable examination of the chest at 1010 reviewed demonstrates NG tube in the stomach.
--- NOTE | 2018-11-05 11:58 | Progress Notes ---
DATE: IDENTIFICATION: An 88-year-old female. SUBJECTIVE: The patient is seen and examined. The patient is lying in the bed. The patient has NG tube now. The patient is currently very calm, hemodynamically stable. Discussed with nursing staff about her concern. The patient is not following any command at this time. OBJECTIVE: VITAL SIGNS: Temperature 97.8, pulse is 84, respiratory rate 18, blood pressure 146/82, O2 sat 96%. Medication admission record is reviewed. HEENT: Nasogastric tube noted. NECK: Supple, no JVD. HEART: Regular. LUNGS: Clear to auscultate. ABDOMEN: Soft. No guarding, no rigidity. Bowel sounds present. No palpable mass. EXTREMITIES: No edema. CLINICAL IMPRESSION: 1. Acute respiratory failure. 2. Elevated troponin, resolving, mostly from non-Q wave myocardial infarction. 3. Hypertension. 4. Psychotic disorder. 5. Dementia. 6. Degenerative joint disease. PLAN: The patient to ____ patient with ____ for now. Continue to provide symptomatic therapy, medical management for coronary artery disease and psychotic evaluation deferred to psychiatrist. Follow seo professional recommendations. Continue the medication for underlying chronic illness. A 2D echocardiogram is currently ordered, which is pending. We will give further recommendations once the other labs are available. The patient's care plan has been reviewed and discussed. [facility]# [id number]
--- NOTE | 2018-11-05 14:14 | General Progress Note ---
Subjective - Review of Systems Service Date: 11/05/18 Subjective: Patient is still lethargic patient failed swallow eval Objective - Results Result Diagrams: 11/05/18 04:40 11/05/18 04:40 Recent Labs: Laboratory Last Values WBC 9.5 Th/cmm (4.8-10.8) 11/05/18 04:40 RBC 4.72 Mil/cmm (3.80-5.20) 11/05/18 04:40 Hgb 14.7 gm/dL (12-16) 11/05/18 04:40 Hct 44.1 % (41.0-60) 11/05/18 04:40 MCV 93.5 fl (81-100) 11/05/18 04:40 MCH 31.1 pg (27.0-31.0) H 11/05/18 04:40 MCHC Differential 33.3 pg (28.0-36.0) 11/05/18 04:40 RDW 14.2 % (11.5-20.0) 11/05/18 04:40 Plt Count 272 Th/cmm (150-400) 11/05/18 04:40 MPV 8.3 fl 11/05/18 04:40 Neutrophils % 80.5 % (40.0-80.0) H 11/05/18 04:40 Lymphocytes % 15.1 % (20.0-50.0) L 11/05/18 04:40 Monocytes % 3.7 % (2.0-10.0) 11/05/18 04:40 Eosinophils % 0.6 % (0.0-5.0) 11/05/18 04:40 Basophils % 0.1 % (0.0-2.0) 11/05/18 04:40 Sodium 136 mEq/L (136-145) 11/05/18 04:40 Potassium 3.1 mEq/L (3.5-5.1) L 11/05/18 04:40 Chloride 98 mEq/L (98-107) 11/05/18 04:40 Carbon Dioxide 28.9 mEq/L (21.0-31.0) 11/05/18 04:40 Anion Gap 12.2 (7.0-16.0) 11/05/18 04:40 BUN 23 mg/dL (7-25) 11/05/18 04:40 Creatinine 0.5 mg/dL (0.6-1.2) L 11/05/18 04:40 Est GFR ( Amer) TNP 11/05/18 04:40 Est GFR (Non-Af Amer) TNP 11/05/18 04:40 BUN/Creatinine Ratio 46.0 11/05/18 04:40 Glucose 104 mg/dL (70-105) 11/05/18 04:40 Calcium 8.5 mg/dL (8.6-10.3) L 11/05/18 04:40 Magnesium 1.8 mg/dL (1.9-2.7) L 11/05/18 04:40 Total Bilirubin 0.6 mg/dL (0.3-1.0) 11/05/18 04:40 AST 28 U/L (13-39) 11/05/18 04:40 ALT 21 U/L (7-52) 11/05/18 04:40 Alkaline Phosphatase 108 U/L (34-104) H 11/05/18 04:40 Troponin I 0.42 ng/mL (0.01-0.05) H* D 11/05/18 04:40 B-Natriuretic Peptide 509.0 pg/mL (5.0-100.0) H 11/05/18 04:40 Total Protein 6.1 gm/dL (6.0-8.3) 11/05/18 04:40 Albumin 3.0 gm/dL (3.7-5.3) L 11/05/18 04:40 Globulin 3.1 gm/dL 11/05/18 04:40 Albumin/Globulin Ratio 1.0 (1.0-1.8) 11/05/18 04:40 Triglycerides 113 mg/dL (<150) 11/04/18 04:35 Cholesterol 131 mg/dL (<200) 11/04/18 04:35 LDL Cholesterol Direct 72 mg/dL (75-193) L 11/04/18 04:35 HDL Cholesterol 33 mg/dL (23-92) 11/04/18 04:35 - Physical Exam Vitals and I&O: Vital Signs Temp 97.8 F 11/05/18 12:00 Pulse 57 11/05/18 12:33 Resp 18 11/05/18 12:33 BP 100/51 11/05/18 12:00 Pulse Ox 96 11/05/18 12:33 Intake & Output 11/04/18 11/05/18 11/05/18 18:59 06:59 18:59 Intake Total 800 550 Output Total 700 200 Balance 100 350 Weight (lbs) 35.182 kg 34.927 kg Intake: Oral 0 Tube Feeding 400 400 Other 400 150 Output: Urine 700 200 Other: # Bowel Movements 0 0 Weight Source Bedscale Bedscale Active Medications: Current Medications Acetaminophen (Tylenol) 325 mg PO Q4HR PRN PRN Reason: Pain (Mild) Stop: 01/02/19 08:58 Albuterol/Ipratropium (Duoneb Neb) 3 ml HHN [id number] [facility] Stop: 01/02/19 12:59 Last Admin: 11/05/18 12:32 Dose: 3 ml Albuterol/Ipratropium (Duoneb Neb) 3 ml HHN Q2H PRN PRN Reason: Wheezing Stop: 01/02/19 08:58 Artificial Tears (Artificial Tears Ophth Soln) 2 drop EACH EYE BID [facility] Stop: 01/02/19 08:59 Last Admin: 11/05/18 09:03 Dose: 2 drop Aspirin (Aspirin Chewable) 81 mg PO DAILY [facility] Stop: 01/02/19 09:14 Last Admin: 11/05/18 08:57 Dose: 81 mg Atorvastatin Calcium (Lipitor) 40 mg PO DAILY [facility]; Protocol Stop: 01/02/19 09:14 Last Admin: 11/05/18 08:56 Dose: 40 mg Bisacodyl (Dulcolax 10 Mg Supp) 10 mg RC Q2D PRN PRN Reason: Constipation Stop: 01/02/19 08:58 Carvedilol (Coreg) 3.125 mg PO BID [facility] Stop: 01/02/19 08:59 Last Admin: 11/05/18 08:57 Dose: 3.125 mg Donepezil HCl (Aricept) 10 mg PO HS [facility] Stop: 01/02/19 20:59 Last Admin: 11/04/18 20:58 Dose: 10 mg Enoxaparin Sodium (Lovenox) 40 mg SUBQ Q12HR [facility] Stop: 01/02/19 20:59 Last Admin: 11/05/18 09:01 Dose: 40 mg Furosemide (Lasix) 40 mg IVP DAILY [facility] Stop: 01/01/19 22:59 Last Admin: 11/05/18 08:58 Dose: 40 mg Gabapentin (Neurontin) 300 mg PO TID [facility] Stop: 01/02/19 08:59 Last Admin: 11/05/18 13:27 Dose: 300 mg Lactobacillus Rhamnosus (Culturelle 15b) 1 each PO BID [facility] Stop: 01/02/19 08:59 Last Admin: 11/05/18 08:57 Dose: 1 each Latanoprost (Xalatan 0.005% Ophth Soln) 1 drop EACH EYE HS [facility] Stop: 01/02/19 20:59 Last Admin: 11/04/18 20:58 Dose: 1 drop Lorazepam (Ativan) 0.5 mg PO Q4HR PRN; Protocol PRN Reason: Agitation Stop: 01/02/19 08:58 Last Admin: 11/03/18 10:53 Dose: 0.5 mg Losartan Potassium (Cozaar) 25 mg PO DAILY [facility] Stop: 01/02/19 08:59 Last Admin: 11/05/18 09:03 Dose: Not Given Memantine (Namenda) 5 mg PO DAILY [facility] Stop: 01/02/19 08:59 Last Admin: 11/05/18 08:57 Dose: 5 mg Mirtazapine (Remeron) 7.5 mg PO HS [facility]; Protocol Stop: 01/02/19 20:59 Last Admin: 11/04/18 20:58 Dose: 7.5 mg Miscellaneous (Vte Chemical Prophylaxis Screen/ Admission) 1 ea MC PRN PRN PRN Reason: PROTOCOL Stop: 01/02/19 09:23 Multivitamins/Vitamin C (Theragran) 1 tab PO DAILY [facility] Stop: 01/02/19 08:59 Last Admin: 11/05/18 08:57 Dose: 1 tab Nitroglycerin (Transderm-Nitro) 1 patch TD DAILY [facility] Stop: 01/02/19 08:59 Last Admin: 11/05/18 08:58 Dose: 1 patch Potassium Chloride (Klor-Con) 20 meq PO DAILY [facility] Stop: 01/02/19 08:59 Last Admin: 11/05/18 08:57 Dose: 20 meq Risperidone (Risperdal) 1 mg PO DAILY [facility]; Protocol Stop: 01/02/19 08:59 Last Admin: 11/05/18 08:57 Dose: 1 mg Risperidone (Risperdal) 1 mg PO HS [facility]; Protocol Stop: 01/02/19 20:59 Last Admin: 11/04/18 21:00 Dose: Not Given Senna (Senna) 8.6 mg PO BID [facility] Stop: 01/02/19 08:59 Last Admin: 11/05/18 08:57 Dose: 8.6 mg Sodium Phosphate (Fleet Enema) 135 ml RC Q2D PRN PRN Reason: IF DULCOLAX INEFFECTIVE Stop: 01/02/19 08:58 Trazodone HCl (Desyrel) 25 mg PO HS PRN; Protocol PRN Reason: Insomnia Stop: 01/02/19 08:58 General: No acute distress HEENT: Mucous membr. moist/pink Neck: Supple, JVD, +2 carotid pulse wo bruit (flight) Cardiovascular: Regular rate, Normal S1, Normal S2, Systolic murmurs Lungs: Clear to auscultation, Normal air movement Abdomen: Bowel sounds, Soft, Other (no organomegaly) Extremities: Edema (no edema) Neurological: Reflexes 2+ - Procedures Procedures: Procedures Procedure Code Date TRANSFUSE NONAUT RED BLOOD CELLS IN PERIPH VEIN, PERC 60907G9 10/28/18 Assessment/Plan - Assessment Assessment: Non-Q-wave myocardial infarction Congestive heart failure systolic dysfunction acute Cardiomyopathy Major depression Schizoaffective disorder Dementia Osteoporosis Dysphagia protein calorie malnutrition Urinary tract infection - Plan Plan: Continue present management patient to have anticoagulation Nutritional Asmnt/Malnutr-PDOC - Dietary Evaluation Malnutrition Findings (Please click <Entered> for more info): Nutritional Asmnt/Malnutrition Start: 11/03/18 15: 31 Text: Status: Active Freq: Protocol: Document 11/03/18 15:31 MBONUS (Rec: 11/03/18 16:02 [email or web address]) Nutritional Asmnt/Malnutrition Patient General Information Nutritional Screening High Risk Diagnosis NON Q-Wave [place] Pertinent Medical Hx/Surgical Hx Dementia, Deperssion, HTN, Degenerative joihnt disease, HX of recurrent UTI Subjective Information A 88 years old female was [facility] d/t Non Q-WAVE [place]. Per chart, Pt is currently on NPO d/t swallow eval. Current Diet Order/ Nutrition Support NPO Pertinent Medications Lipitor, Dulcolax, Lovenox, Lasix, Cultreelle, Cozaar, Remeron, Theragran, Senna, Fleet Enema Pertinent Labs 11/03 POTASS 2.9, Cr 0.5, Alb 3 .3 Nutritional Hx/Data Height 1.5 m Height (Calculated Centimeters) 149.9 Current Weight (lbs) 36.287 kg Weight (Calculated Kilograms) 36.3 Weight (Calculated Grams) 34311.4 [place] Body Weight 43.2 kg Body Mass Index (BMI) 16.1 Weight Status Underweight GI Symptoms GI Symptoms None Last BM 11/03 Skin Integrity/Comment: Anthony 13, Discoloration on right wrist amd right hand, reddened on sacral Current %PO Negligible < 25% Estimated Nutritional Goals BEE in Kcals: Adj wt of IBW Calories/Kcals/Kg 30-35 Kcal/kg Kcals Calculated 7339-4820 Kcal Protein: Adj wt of IBW Protein g/k-1.2 g/kg Protein Calculated 40-48 g Fluid: ml 0692-9009 ml (1ml/Kcal) Nutritional Problem 1. Problem Problem Inadequate Oral Intake Etiology Swallow Eval Signs/Symptoms: NPO status Malnutrition Related to Morbid Obesity Malnutrition related to morbid obesity No Intervention/Recommendation Comments 1. Monitor NPO status, wt, labs and skin integrity 2. F/U as high risk in 1-2 days Expected Outcomes/Goals Expected Outcomes/Goals 1. PO intake to meet at least 75% of nutritional needs. 2. Wt stability, skin to remain intact, labs to approach WNL.
--- NOTE | 2018-11-06 00:14 | Progress Notes ---
DATE: IDENTIFICATION: An 88-year-old female. SUBJECTIVE: The patient seen and examined. The patient is lying in the bed. The patient was agitated earlier. Currently, the patient is sleeping comfortably, tolerating tube feeding fairly well. PHYSICAL EXAMINATION: VITAL SIGNS: Temperature 97.8, pulse 57, respiratory rate is 18, blood pressure 100/50. HEENT: No facial asymmetry. Nasogastric tube noted. NECK: Supple. HEART: Regular. CHEST AND LUNGS: Equal in expansion with no expiratory wheezing. ABDOMEN: Soft. No guarding, no rigidity. Bowel sounds are present. No palpable mass. EXTREMITIES: No edema. AVAILABLE DIAGNOSTIC DATA: BNP is 509. Troponin is 0.42, creatinine is normal. CBC is also normal. CLINICAL IMPRESSION: 1. Pulmonary edema. 2. Non-Q-wave myocardial infarction. 3. Hypertension. 4. Dementia. 5. Degenerative joint disease. 6. Left ventricular hypertrophy. 7. Cardiomyopathy. 8. Congestive heart failure. PLAN: The patient' daughter has been informed about her current conditions and treatment plan. According to the patient's daughter, does not want to do an aggressive therapy. We will continue to treat this patient medically and we will continue medical management for coronary artery disease and congestive heart failure. For now, we will maximize the cardiopulmonary status with the medication management. We will also follow mgmt consultant's recommendation as well. Follow up lab will be done. Care plan has been reviewed and discussed with the staff. JOB# [id number]
[2018-11-06 05:34] LABS: HEMATOCRIT 43.9 % (41.0-60); HEMOGLOBIN 14.7 gm/dL (12-16); MEAN CELL VOLUME 92.1 fl (81-100); MEAN CORPUSCULAR HEMOGLOBIN 30.8 pg (27.0-31.0); MEAN CORPUSCULAR HGB CONC 33.5 pg (28.0-36.0); PLATELET COUNT 287 Th/cmm (150-400); RED BLOOD COUNT 4.76 Mil/cmm (3.80-5.20); RED CELL DISTRIBUTION WIDTH 14.1 % (11.5-20.0)
[2018-11-06 05:48] LABS: ANION GAP 12.6 (7.0-16.0); BUN - UREA NITROGEN 27 mg/dL (7-25); CALCIUM SERUM 8.7 mg/dL (8.6-10.3); CARBON DIOXIDE 30.5 mEq/L (21.0-31.0); CHLORIDE 97 mEq/L (98-107); CREATININE - SERUM 0.5 mg/dL (0.6-1.2); GLUCOSE 136 mg/dL (70-105); MAGNESIUM 1.8 mg/dL (1.9-2.7); POTASSIUM SERUM 3.1 mEq/L (3.5-5.1); SODIUM SERUM 137 mEq/L (136-145)
[2018-11-06 05:50] LABS: WHITE BLOOD COUNT 16.2 Th/cmm (4.8-10.8)
[2018-11-06 07:18] LABS: BAND NEUTROPHILE 0 % (0-10); BASOPHIL 0 % (0-3); EOSINOPHIL 1 % (0-5); LYMPHOCYTE 7 % (20-50); MONOCYTE 3 % (2-10); NEUTROPHILS 89 % (40-80)
[2018-11-06] MEDS: Albuterol/Ipratropium Neb 3 ML AERS HHN SCH ×3 (08:03→18:40)
[2018-11-06] MEDS ORDERED: Potassium Chloride 20 mEq ER Tab PO ONE (09:07)
[2018-11-06] MEDS: Multivitamin Tab PO SCH (10:00)
[2018-11-06] MEDS: Lactobacillus Rhamnosus GG 15 Billion CFU CAP.SPRINK PO SCH ×2 (10:00→17:13)
[2018-11-06] MEDS: Aspirin 81mg Chewable Tab PO SCH (10:01)
[2018-11-06] MEDS: Nitroglycerin 0.2 mg/hr Tdm TD SCH (10:02)
[2018-11-06] MEDS: Polyvinyl Alcohol Ophth Soln 15 mL Bottle EACH EYE SCH ×2 (10:05→17:46)
[2018-11-06] MEDS: Enoxaparin 40 mg/0.4 mL 0.4mL Syr SUBQ SCH ×2 (10:08→21:11)
[2018-11-06] MEDS: Potassium Chloride 20 mEq ER Tab PO SCH (10:22)
--- NOTE | 2018-11-06 10:47 | General Progress Note ---
Subjective - Review of Systems Service Date: 11/06/18 Subjective: Patient is still lethargic patient failed swallow eval Objective - Results Result Diagrams: 11/06/18 04:05 11/06/18 04:05 Recent Labs: Laboratory Last Values WBC 16.2 Th/cmm (4.8-10.8) H D 11/06/18 04:05 RBC 4.76 Mil/cmm (3.80-5.20) 11/06/18 04:05 Hgb 14.7 gm/dL (12-16) 11/06/18 04:05 Hct 43.9 % (41.0-60) 11/06/18 04:05 MCV 92.1 fl (81-100) 11/06/18 04:05 MCH 30.8 pg (27.0-31.0) 11/06/18 04:05 MCHC Differential 33.5 pg (28.0-36.0) 11/06/18 04:05 RDW 14.1 % (11.5-20.0) 11/06/18 04:05 Plt Count 287 Th/cmm (150-400) 11/06/18 04:05 MPV 8.7 fl 11/06/18 04:05 Add Manual Diff 11/06/18 04:05 Neutrophils % 80.5 % (40.0-80.0) H 11/05/18 04:40 Band Neutrophils % 0 % (0-10) 11/06/18 04:05 Lymphocytes % 15.1 % (20.0-50.0) L 11/05/18 04:40 Monocytes % 3.7 % (2.0-10.0) 11/05/18 04:40 Eosinophils % 0.6 % (0.0-5.0) 11/05/18 04:40 Basophils % 0.1 % (0.0-2.0) 11/05/18 04:40 Neutrophils (Manual) 89 % (40-80) H 11/06/18 04:05 Lymphocytes 7 % (20-50) L 11/06/18 04:05 Monocytes 3 % (2-10) 11/06/18 04:05 Eosinophils 1 % (0-5) 11/06/18 04:05 Basophils 0 % (0-3) 11/06/18 04:05 Sodium 137 mEq/L (136-145) 11/06/18 04:05 Potassium 3.1 mEq/L (3.5-5.1) L 11/06/18 04:05 Chloride 97 mEq/L (98-107) L 11/06/18 04:05 Carbon Dioxide 30.5 mEq/L (21.0-31.0) 11/06/18 04:05 Anion Gap 12.6 (7.0-16.0) 11/06/18 04:05 BUN 27 mg/dL (7-25) H 11/06/18 04:05 Creatinine 0.5 mg/dL (0.6-1.2) L 11/06/18 04:05 Est GFR ( Amer) TNP 11/06/18 04:05 Est GFR (Non-Af Amer) TNP 11/06/18 04:05 BUN/Creatinine Ratio 54.0 11/06/18 04:05 Glucose 136 mg/dL (70-105) H 11/06/18 04:05 Calcium 8.7 mg/dL (8.6-10.3) 11/06/18 04:05 Magnesium 1.8 mg/dL (1.9-2.7) L 11/06/18 04:05 Total Bilirubin 0.6 mg/dL (0.3-1.0) 11/05/18 04:40 AST 28 U/L (13-39) 11/05/18 04:40 ALT 21 U/L (7-52) 11/05/18 04:40 Alkaline Phosphatase 108 U/L (34-104) H 11/05/18 04:40 Troponin I 0.39 ng/mL (0.01-0.05) H* 11/06/18 04:05 B-Natriuretic Peptide 509.0 pg/mL (5.0-100.0) H 11/05/18 04:40 Total Protein 6.1 gm/dL (6.0-8.3) 11/05/18 04:40 Albumin 3.0 gm/dL (3.7-5.3) L 11/05/18 04:40 Globulin 3.1 gm/dL 11/05/18 04:40 Albumin/Globulin Ratio 1.0 (1.0-1.8) 11/05/18 04:40 Triglycerides 113 mg/dL (<150) 11/04/18 04:35 Cholesterol 131 mg/dL (<200) 11/04/18 04:35 LDL Cholesterol Direct 72 mg/dL (75-193) L 11/04/18 04:35 HDL Cholesterol 33 mg/dL (23-92) 11/04/18 04:35 - Physical Exam Vitals and I&O: Vital Signs Temp 98.1 F 11/06/18 04:00 Pulse 110 11/06/18 10:02 Resp 20 11/06/18 07:40 BP 153/100 11/06/18 10:02 Pulse Ox 97 11/06/18 07:40 Intake & Output 11/05/18 11/06/18 11/06/18 18:59 06:59 18:59 Intake Total 520 800 Output Total 650 350 Balance -130 450 Weight (lbs) 34.927 kg 34.927 kg Intake: Tube Feeding 400 400 Other 120 400 Output: Urine 650 350 Other: # Bowel Movements 1 1 Weight Source Bedscale Bedscale Active Medications: Current Medications Acetaminophen (Tylenol) 325 mg PO Q4HR PRN PRN Reason: Pain (Mild) Stop: 01/02/19 08:58 Last Admin: 11/05/18 20:13 Dose: 325 mg Albuterol/Ipratropium (Duoneb Neb) 3 ml HHN [id number] [facility] Stop: 01/02/19 12:59 Last Admin: 11/06/18 08:03 Dose: 3 ml Albuterol/Ipratropium (Duoneb Neb) 3 ml HHN Q2H PRN PRN Reason: Wheezing Stop: 01/02/19 08:58 Artificial Tears (Artificial Tears Ophth Soln) 2 drop EACH EYE BID [facility] Stop: 01/02/19 08:59 Last Admin: 11/06/18 10:05 Dose: 2 drop Aspirin (Aspirin Chewable) 81 mg PO DAILY [facility] Stop: 01/02/19 09:14 Last Admin: 11/06/18 10:01 Dose: 81 mg Atorvastatin Calcium (Lipitor) 40 mg PO DAILY [facility]; Protocol Stop: 01/02/19 09:14 Last Admin: 11/06/18 10:00 Dose: 40 mg Bisacodyl (Dulcolax 10 Mg Supp) 10 mg RC Q2D PRN PRN Reason: Constipation Stop: 01/02/19 08:58 Carvedilol (Coreg) 3.125 mg PO BID [facility] Stop: 01/02/19 08:59 Last Admin: 11/06/18 10:01 Dose: 3.125 mg Donepezil HCl (Aricept) 10 mg PO HS [facility] Stop: 01/02/19 20:59 Last Admin: 11/05/18 21:09 Dose: 10 mg Enoxaparin Sodium (Lovenox) 40 mg SUBQ Q12HR [facility] Stop: 01/02/19 20:59 Last Admin: 11/06/18 10:08 Dose: 40 mg Furosemide (Lasix) 40 mg IVP DAILY [facility] Stop: 01/01/19 22:59 Last Admin: 11/06/18 09:59 Dose: 40 mg Gabapentin (Neurontin) 300 mg PO TID [facility] Stop: 01/02/19 08:59 Last Admin: 11/06/18 10:02 Dose: 300 mg Lactobacillus Rhamnosus (Culturelle 15b) 1 each PO BID [facility] Stop: 01/02/19 08:59 Last Admin: 11/06/18 10:00 Dose: 1 each Latanoprost (Xalatan 0.005% [facility] Soln) 1 drop EACH EYE HS [facility] Stop: 01/02/19 20:59 Last Admin: 11/05/18 21:18 Dose: 1 drop Lorazepam (Ativan) 0.5 mg PO Q4HR PRN; Protocol PRN Reason: Agitation Stop: 01/02/19 08:58 Last Admin: 11/03/18 10:53 Dose: 0.5 mg Losartan Potassium (Cozaar) 25 mg PO DAILY [facility] Stop: 01/02/19 08:59 Last Admin: 11/06/18 10:00 Dose: 25 mg Memantine (Namenda) 5 mg PO DAILY [facility] Stop: 01/02/19 08:59 Last Admin: 11/06/18 10:02 Dose: 5 mg Mirtazapine (Remeron) 7.5 mg PO HS [facility]; Protocol Stop: 01/02/19 20:59 Last Admin: 11/05/18 21:02 Dose: 7.5 mg Miscellaneous (Vte Chemical Prophylaxis Screen/ Admission) 1 ea PRN PRN PRN Reason: PROTOCOL Stop: 01/02/19 09:23 Multivitamins/Vitamin C (Theragran) 1 tab PO DAILY [facility] Stop: 01/02/19 08:59 Last Admin: 11/06/18 10:00 Dose: 1 tab Nitroglycerin (Transderm-Nitro) 1 patch TD DAILY [facility] Stop: 01/02/19 08:59 Last Admin: 11/06/18 10:02 Dose: 1 patch Potassium Chloride (Klor-Con) 20 meq PO DAILY [facility] Stop: 01/02/19 08:59 Last Admin: 11/06/18 10:22 Dose: 20 meq Risperidone (Risperdal) 1 mg PO DAILY [facility]; Protocol Stop: 01/02/19 08:59 Last Admin: 11/06/18 10:05 Dose: 1 mg Risperidone (Risperdal) 1 mg PO HS [facility]; Protocol Stop: 01/02/19 20:59 Last Admin: 11/05/18 21:03 Dose: 1 mg Senna (Senna) 8.6 mg PO BID [facility] Stop: 01/02/19 08:59 Last Admin: 11/06/18 10:02 Dose: 8.6 mg Sodium Phosphate (Fleet Enema) 135 ml RC Q2D PRN PRN Reason: IF DULCOLAX INEFFECTIVE Stop: 01/02/19 08:58 Trazodone HCl (Desyrel) 25 mg PO HS PRN; Protocol PRN Reason: Insomnia Stop: 01/02/19 08:58 General: No acute distress HEENT: Mucous membr. moist/pink Neck: Supple, JVD, +2 carotid pulse wo bruit (flight) Cardiovascular: Regular rate, Normal S1, Normal S2, Systolic murmurs Lungs: Clear to auscultation, Normal air movement Abdomen: Bowel sounds, Soft, Other (no organomegaly) Extremities: Edema (no edema) Neurological: Reflexes 2+ - Procedures Procedures: Procedures Procedure Code Date TRANSFUSE NONAUT RED BLOOD CELLS IN PERIPH VEIN, PERC 99843K6 10/28/18 Assessment/Plan - Assessment Assessment: Non-Q-wave myocardial infarction Congestive heart failure systolic dysfunction acute Cardiomyopathy Major depression Schizoaffective disorder Dementia Osteoporosis Dysphagia protein calorie malnutrition Urinary tract infection - Plan Plan: Continue present management patient to have anticoagulation Nutritional Asmnt/Malnutr-PDOC - Dietary Evaluation Malnutrition Findings (Please click <Entered> for more info): Nutritional Asmnt/Malnutrition Start: 11/03/18 15: 31 Text: Status: Active Freq: Protocol: Document 11/03/18 15:31 REA (Rec: 11/03/18 16:02 CLAUDETTE [email or web address]) Nutritional Asmnt/Malnutrition Patient General Information Nutritional Screening High Risk Diagnosis NON Q-Wave [place] Pertinent Medical Hx/Surgical Hx Dementia, Deperssion, HTN, Degenerative joihnt disease, HX of recurrent UTI Subjective Information A 88 years old female was admitted from long-term d/t Non Q-WAVE [place]. Per chart, Pt is currently on NPO d/t swallow eval. Current Diet Order/ Nutrition Support NPO Pertinent Medications Lipitor, Dulcolax, Lovenox, Lasix, Cultreelle, Cozaar, Remeron, Theragran, Senna, Fleet Enema Pertinent Labs 11/03 POTASS 2.9, Cr 0.5, Alb 3 .3 Nutritional Hx/Data Height 1.5 m Height (Calculated Centimeters) 149.9 Current Weight (lbs) 36.287 kg Weight (Calculated Kilograms) 36.3 Weight (Calculated Grams) 63979.4 [place] Body Weight 43.2 kg Body Mass Index (BMI) 16.1 Weight Status Underweight GI Symptoms GI Symptoms None Last BM 11/03 Skin Integrity/Comment: Anthony 13, Discoloration on right wrist amd right hand, reddened on sacral Current %PO Negligible < 25% Estimated Nutritional Goals BEE in Kcals: Adj wt of IBW Calories/Kcals/Kg 30-35 Kcal/kg Kcals Calculated 6271-2206 Kcal Protein: Adj wt of IBW Protein g/k-1.2 g/kg Protein Calculated 40-48 g Fluid: ml 9928-5803 ml (1ml/Kcal) Nutritional Problem 1. Problem Problem Inadequate Oral Intake Etiology Swallow Eval Signs/Symptoms: NPO status Malnutrition Related to Morbid Obesity Malnutrition related to morbid obesity No Intervention/Recommendation Comments 1. Monitor NPO status, wt, labs and skin integrity 2. F/U as high risk in 1-2 days Expected Outcomes/Goals Expected Outcomes/Goals 1. PO intake to meet at least 75% of nutritional needs. 2. Wt stability, skin to remain intact, labs to approach WNL.
[2018-11-06] MEDS ORDERED: Sodium Chloride 0.9% 500 ML IV ONE (12:42)
[2018-11-06] MEDS ORDERED: Sodium Chloride 0.9% 500 ML IV SCH (17:15)
--- NOTE | 2018-11-06 18:35 | Progress Notes ---
DATE: 11/06/2018 SUBJECTIVE: The patient was transferred to the ICU, being monitored by Dr. Taylor. She is a well-known case to me. I have seen her before covering for Dr. Vallecillo. She continues to have some episodes of irritability, agitation. Her psychotropic medication will be upheld because of her current medical condition and we will continue to watch and adjust medication as needed. Thank you very much for allowing me to participate in the care of this very interesting lady. JOB# [id number]
--- NOTE | 2018-11-06 20:46 | Progress Notes ---
DATE: 11/06/2018 SUBJECTIVE: The patient seen and examined. The patient is lying in the bed, more alert, has NG tube. The patient currently tolerating tube feeding. Unable to get meaningful history from the patient. PHYSICAL EXAMINATION: VITAL SIGNS: Temperature 98.1, pulse 88, respiratory rate 18, blood pressure 120/68. HEENT: No facial asymmetry. Nasogastric tube noted. NECK: Supple, no JVD. HEART: Regular. LUNGS: Expiratory wheezing. ABDOMEN: Soft. Bowel sounds are present. EXTREMITIES: No edema. NEUROLOGIC: Alert, awake, following commands. AVAILABLE DIAGNOSTIC DATA: White count of 16.2, hemoglobin 14.7, platelet count of 287. Potassium of 3.1, BUN and creatinine is 27 and 0.5, magnesium of 1.8. Troponin is 0.39. CLINICAL IMPRESSION: 1. Congestive heart failure exacerbation. 2. Non-Q wave myocardial infarction. 3. Systolic heart failure. 4. Cardiomyopathy. 5. Leukocytosis. 6. Dysphagia. 7. Hypotension. 8. Dementia. 9. Hypokalemia. 10. Degenerative joint disease. 11. High risk for fall. 12. Protein calorie malnutrition. PLAN: Discontinue NG tube and start the patient on p.o. diet if the patient passes swallow evaluation. Replace potassium and magnesium for now. Continue oxygen, nebulizer treatment, aspirin, beta blockers, statins along with diuretics and nitrates. Continue Cozaar as prescribed. Fall precautions. General nursing care and will also put the patient on empirical IV antibiotic in the view of her hospitalization and high risk of having aspiration. Care plan reviewed and discussed with RN. JOB# [id number]
[2018-11-07] MEDS: Albuterol/Ipratropium Neb 3 ML AERS HHN SCH ×3 (07:49→18:15)
[2018-11-07] MEDS: Lactobacillus Rhamnosus GG 15 Billion CFU CAP.SPRINK PO SCH ×2 (08:54→16:42)
[2018-11-07] MEDS: Aspirin 81mg Chewable Tab PO SCH (08:54)
[2018-11-07] MEDS: Multivitamin Tab PO SCH (08:55)
[2018-11-07] MEDS: Potassium Chloride 20 mEq ER Tab PO SCH (08:55)
[2018-11-07] MEDS: Enoxaparin 40 mg/0.4 mL 0.4mL Syr SUBQ SCH (08:58)
[2018-11-07] MEDS: Polyvinyl Alcohol Ophth Soln 15 mL Bottle EACH EYE SCH ×2 (11:26→16:50)
--- NOTE | 2018-11-07 11:42 | General Progress Note ---
Subjective - Review of Systems Service Date: 11/07/18 Subjective: Patient is still lethargic patient failed swallow eval Objective - Results Result Diagrams: 11/06/18 04:05 11/06/18 04:05 Recent Labs: Laboratory Last Values WBC 16.2 Th/cmm (4.8-10.8) H D 11/06/18 04:05 RBC 4.76 Mil/cmm (3.80-5.20) 11/06/18 04:05 Hgb 14.7 gm/dL (12-16) 11/06/18 04:05 Hct 43.9 % (41.0-60) 11/06/18 04:05 MCV 92.1 fl (81-100) 11/06/18 04:05 MCH 30.8 pg (27.0-31.0) 11/06/18 04:05 MCHC Differential 33.5 pg (28.0-36.0) 11/06/18 04:05 RDW 14.1 % (11.5-20.0) 11/06/18 04:05 Plt Count 287 Th/cmm (150-400) 11/06/18 04:05 MPV 8.7 fl 11/06/18 04:05 Add Manual Diff 11/06/18 04:05 Neutrophils % 80.5 % (40.0-80.0) H 11/05/18 04:40 Band Neutrophils % 0 % (0-10) 11/06/18 04:05 Lymphocytes % 15.1 % (20.0-50.0) L 11/05/18 04:40 Monocytes % 3.7 % (2.0-10.0) 11/05/18 04:40 Eosinophils % 0.6 % (0.0-5.0) 11/05/18 04:40 Basophils % 0.1 % (0.0-2.0) 11/05/18 04:40 Neutrophils (Manual) 89 % (40-80) H 11/06/18 04:05 Lymphocytes 7 % (20-50) L 11/06/18 04:05 Monocytes 3 % (2-10) 11/06/18 04:05 Eosinophils 1 % (0-5) 11/06/18 04:05 Basophils 0 % (0-3) 11/06/18 04:05 Sodium 137 mEq/L (136-145) 11/06/18 04:05 Potassium 3.1 mEq/L (3.5-5.1) L 11/06/18 04:05 Chloride 97 mEq/L (98-107) L 11/06/18 04:05 Carbon Dioxide 30.5 mEq/L (21.0-31.0) 11/06/18 04:05 Anion Gap 12.6 (7.0-16.0) 11/06/18 04:05 BUN 27 mg/dL (7-25) H 11/06/18 04:05 Creatinine 0.5 mg/dL (0.6-1.2) L 11/06/18 04:05 Est GFR ( Amer) TNP 11/06/18 04:05 Est GFR (Non-Af Amer) TNP 11/06/18 04:05 BUN/Creatinine Ratio 54.0 11/06/18 04:05 Glucose 136 mg/dL (70-105) H 11/06/18 04:05 POC Glucose 104 MG/DL (70 - 105) 11/06/18 12:22 Calcium 8.7 mg/dL (8.6-10.3) 11/06/18 04:05 Magnesium 1.8 mg/dL (1.9-2.7) L 11/06/18 04:05 Total Bilirubin 0.6 mg/dL (0.3-1.0) 11/05/18 04:40 AST 28 U/L (13-39) 11/05/18 04:40 ALT 21 U/L (7-52) 11/05/18 04:40 Alkaline Phosphatase 108 U/L (34-104) H 11/05/18 04:40 Troponin I 0.39 ng/mL (0.01-0.05) H* 11/06/18 04:05 B-Natriuretic Peptide 509.0 pg/mL (5.0-100.0) H 11/05/18 04:40 Total Protein 6.1 gm/dL (6.0-8.3) 11/05/18 04:40 Albumin 3.0 gm/dL (3.7-5.3) L 11/05/18 04:40 Globulin 3.1 gm/dL 11/05/18 04:40 Albumin/Globulin Ratio 1.0 (1.0-1.8) 11/05/18 04:40 Triglycerides 113 mg/dL (<150) 11/04/18 04:35 Cholesterol 131 mg/dL (<200) 11/04/18 04:35 LDL Cholesterol Direct 72 mg/dL (75-193) L 11/04/18 04:35 HDL Cholesterol 33 mg/dL (23-92) 11/04/18 04:35 - Physical Exam Vitals and I&O: Vital Signs Temp 99.0 F 11/07/18 08:00 Pulse 83 11/07/18 10:33 Resp 18 11/07/18 08:00 BP 133/64 11/07/18 10:33 Pulse Ox 96 11/07/18 08:00 Intake & Output 11/06/18 11/07/18 11/07/18 18:59 06:59 18:59 Intake Total 800 400 Output Total 550 4 Balance 250 396 Weight (lbs) 34.927 kg 34.927 kg Intake: Tube Feeding 400 200 Other 400 200 Output: Urine 550 Stool 4 Other: # Voids 4 # Bowel Movements 1 Weight Source Bedscale Bedscale Active Medications: Current Medications Acetaminophen (Tylenol) 325 mg PO Q4HR PRN PRN Reason: Pain (Mild) Stop: 01/02/19 08:58 Last Admin: 11/05/18 20:13 Dose: 325 mg Albuterol/Ipratropium (Duoneb Neb) 3 ml [facility] [id number] [facility] Stop: 01/02/19 12:59 Last Admin: 11/07/18 07:49 Dose: 3 ml Albuterol/Ipratropium (Duoneb Neb) 3 ml HHN Q2H PRN PRN Reason: Wheezing Stop: 01/02/19 08:58 Artificial Tears (Artificial Tears Ophth Soln) 2 drop EACH EYE BID [facility] Stop: 01/02/19 08:59 Last Admin: 11/07/18 11:26 Dose: Not Given Aspirin (Aspirin Chewable) 81 mg PO DAILY [facility] Stop: 01/02/19 09:14 Last Admin: 11/07/18 08:54 Dose: 81 mg Atorvastatin Calcium (Lipitor) 40 mg PO DAILY [facility]; Protocol Stop: 01/02/19 09:14 Last Admin: 11/07/18 08:55 Dose: 40 mg Bisacodyl (Dulcolax 10 Mg Supp) 10 mg RC Q2D PRN PRN Reason: Constipation Stop: 01/02/19 08:58 Carvedilol (Coreg) 3.125 mg PO BID VIC Stop: 01/02/19 08:59 Last Admin: 11/07/18 10:33 Dose: 3.125 mg Donepezil HCl (Aricept) 10 mg PO HS VIC Stop: 01/02/19 20:59 Last Admin: 11/06/18 21:12 Dose: 10 mg Furosemide (Lasix) 40 mg IVP DAILY [facility]IC Stop: 01/01/19 22:59 Last Admin: 11/07/18 08:56 Dose: 40 mg Gabapentin (Neurontin) 300 mg PO TID VIC Stop: 01/02/19 08:59 Last Admin: 11/07/18 08:54 Dose: 300 mg Sodium Chloride (Nacl 0.9%) 500 mls @ 0 mls/hr IV .Q0M VIC Stop: 01/05/19 17:14 Lactobacillus Rhamnosus (Culturelle 15b) 1 each PO BID VIC Stop: 01/02/19 08:59 Last Admin: 11/07/18 08:54 Dose: 1 each Latanoprost (Xalatan 0.005% Ophth Soln) 1 drop EACH EYE HS [facility]IC Stop: 01/02/19 20:59 Last Admin: 11/06/18 21:16 Dose: 1 drop Lorazepam (Ativan) 0.5 mg PO Q4HR PRN; Protocol PRN Reason: Agitation Stop: 01/02/19 08:58 Last Admin: 11/03/18 10:53 Dose: 0.5 mg Losartan Potassium (Cozaar) 25 mg PO DAILY VIC Stop: 01/06/19 08:59 Last Admin: 11/07/18 10:33 Dose: Not Given Memantine (Namenda) 5 mg PO DAILY VIC Stop: 01/02/19 08:59 Last Admin: 11/07/18 08:54 Dose: 5 mg Mirtazapine (Remeron) 7.5 mg PO HS VIC; Protocol Stop: 01/02/19 20:59 Last Admin: 11/06/18 21:11 Dose: 7.5 mg Miscellaneous (Vte Chemical Prophylaxis Screen/ Admission) 1 ea MC PRN PRN PRN Reason: PROTOCOL Stop: 01/02/19 09:23 Multivitamins/Vitamin C (Theragran) 1 tab PO DAILY VIC Stop: 01/02/19 08:59 Last Admin: 11/07/18 08:55 Dose: 1 tab Potassium Chloride (Klor-Con) 20 meq PO DAILY VIC Stop: 01/02/19 08:59 Last Admin: 11/07/18 08:55 Dose: 20 meq Risperidone (Risperdal) 1 mg PO DAILY VIC; Protocol Stop: 01/02/19 08:59 Last Admin: 11/07/18 08:54 Dose: 1 mg Risperidone (Risperdal) 1 mg PO HS VIC; Protocol Stop: 01/02/19 20:59 Last Admin: 11/06/18 21:11 Dose: 1 mg Senna (Senna) 8.6 mg PO BID VIC Stop: 01/02/19 08:59 Last Admin: 11/07/18 09:49 Dose: Not Given Sodium Phosphate (Fleet Enema) 135 ml RC Q2D PRN PRN Reason: IF DULCOLAX INEFFECTIVE Stop: 01/02/19 08:58 Trazodone HCl (Desyrel) 25 mg PO HS PRN; Protocol PRN Reason: Insomnia Stop: 01/02/19 08:58 General: No acute distress HEENT: Mucous membr. moist/pink Neck: Supple, JVD, +2 carotid pulse wo bruit (flight) Cardiovascular: Regular rate, Normal S1, Normal S2, Systolic murmurs Lungs: Clear to auscultation, Normal air movement Abdomen: Bowel sounds, Soft, Other (no organomegaly) Extremities: Edema (no edema) Neurological: Reflexes 2+ - Procedures Procedures: Procedures Procedure Code Date TRANSFUSE NONAUT RED BLOOD CELLS IN PERIPH VEIN, [facility] 77709E3 10/28/18 Assessment/Plan - Assessment Assessment: Non-Q-wave myocardial infarction Congestive heart failure systolic dysfunction acute Cardiomyopathy Major depression Schizoaffective disorder Dementia Osteoporosis Dysphagia protein calorie malnutrition Urinary tract infection - Plan Plan: Continue present management patient to have anticoagulation Nutritional Asmnt/Malnutr-PDOC - Dietary Evaluation Malnutrition Findings (Please click <Entered> for more info): Nutritional Asmnt/Malnutrition Start: 11/03/18 15: 31 Text: Status: Active Freq: Protocol: Document 11/03/18 15:31 [email or web address] (Rec: 11/03/18 16:02 [id number]) Nutritional Asmnt/Malnutrition Patient General Information Nutritional Screening High Risk Diagnosis NON Q-Wave [place] Pertinent Medical Hx/Surgical Hx Dementia, Deperssion, HTN, Degenerative joihnt disease, HX of recurrent UTI Subjective Information A 88 years old female was admitted from long-term d/t Non Q-WAVE [place]. Per chart, Pt is currently on NPO d/t swallow eval. Current Diet Order/ Nutrition Support NPO Pertinent Medications Lipitor, Dulcolax, Lovenox, Lasix, Cultreelle, Cozaar, Remeron, Theragran, Senna, Fleet Enema Pertinent Labs 11/03 POTASS 2.9, Cr 0.5, Alb 3 .3 Nutritional Hx/Data Height 1.5 m Height (Calculated Centimeters) 149.9 Current Weight (lbs) 36.287 kg Weight (Calculated Kilograms) 36.3 Weight (Calculated Grams) 65849.4 Given Body Weight 43.2 kg Body Mass Index (BMI) 16.1 Weight Status Underweight GI Symptoms GI Symptoms None Last BM 11/03 Skin Integrity/Comment: Anthony 13, Discoloration on right wrist amd right hand, reddened on sacral Current %PO Negligible < 25% Estimated Nutritional Goals BEE in Kcals: Adj wt of IBW Calories/Kcals/Kg 30-35 Kcal/kg Kcals Calculated 1058-0781 Kcal Protein: Adj wt of IBW Protein g/k-1.2 g/kg Protein Calculated 40-48 g Fluid: ml 9150-2241 ml (1ml/Kcal) Nutritional Problem 1. Problem Problem Inadequate Oral Intake Etiology Swallow Eval Signs/Symptoms: NPO status Malnutrition Related to Morbid Obesity Malnutrition related to morbid obesity No Intervention/Recommendation Comments 1. Monitor NPO status, wt, labs and skin integrity 2. F/U as high risk in 1-2 days Expected Outcomes/Goals Expected Outcomes/Goals 1. PO intake to meet at least 75% of nutritional needs. 2. Wt stability, skin to remain intact, labs to approach WNL.
--- NOTE | 2018-11-07 20:16 | Progress Notes ---
DATE: 11/07/2018 IDENTIFICATION DATA: This is an 88-year-old female. SUBJECTIVE: The patient seen and examined. The patient is lying in the bed. The patient is little lethargic than usual. The patient had episode of hypotension, which did get better with IV fluid. The patient is currently tolerating tube feeding. The patient is not following any command as compared to before. PHYSICAL EXAMINATION: VITAL SIGNS: Temperature 99.2, pulse 103, respiratory rate 18, blood pressure 138/60. HEENT: No facial asymmetry. NECK: Supple, no JVD. HEART: Both heart sounds are regular. LUNGS: Expiratory wheezing throughout. ABDOMEN: Soft, no guarding, no rigidity. Bowel sounds present. No palpable mass. EXTREMITIES: No edema. AVAILABLE DIAGNOSTIC DATA: None for my review today. The patient's chest x-ray on 11/04/2018 did show infiltrate. CLINICAL IMPRESSION: 1. Altered level of consciousness mostly from encephalopathy, medication versus infectious versus metabolic. 2. Congestive heart failure. 3. Cardiomyopathy. 4. Non-Q myocardial infarction. 5. Hypertension. 6. Bilateral pneumonia. 7. Degenerative joint disease. 8. Psychotic disorder. 9. Dementia. PLAN: In the view of her medical history and patient needs to have acute care. The patient is not clinically showing improvement. I will have an acute long-term care, evaluation and if the patient accepted, we will transfer this patient. Meanwhile, the patient will discontinue Lovenox, considering the patient has a downward trend of troponin. We will get the admission lab and will get the chest x-ray as well. Continue current medication as prescribed. Nasogastric feeding at this time. We will follow information resource consultant's recommendations. Care plan reviewed. JOB# [id number]
--- NOTE | 2018-11-08 00:08 | Progress Notes ---
DATE: 11/07/2018 SUBJECTIVE: Case was discussed with staff of the patient. The patient is on oxygen mask. The patient continues to be unable to make safe plan for self-care. However, because of her medical condition, her medication psychotropic has been withheld. The patient continues to need total self-care and we will continue to watch with you. Thank you very much for allowing me to participate in the care of this most interesting lady. [facility]# [id number]
== END 2018-11-07 21:45 | DRG 280 ==
LOC: ICU 19:22 → TELE 11-05 19:20
PROVIDERS: ADMIT Internal Medicine; ATTEND Internal Medicine
DX: I21.4 Non-ST elevation (NSTEMI) myocardial infarction (principal); I50.21 Acute systolic (congestive) heart failure; J96.00 Acute respiratory failure, unspecified whether with hypoxia or hypercapnia; J18.9 Pneumonia, unspecified organism; G92 Toxic encephalopathy; J81.1 Chronic pulmonary edema; I42.9 Cardiomyopathy, unspecified; E46 Unspecified protein-calorie malnutrition; Z68.1 Body mass index [BMI] 19.9 or less, adult; N39.0 Urinary tract infection, site not specified; M81.0 Age-related osteoporosis without current pathological fracture; F03.90 Unspecified dementia, unspecified severity, without behavioral disturbance, psychotic disturbance, mood disturbance, and anxiety; R13.10 Dysphagia, unspecified; F29 Unspecified psychosis not due to a substance or known physiological condition; F32.9 Major depressive disorder, single episode, unspecified; M19.90 Unspecified osteoarthritis, unspecified site; I25.10 Atherosclerotic heart disease of native coronary artery without angina pectoris; I11.0 Hypertensive heart disease with heart failure; D72.829 Elevated white blood cell count, unspecified; I95.9 Hypotension, unspecified; E87.6 Hypokalemia; F25.9 Schizoaffective disorder, unspecified; Z87.440 Personal history of urinary (tract) infections; Z88.6 Allergy status to analgesic agent; Z88.2 Allergy status to sulfonamides; Z88.8 Allergy status to other drugs, medicaments and biological substances; Z88.5 Allergy status to narcotic agent
CPT/HCPCS: 36415-UA; 71045-TC; 74000-TC; 80048-TC; 80053-TC; 80061-TC; 82948-90; 83735-TC; 83880-TC; 84484-TC; 85007-TC; 85025-TC; 90799; 93005; 94760; 97530; J1650; J1940; J3475; J3480; J7030; J7040; X3401; X7704; Z7610